=== PATIENT | female | born 1985 | race Caucasian/White ===

== ENCOUNTER 2016-06-16 07:30 | Inpatient (IN) | payer OTHER ==
[2016-06-07 08:28] VITALS: BMI 25.8
--- NOTE | 2016-06-16 07:20 | P.GSHP ---
History of Present Illness H&P Date: 06/16/16 CHIEF COMPLAINT: Recurrent diaphragmatic hiatal hernia. HISTORY OF PRESENT ILLNESS: Smiley Landrum is a 31 year-old female with a prior history of diaphragmatic hiatal hernia with Tamika fundoplasty that was done over 2+ years ago. She had severe complications that were unexpected from the procedure, which had put her into intractable nausea and vomiting, including dysphagia to solid foods. She had a repeat upper endoscopy, which now demonstrates recurrence of her hernia of between 4-[address] scan also demonstrates the same. She actually went to the emergency room over the weekend with severe chest pain, which was consistent from her symptomatic diaphragmatic hiatal hernia. She now presents for further evaluation and management. PAST MEDICAL HISTORY: Please see list. PAST SURGICAL HISTORY: Please see list. MEDICATIONS: Please see list. ALLERGIES: Please see list. SOCIAL HISTORY: No illicit drug use FAMILY HISTORY: No reports of Crohn disease or ulcerative colitis. REVIEW OF ORGAN SYSTEMS: Constitutional: Unintentional of over 100+ pounds weight loss in the last 2 years. HEENT: Wears glasses. Reports dysphagia to solid foods. GI: New onset severe chronic constipation. Gastroesophageal reflux disease. Musculoskeletal: Osteoarthritis. History of back pain. LYMPHATIC: The patient denies any lumps and bumps around the neck. ENDOCRINE: Denies any thyroid disorders. Denies any blood sugar glucose intolerance. RESPIRATORY: Denies pneumonia. Denies any troubles with breathing or dyspnea on exertion. CARDIOVASCULAR: Denies any chest pain, palpitations, or recent heart attacks. GENITOURINARY: Denies any blood in urine or increased urinary frequency. NEUROLOGIC: Denies any numbness or tingling along the distal extremities. No seizure disorders or headaches. PSYCHIATRIC: Denies any depression or suicidal ideation. HEMATOLOGIC: Denies any abnormal bleeding or bruising. BREASTS: Denies any breast lumps, pain or nipple discharge. PHYSICAL EXAM: VITAL SIGNS: Stable Abdomen: Focal epigastric discomfort without peritonitis. GENERAL: Well developed and in no acute distress. Pleasant. HEENT: No sclera icterus. Extraocular movements grossly intact. Moist buccal mucosa. Head is atraumatic, normocephalic. Hears conversational speech. No nasal drainage. NECK: Supple without lymphadenopathy. No JV distention. CHEST: Non-labored respirations and equal bilateral excursions. CARDIOVASCULAR: Regular rate and rhythm. Palpable 2+ radial pulses. MUSCULOSKELETAL: No clubbing, cyanosis or edema. NEUROLOGIC: No focal or lateralizing signs. PSYCH: Appropriate affect. Alert and oriented to person, place and time. STUDIES: CT of the abdomen/pelvis was reviewed in detail with findings demonstrating a large recurrent diaphragmatic hiatal hernia above the diaphragm. Upper endoscopy was also consistent with 6 cm diaphragmatic hiatal hernia. ASSESSMENT: 1. Recurrent diaphragmatic hiatal hernia. 2. Gastroesophageal reflux disease. 3. Dysphagia. 4. Unwanted weight loss. 5. Gastroparesis. PLAN: 1. I have recommended a manometry to exclude esophageal dysmotility as she was told she also had gastroparesis. 2. She had discontinued Reglan, which is exacerbating her symptoms. 3. She did respond to Pepcid and as a result, I have placed her on Omeprazole 40 mg daily, including Zantac for night time heartburn relief. 4. I have reviewed with her the risks for a repeat Tamika fundoplasty including injury to the stomach, esophagus and lungs. Inpatient hospitalization of overnight is anticipated. 5. DVT prophylaxis. 6. Antibiotics prophylaxis. 7. She has completed her manometry with no findings of scleroderma or achalasia. Past Medical History Past Medical History: Asthma, GERD/Reflux, Hyperlipidemia Additional Past Medical History / Comment(s): hiatal hernia, constipation/ diarrhea, History of Any Multi-Drug Resistant Organisms: None Reported Past Surgical History: Back Surgery, Cholecystectomy Additional Past Surgical History / Comment(s): tamika fundoplasty, back surgery x 2 Past Anesthesia/Blood Transfusion Reactions: No Reported Reaction Past Psychological History: Anxiety, Bipolar, Depression Smoking Status: Former smoker Past Alcohol Use History: None Reported Additional Past Alcohol Use History / Comment(s): quit smoking 2014, smoked for 2 yrs -1 PPD Past Drug Use History: Marijuana - Past Family History Mother Family Medical History: No Reported History Medications and Allergies Home Medications Medication Instructions Recorded Confirmed Type Ergocalciferol [Vitamin D2] 50,000 unit PO Q7D 04/14/16 06/07/16 History FLUoxetine HCL [PROzac] 20 mg PO HS 04/14/16 06/07/16 History QUEtiapine [SEROquel] 25 mg PO HS 04/14/16 06/07/16 History clonazePAM [KlonoPIN] 0.5 mg PO BID 04/14/16 06/07/16 History lamoTRIgine [LaMICtal] 400 mg PO HS 04/14/16 06/07/16 History Baclofen 10 mg PO TID 06/07/16 06/07/16 History Omeprazole 40 mg PO HS 06/07/16 06/07/16 History Allergies Allergy/AdvReac Type Severity Reaction Status Date / Time cephalexin [From Keflex] Allergy Rash/Hives Verified 06/07/16 08:21 Iodinated Contrast Media - Allergy Rash/Hives Verified 06/07/16 08:21 Oral and [Iodinated Contrast Media - IV Dye] ketorolac [From Toradol] Allergy Rash/Hives Verified 06/07/16 08:21
[~2016-06-16 07:30] MED LIST: ACETAMINOPHEN IV (For NPO) 1,000 MG in EMPTY BAG 1 BAG IVPB ONE; CLINDAMYCIN 900 MG in DEXTROSE 5% IN WATER 50 ML IVPB ONE; DEXAMETHASONE SOD PHOSPHATE 10 MG/ML 1 ML VIAL IV ONE; HEPARIN SODIUM,PORCINE 5,000 UNIT/ML 1 ML VIAL SQ ONE; LACTATED RINGERS 1,000 ML IV SCH; MIDAZOLAM 2 MG/2 ML VIAL IV PRN; ONDANSETRON 4 MG/2 ML VIAL IVP ONE; SCOPOLAMINE 1.5MG/72HR PATCH TRANSDERM ONE
[2016-06-16] MEDS ORDERED: LIDOCAINE 1% 20 ML VIAL (10MG/ML) FOR IV START INTRADERMA ONE (07:51)
[2016-06-16] MEDS ORDERED: MIDAZOLAM 2 MG/2 ML VIAL IV ONE (08:10)
[2016-06-16 08:18] LABS: Potassium 4.2 mmol/L (3.5-5.1)
[2016-06-16] MEDS ORDERED: LIDOCAINE 1% INJ 10MG/ML (20 ML MDV) ONE (09:16)
[2016-06-16] MEDS ORDERED: fentaNYL (PF) 50 MCG/ML 2 ML AMP ONE (09:16)
[2016-06-16] MEDS ORDERED: PROPOFOL 10 MG/ML 20 ML VIAL IV ONE (09:16)
[2016-06-16] MEDS ORDERED: SUCCINYLCHOLINE CHLORIDE 100 MG/5 ML SYR IV ONE (09:16)
[2016-06-16] MEDS ORDERED: NEOSTIGMINE 1 MG/ML 10 ML VIAL ONE (09:16)
[2016-06-16] MEDS ORDERED: MIDAZOLAM 2 MG/2 ML VIAL ONE (09:16)
[2016-06-16] MEDS ORDERED: ROCURONIUM BROMIDE 10 MG/ML 10 ML VIAL IV ONE (09:16)
[2016-06-16] MEDS ORDERED: GLYCOPYRROLATE 0.2 MG/ML 2 ML VIAL ONE (09:16)
[2016-06-16] MEDS ORDERED: ESMOLOL 100 MG/10 ML VIAL ONE (09:16)
[2016-06-16] MEDS ORDERED: HYDROmorphone (PF) 1 MG/ML ONE (09:16)
[2016-06-16] MEDS ORDERED: BUPIVACAIN-EPI 0.25%-1:200,000 30 ML VIAL SQ ONE (09:57)
[2016-06-16] MEDS ORDERED: diphenhydrAMINE 50 MG/ML 1 ML VIAL IVP PRN (13:37)
[2016-06-16] MEDS ORDERED: SIMETHICONE 40 MG/0.6 ML DROPS 2,000 MG/30 ML BOTTLE PO PRN (13:37)
[2016-06-16] MEDS ORDERED: HYOSCYAMINE ORAL DROPS 1.875 MG/15 ML BOTTLE PO PRN (13:37)
[2016-06-16] MEDS ORDERED: NALOXONE 0.4 MG/ML 1 ML VIAL IV PRN (13:37)
[2016-06-16] MEDS ORDERED: HYDROcodone/APAP 15 ML SOLUTION PO PRN (13:37)
--- NOTE | 2016-06-16 13:37 | P.PCN ---
Date of Procedure: 06/16/16 Preoperative Diagnosis: Recurrent paraesophageal hiatal hernia, gastroesophageal reflux disease, atypical chest pain, previous history of Kristopher fundoplasty Postoperative Diagnosis: Incarcerated recurrent paraesophageal midline hiatal herni, 5 cm, same Procedure(s) Performed: 1. Laparoscopic lysis of adhesions over 2-1/2 hours 2. Takedown of previous Kristopher fundoplasty. 3. Reduction of incarcerated paraesophageal midline diaphragmatic hiatal hernia 5 cm with obstruction. 4. Laparoscopic paraesophageal diaphragmatic hiatal hernia 5 cm with [place] Biopatch a 8 x 8 cm. 5. Laparoscopic Kristopher fundoplasty 6. Intraoperative esophagogastroduodenoscopy Anesthesia: GETA, local Surgeon: Andra Epstein Field Artillery Targeting Technician #1: Shanika Palafox Estimated Blood Loss (ml): 50 Pathology: other (Incarcerated paraesophageal hiatal hernia sac) Condition: stable Disposition: floor Indications for Procedure: Large incarcerated Kristopher fundoplasty in the thoracic cavity requiring moderate reduction in lysis of adhesions over 2-1/2 hours. Final defect 5 cm diaphragmatic hiatal hernia with previous mesh identified along the posterior hiatus. [place] Biopatch a placed along the anterior hiatus with overlap of the posterior hiatus. Bougie of 54-Italian past along hiatal hernia repair. EGD demonstrates intact fundoplasty without leak or defects.
[2016-06-16] MEDS ORDERED: ACETAMINOPHEN IV (For NPO) 1,000 MG in EMPTY BAG 1 BAG IVPB ONE (14:00)
[2016-06-16] MEDS: HYDROmorphone 1 MG/ML 1 ML SYRINGE IVP PRN ×4 (14:09→21:49)
--- NOTE | 2016-06-16 14:32 | XR ---
EXAMINATION TYPE: XR chest 1V portable DATE OF EXAM: 06/16/2016 2:14 PM HISTORY: Dyspnea. REFERENCE: NONE. FINDINGS: There is subcutaneous air present bilaterally and along the left side of the neck. No defin ite pneumothorax is seen. No displaced rib fracture is seen. The lungs appear clear. Pleural spaces a re clear. Heart size is upper limits of normal. The been previous left upper quadrant surgery. IMPRESSION: 1. BILATERAL AREAS OF SUBCUTANEOUS EMPHYSEMA. THE CAUSE OF THIS IS UNCERTAIN. 2. NO DEFINITE ACUTE INTRATHORACIC ABNORMALITY.
[2016-06-16] MEDS: ALBUTEROL NEBULIZED 2.5 MG/3 ML INHALATION SCH ×2 (15:23→21:38)
[2016-06-16] MEDS: 0.9% NACL WITH KCL 20 MEQ/L 1,000 ML IV SCH ×2 (15:47→22:01)
[2016-06-16] MEDS: ONDANSETRON 4 MG/2 ML VIAL IVP PRN (17:46)
[2016-06-16] MEDS: CLINDAMYCIN 900 MG in DEXTROSE 5% IN WATER 50 ML IVPB SCH ×2 (18:39)
--- NOTE | 2016-06-16 20:52 | P.PN ---
Subjective Principal diagnosis: Paraesophageal hiatal hernia The patient is postop day 0 status post takedown of incarcerated recurrent paraesophageal hiatal hernia including redo Kristopher fundoplasty. She reports shoulder pain is improved. She's tolerating ice chips. No reports of reflux disease. Objective - Vital Signs Vital signs: Vital Signs Temp 97.1 F L 06/16/16 14:58 Pulse 72 06/16/16 18:43 Resp 16 06/16/16 18:43 BP 121/73 06/16/16 18:43 Pulse Ox 95 06/16/16 18:43 Intake & Output 06/16/16 06/16/16 06/17/16 06:59 18:59 06:59 Intake Total 3956 Output Total 150 Balance 3806 Weight 77.111 kg Intake: IV 3956 Output: Urine 100 Estimated Blood Loss 50 Other: # Voids 1 - Exam GENERAL: Well developed and in no acute distress. Pleasant. HEENT: No sclera icterus. Extraocular movements grossly intact. Moist buccal mucosa. Head is atraumatic, normocephalic. Hears conversational speech. No nasal drainage. NECK: Supple without lymphadenopathy. No JV distention. CHEST: Non-labored respirations and equal bilateral excursions. CARDIOVASCULAR: Regular rate and rhythm. Palpable 2+ radial pulses. ABDOMEN: Soft, nondistended. Incision sites clean dry and intact. Mild incisional pain as expected. MUSCULOSKELETAL: No clubbing, cyanosis or edema. NEUROLOGIC: No focal or lateralizing signs. PSYCH: Appropriate affect. Alert and oriented to person, place and time. - Labs CBC & Chem 7: 06/16/16 07:53 Labs: Abnormal Lab Results - Last 24 Hours (Table) 06/16/16 Range/Units 07:53 Chloride 108 H (98-107) mmol/L Assessment and Plan (1) History of Kristopher fundoplication Status: Acute (2) Slipped Kristopher fundoplication Status: Acute (3) Paraesophageal hernia with obstruction but no gangrene Status: Acute (4) Gastroesophageal reflux Status: Chronic (5) Atypical chest pain Status: Chronic (6) Dysphagia Status: Chronic (7) Depression Status: Chronic (8) Bipolar disorder, unspecified Status: Chronic (9) Osteoarthritis Status: Chronic (10) History of repair of hiatal hernia Status: Acute Plan: 1. Clinically she is improved. 2. Recommend magnesium levels to be checked for hypo-magnesia. 3. Upper GI in the morning to evaluate for dysphagia. 4. I personally discussed her home medication list with the pharmacist. Most of her medications are crushable or capsules may be open. 5. Postop Kristopher diet to include liquid diet only for 2 weeks. 6. Incentive spirometry 10 times per hour. 7. DVT prophylaxis.
[2016-06-16] MEDS ORDERED: FLUoxetine HCL 20 MG CAP PO SCH (21:00)
[2016-06-16] MEDS ORDERED: lamoTRIgine 100 MG TAB PO SCH (21:00)
[2016-06-16] MEDS ORDERED: QUEtiapine 25 MG TAB PO SCH (21:00)
[2016-06-16] MEDS: clonazePAM 0.5 MG TAB PO SCH (21:55)
[2016-06-17] MEDS: HYDROmorphone 1 MG/ML 1 ML SYRINGE IVP PRN ×3 (01:48→11:43)
[2016-06-17] MEDS: CLINDAMYCIN 900 MG in DEXTROSE 5% IN WATER 50 ML IVPB SCH ×2 (01:54)
[2016-06-17] MEDS: 0.9% NACL WITH KCL 20 MEQ/L 1,000 ML IV SCH (04:40)
[2016-06-17 08:06] LABS: Basophils % (A) 0 %; CH 28.8; Eosinophils % (A) 0 %; HDW 2.55; HGB 12.2 gm/dL (11.4-16.0); Luc # (Auto) 0.07; Luc % (Auto) 1; Lymphocytes # (A) 0.8 k/uL (1.0-4.8); Lymphocytes % (A) 8 %; MCH 28.8 pg (25.0-35.0); MCV 87.4 fL (80.0-100.0); Mean Platelet Volume 7.1; Monocytes # (A) 0.5 k/uL (0-1.0); Monocytes % (A) 5 %; Neutrophils # (A) 8.2 k/uL (1.3-7.7); Neutrophils % (A) 86 %; RBC 4.23 m/uL (3.80-5.40); WBC 9.6 k/uL (3.8-10.6); WBC (Perox) 10.51
[2016-06-17 08:21] LABS: Anion Gap 7 mmol/L; Blood Urea Nitrogen 7 mg/dL (7-17); Calcium 8.3 mg/dL (8.4-10.2); Carbon Dioxide 23 mmol/L (22-30); Chloride 108 mmol/L (98-107); Magnesium 1.5 mg/dL (1.6-2.3); Non-African American GFR(MDRD) >60 (>60 ml/min/1.73 sqM); Phosphorous 3.3 mg/dL (2.5-4.5); Potassium 4.6 mmol/L (3.5-5.1); Sodium 138 mmol/L (137-145)
[2016-06-17] MEDS: ALBUTEROL NEBULIZED 2.5 MG/3 ML INHALATION SCH ×2 (08:58→12:04)
[2016-06-17] MEDS ORDERED: ENOXAPARIN 40 MG/0.4 ML SYRINGE SQ SCH (09:00)
[2016-06-17] MEDS ORDERED: PANTOPRAZOLE 40 MG/10 ML VIAL IV SCH (09:00)
--- NOTE | 2016-06-17 09:25 | FL ---
EXAMINATION TYPE: FL UGI DATE OF EXAM: 06/17/2016 9:17 AM COMPARISON: NONE HISTORY: Post Josep fundoplication TECHNIQUE: A single/double contrast UGI study is performed. FINDINGS: Repulping Supervisor image of the abdomen shows no gross abnormality. The distal esophagus opens to normal caliber post Josep fundoplication without significant hesitancy . No persistent stenosis is evident. Contrast within the stomach. No reflux is evident during the exam. No significant free air is present . IMPRESSION: 1. No extravasation or persistent stenosis post Josep fundoplication.
--- NOTE | 2016-06-17 09:43 | OP ---
DATE OF SERVICE: 06/16/2016 SURGEON: ROYAL LAI MD AIR FORCE SENIOR OFFICER: GHADA Giles PREOPERATIVE DIAGNOSES: 1. Previous history of Kristopher fundoplasty. 2. Dysphagia secondary to prior Kristopher fundoplasty. 3. Complications from previous hiatal hernia repair. 4. Recurrent diaphragmatic hiatal hernia. 5. Dysphagia. 6. History of depression. 7. Asthma. 8. Anxiety. 9. Bipolar disorder. 10. Depression. 11. Gastroesophageal reflux disease with esophagitis. POSTOPERATIVE DIAGNOSES: 1. Previous history of Kristopher fundoplasty. 2. Dysphagia secondary to prior Kristopher fundoplasty. 3. Complications from previous hiatal hernia repair. 4. Recurrent diaphragmatic hiatal hernia. 5. Dysphagia. 6. History of depression. 7. Asthma. 8. Anxiety. 9. Bipolar disorder. 10. Depression. 11. Gastroesophageal reflux disease with esophagitis. 12. Incarcerated recurrent diaphragmatic midline paraesophageal hiatal hernia, 5 cm. OPERATION: 1. Diagnostic laparoscopy. 2. Laparoscopic reduction of incarcerated midline periesophageal diaphragmatic hiatal hernia. 3. Extensive laparoscopic lysis of adhesions over 2-1/2 hours. 4. Laparoscopic repair of incarcerated recurrent diaphragmatic hiatal hernia 5 cm using [place] Biopatch A 8 x 8 cm. 5. Laparoscopic Kristopher fundoplasty. 6. Intraoperative esophagogastroduodenoscopy. ANESTHESIA: ESTIMATED BLOOD LOSS: 50 mL. SPECIMENS REMOVED: Hernia sac. COMPLICATIONS: None. OPERATIVE FINDINGS: 1. Recurrent midline diaphragmatic hiatal hernia was found along the anterior hiatus. 2. Her initial fundoplasty was found incarcerated along the mediastinum causing obstruction. 3. Moderate extensive lysis of adhesions and takedown of her Kristopher fundoplasty was required over 2-1/2 hours. 4. The right vagi nerve was found to be intact. 5. Intra-abdominal esophageal length obtained of 3 cm. 6. Size of her paraesophageal hiatal hernia of 5 cm. 7. Previous mesh identified along the hiatus from the 9 o'clock to the 3 o'clock position of a [place] type or nonabsorbable type. 8. 54 Sinhala bougie easily passed along the hiatal hernia repair. 9. Intraoperative esophagogastroduodenoscopy confirms no leaks or esophageal or gastric mucosal full-thickness injury. 10. No evidence of lower abdominal wall hernias. INDICATIONS: Smiley Landrum is a 31-year-old female with previous history of Kristopher fundoplasty done over 2+ years ago at an outside institution. She reports she had multiple complications from her procedure including recurrent chest pain and neck pain. Her reflux disease had progressed and she has developed also gastroparesis. She has had chronic nausea and vomiting including recurrent admissions to the ER as a result of the complications from her Kristopher fundoplasty. She has undergone diagnostic testing, including manometry which excluded scleroderma or achalasia. She had features consistent with ineffective motility from persistent reflux disease. Her upper endoscopy including CT of the abdomen and pelvis was consistent with recurrent diaphragmatic hiatal hernia with herniation of the fundoplasty into the mediastinum. Surgical intervention was carefully described including the possibility of bleeding, infection, recurrence, injury to the bilateral vagi nerves as well as need for revision of her Kristopher fundoplasty, and dysphagia. The possibility of abandoning her procedure was also reviewed with her and her mother. Benefits and risks were reviewed. Informed consent was obtained. DESCRIPTION: Patient was brought to the operating room, laid in supine position. After general induction, the abdomen had been prepped and draped in standard sterile fashion. Prior to incision, a timeout protocol was confirmed with surgical team regarding the patient's name including procedure to be performed. A Chowdhury catheter had also been placed. Along the left upper quadrant, a 10 mm 0-degree 5 mm laparoscopic trocar entry was performed and entered into abdominal cavity. No evidence of lower abdominal hernias were identified. Of the hiatus, an indentation anterior was consistent with recurrent diaphragmatic hiatal hernia. Next two 5 mm trocars were placed along the left upper abdomen. Another 5 mm trocar was placed just above the umbilicus for which the xiphoid to the umbilical length was 9.5 cm. Another 5 mm trocar was placed along the right upper quadrant for the catering administrative assistant. A medium-sized Julio liver retractor was placed just below the xiphoid as to elevate the left lobe of the liver. The liver retractor was held in place using an iron spring internship. The patient was placed in reverse Trendelenburg position. Along the hiatus especially along the gastrohepatic ligament, this portion was completely scarred from her previous surgery. Initial attention was brought from the left lateral aspect of the hernia and the phrenoesophageal ligament was carefully dissected free. Dense adhesions from her previous surgery was scarred to her fundoplasty along the liver serosa and carefully dissected free. Extensive lysis of adhesions occurred well over 2-1/2 hours as to execute with minimal bleeding or injury to the stomach, vagi nerve or liver parenchyma. A hiatal hernia sac was encountered and reduced from the mediastinum into the abdominal cavity. As such, the previous fundoplasty was reduced into the abdominal cavity and dissected free and unwoven. Surgidac sutures from her previous surgery were identified and also resected. Along the posterior hiatus a remnant of what appeared to be a [place] type mesh was identified to reinforce the posterior hiatal herniorrhaphy. Her recurrence was found anteriorly for which this portion of the hiatal hernia repair was not reinforced. With careful communication with anesthesia, the rest of the esophagus was bluntly dissected and mobilized from the distal to mid and proximal esophagus as to obtain adequate length of the esophagus. Over 3 cm of intraabdominal esophageal length was obtained. As the esophagus and fundoplasty were completely taken down after 2-1/2 plus hours, the hiatus was measured consistent with 5 cm in both the axial as well as transverse dimension. Again, the length of the esophagus was found to be at least 3 to 4 cm into the abdominal cavity as to perform an adequate redo Kristopher fundoplasty. Attention was now brought to closure of the hiatus, however, to confirm no esophageal injury or gastric injury, I then went to the head of the bed to perform intraoperative esophagogastroduodenoscopy. An adult size Olympus gastroscope was passed along the posterior oropharynx down to the distal esophagus whereby no injury had occurred along the distal esophagus. The proximal portion of the stomach was entered and also confirmed no gastrotomy. The scope was retroflexed with careful observation of the lower esophageal valve, which is consistent with a Hill grade 2 lower esophageal valve. This confirmed complete takedown of her Kristopher fundoplasty as well. The scope was held in place as to allow for the hiatus closure. I then rescrubbed whereby initial 2-Surgidac on an Endo Stitch was used to perform initial closure along the posterior hiatal herniorrhaphy. Given the size and thickness of the haital tissue, a single suture using 2-0 Ethibond with the suture passer technique was used to reapproximate the hiatus. Tension along the re-approximated hiatus was identified and secure. With coordination with the nurse chemical research technician and direct visualization, a 54 Sinhala bougie had easily passed along the esophagus beyond the repaired hiatus confirming a good approximation of the hiatal closure. Next to buttress the repair, a [place] Biopatch A 8 x 8 cm was cut in a keyhole fashion as to reinforce the anterior hiatus including circumferentially. The mesh was placed as an [place] of the posterior hiatal hernia raphe and actually placed in a reverse C position. The mesh was tacked at the 9 o'clock and 12 o'clock position without any encroachment onto the esophagus. Please note the righ vagus nerve was identified and spared from harm. As the hiatus was closed and the mesh had been placed, preparation for a Krsitopher fundoplasty was performed. The cut edge of the superior pole of the stomach was swung posteriorly. A Shoe shine technique confirmed no tension or torsion of the proposed Kristopher fundoplasty. Next, with the help of the catering administrative assistant, the esophagus was retracted into the abdominal cavity as to obtain secure fundoplication over the distal esophagus. A gastric to esophageal to gastric bite was performed from a left to right fashion. The stitch was placed using a 2-0 Surgidac and Endo Stitch. Additional 2-0 sutures were placed to create approximately 2.5 cm Kristopher fundoplasty. The fundoplasty was found to lay at the 1 o'clock position given her redo repair. Hemostasis had been checked. I then went back to the head of the bed to perform a completion endoscopic evaluation whereby the distal esophagus again was unharmed. Retroflexion of the scope into the stomach confirmed a 360 repair with a Hill grade I lower esophageal valve. Again no full thickness gastrotomy or esophageal injury was confirmed. The stomach was desufflated. This completed the endoscopic portion of the case. I then went back to the bedside of the patient whereby all instruments and pneumoperitoneum were evacuated from the abdominal cavity. Her 10 mm port site fascial defect was less than 8 mm. The incision of the 11 mm trocar was reinforced using 3-0 Vicryl for the deep dermis. For the rest of the incisions 4-0 Monocryl in an interrupted subcuticular fashion was placed. Total of 30 mL 0.25% Marcaine with epinephrine was infiltrated to all wounds for postop analgesia. The skin was cleansed and Dermabond was applied. Of the left lateral port site, this was reinforced with Optifoam. Her chowdhury catheter was discontinued. To minimize risk for thoracic subcutaneous emphysema, the patient was hyperventilated at the end of the case. The patient was transferred to the postanesthesia care unit, extubated in stable condition. Intraoperative films including findings were carefully discussed with the patient's family who were very pleased with the procedure. CATALINO
[2016-06-17 09:44] VITALS: BP 110/70; PULSE 82; RESP 19; TEMP 97.3
[2016-06-17] MEDS: MAGNESIUM SULFATE-D5W PMX 1 GM in DEXTROSE/WATER 1 100ML.BAG IVPB SCH ×4 (10:07→13:59)
[2016-06-17] MEDS: clonazePAM 0.5 MG TAB PO SCH (10:11)
[2016-06-17] MEDS ORDERED: HYDROcodone/APAP 7.5-325MG 1 EACH TAB PO PRN (12:03)
--- NOTE | 2016-06-17 12:15 | P.PN ---
Subjective Principal diagnosis: Paraesophageal hiatal hernia The patient is postop day 1 status post takedown of incarcerated recurrent paraesophageal hiatal hernia including redo Kristopher fundoplasty. Her shoulder pain is resolved. She is swallowing without any signs of dysphagia. She had also passed her swallow study. She complains of incisional pain. Objective - Vital Signs Vital signs: Vital Signs Temp 97.3 F L 06/17/16 09:43 Pulse 82 06/17/16 09:43 Resp 19 06/17/16 09:43 BP 110/70 06/17/16 09:43 Pulse Ox 94 L 06/17/16 09:43 Intake & Output 06/16/16 06/17/16 06/17/16 18:59 06:59 18:59 Intake Total 3956 Output Total 150 350 Balance 3806 -350 Weight 77.111 kg 77.111 kg Intake: IV 3956 Output: Urine 100 350 Estimated Blood Loss 50 Other: # Voids 1 - Exam GENERAL: Well developed and in no acute distress. Pleasant. HEENT: No sclera icterus. Extraocular movements grossly intact. Moist buccal mucosa. Head is atraumatic, normocephalic. Hears conversational speech. No nasal drainage. NECK: Supple without lymphadenopathy. No JV distention. CHEST: Non-labored respirations and equal bilateral excursions. CARDIOVASCULAR: Regular rate and rhythm. Palpable 2+ radial pulses. ABDOMEN: Soft nondistended. Incisions clean dry and intact with Dermabond. MUSCULOSKELETAL: No clubbing, cyanosis or edema. NEUROLOGIC: No focal or lateralizing signs. PSYCH: Appropriate affect. Alert and oriented to person, place and time. - Labs CBC & Chem 7: 06/17/16 07:10 06/17/16 07:10 Labs: Abnormal Lab Results - Last 24 Hours (Table) 06/17/16 06/17/16 Range/Units 07:10 07:10 Neutrophils # 8.2 H (1.3-7.7) k/uL Lymphocytes # 0.8 L (1.0-4.8) k/uL Chloride 108 H (98-107) mmol/L Calcium 8.3 L (8.4-10.2) mg/dL Magnesium 1.5 L (1.6-2.3) mg/dL - Imaging and Cardiology Abdominal x-ray: other (Esophagram reviewed demonstrating no evidence of obstruction or leak) Assessment and Plan (1) History of Kristopher fundoplication Status: Acute (2) Slipped Kristopher fundoplication Status: Acute (3) Paraesophageal hernia with obstruction but no gangrene Status: Acute (4) Gastroesophageal reflux Status: Chronic (5) Atypical chest pain Status: Chronic (6) Dysphagia Status: Chronic (7) Depression Status: Chronic (8) Bipolar disorder, unspecified Status: Chronic (9) Osteoarthritis Status: Chronic (10) History of repair of hiatal hernia Status: Acute Plan: 1. Her symptoms of dysphagia and reflux is resolved. 2. Pain medication options reviewed. She reports prohibitive cost of liquid Narco. We'll start oral tablets. 3. Post-Kristopher diet was reviewed. 4. Patient may be discharged in 24 hours.
[2016-06-17] MEDS ORDERED: HYDROcodone/APAP 15 ML SOLUTION PO PRN (12:30)
--- NOTE | 2016-06-17 12:35 | P.DS ---
Providers Date of admission: 06/16/16 07:42 Expected date of discharge: 06/17/16 Attending physician: Andra Epstein Primary care physician: Elaina Dolan - Discharge Diagnosis(es) (1) History of Kristopher fundoplication Current Visit: Yes Status: Acute (2) Slipped Kristopher fundoplication Current Visit: Yes Status: Acute (3) Paraesophageal hernia with obstruction but no gangrene Current Visit: Yes Status: Acute (4) Gastroesophageal reflux Current Visit: Yes Status: Chronic (5) Atypical chest pain Current Visit: Yes Status: Chronic (6) Dysphagia Current Visit: Yes Status: Chronic (7) Depression Current Visit: Yes Status: Chronic (8) Bipolar disorder, unspecified Current Visit: Yes Status: Chronic (9) Osteoarthritis Current Visit: Yes Status: Chronic (10) History of repair of hiatal hernia Current Visit: Yes Status: Acute Hospital Course: The patient has history of previous Kristohper fundoplasty done at an outside his situation now with recurrence. She had a slipped Kristopher including a diaphragmatic hiatal hernia with obstruction. She underwent takedown of her Kristopher fundoplasty including lysis of adhesions. A redo Kristopher fundoplasty with diaphragmatic hiatal hernia repair was performed. Postoperatively she was tolerating diet. Her symptoms of atypical chest pain including dysphagia and reflux had resolved. Discharge instructions including discharge diet were reviewed which she verbalized understanding. Pertinent Studies: Upper GI demonstrating no leaks or complete obstruction Procedures: 1. Laparoscopic lysis of adhesions over 2-1/2 hours 2. Takedown of previous Kristopher fundoplasty. 3. Reduction of incarcerated paraesophageal midline diaphragmatic hiatal hernia 5 cm with obstruction. 4. Laparoscopic paraesophageal diaphragmatic hiatal hernia 5 cm with [employer] Biopatch a 8 x 8 cm. 5. Laparoscopic Kristopher fundoplasty 6. Intraoperative esophagogastroduodenoscopy Patient Condition at Discharge: Stable Plan - Discharge Summary Discharge Medication List FLUoxetine HCL [PROzac] 20 mg PO HS 04/14/16 [History] QUEtiapine [SEROquel] 25 mg PO HS 04/14/16 [History] clonazePAM [KlonoPIN] 0.5 mg PO BID 04/14/16 [History] lamoTRIgine [LaMICtal] 400 mg PO HS 04/14/16 [History] Baclofen 10 mg PO TID 06/07/16 [History] HYDROcodone/APAP [[place] Elixir 7.5-325Mg/15Ml] 15 ml PO Q6H PRN #0 solution [Rx] Follow up Appointment(s)/Referral(s): Andra Epstein MD [STAFF PHYSICIAN] - 06/27/16 Patient Instructions/Handouts: Adult Laparoscopic Kristopher Fundoplication (DC), Laparoscopic Hiatal Hernia Repair (DC), Clear Liquid Diet (GEN) Activity/Diet/Wound Care/Special Instructions: All of her medications may be crushed and taken with liquids. No lifting over 4 pounds in 4 weeks. Avoid carbonated beverages. Follow Kristopher diet per [facility] Kristopher diet. May shower. Discharge Disposition: HOME SELF-CARE
[2016-06-17] MEDS: ONDANSETRON 4 MG/2 ML VIAL IVP PRN (15:03)
[2016-06-18] MEDS ORDERED: BISACODYL 5 MG TABLET.DR PO PRN (08:00)
== END 2016-06-17 15:35 | disposition home or self-care (01) | DRG 327 ==
LOC: 2ORWHC 07:42 → 6PED 13:43
PROVIDERS: ADMIT Surgery Plastic and Reconstructive Surgery; ATTEND Surgery Plastic and Reconstructive Surgery
PROC: 0BUR4JZ (ICD-10-PCS; 2016-06-16)
PROC: 0BUS4JZ (ICD-10-PCS; 2016-06-16)
PROC: 0DN54ZZ Release Esophagus, Percutaneous Endoscopic Approach (ICD-10-PCS; 2016-06-16)
PROC: 0DN64ZZ Release Stomach, Percutaneous Endoscopic Approach (ICD-10-PCS; 2016-06-16)
PROC: 0DJ08ZZ Inspection of Upper Intestinal Tract, Via Natural or Artificial Opening Endoscopic (ICD-10-PCS; 2016-06-16)
PROC: 0DV44ZZ Restriction of Esophagogastric Junction, Percutaneous Endoscopic Approach (ICD-10-PCS; principal; 2016-06-16 09:00)
DX: K91.89 Other postprocedural complications and disorders of digestive system (principal); K44.0 Diaphragmatic hernia with obstruction, without gangrene; K66.8 Other specified disorders of peritoneum; K31.84 Gastroparesis; R13.19 Other dysphagia; K21.9 Gastro-esophageal reflux disease without esophagitis; E78.5 Hyperlipidemia, unspecified; J45.909 Unspecified asthma, uncomplicated; F31.9 Bipolar disorder, unspecified; F41.9 Anxiety disorder, unspecified; M19.90 Unspecified osteoarthritis, unspecified site; Y83.8 Other surgical procedures as the cause of abnormal reaction of the patient, or of later complication, without mention of misadventure at the time of the procedure; Z87.891 Personal history of nicotine dependence; Z79.899 Other long term (current) drug therapy
CPT/HCPCS: 71010; 74240; 80051; 82310; 82565; 83735; 84100; 84520; 85025; 88302; 94760

== ENCOUNTER 2016-06-18 05:38 | Inpatient (IN) | payer OTHER ==
[2016-06-18] MEDS ORDERED: SODIUM CHLORIDE 0.9% 500 ML IV STA (06:46)
[2016-06-18] MEDS ORDERED: ONDANSETRON 4 MG/2 ML VIAL IVP STA ×2 (06:46→07:21)
[2016-06-18 06:59] LABS: Basophils # (A) 0.1 k/uL (0-0.2); Basophils % (A) 1 %; CH 29.3; CHCM 34.6; Eosinophils # (A) 0.1 k/uL (0-0.7); Eosinophils % (A) 2 %; HCT 39.7 % (34.0-46.0); HDW 2.58; HGB 13.3 gm/dL (11.4-16.0); Luc # (Auto) 0.02; Luc % (Auto) 0; Lymphocytes # (A) 0.6 k/uL (1.0-4.8); Lymphocytes % (A) 8 %; MCH 28.4 pg (25.0-35.0); MCHC 33.4 g/dL (31.0-37.0); Mean Platelet Volume 7.9; Monocytes # (A) 0.4 k/uL (0-1.0); Monocytes % (A) 6 %; Neutrophils # (A) 6.1 k/uL (1.3-7.7); Neutrophils % (A) 83 %; RBC 4.67 m/uL (3.80-5.40); RDW 12.2 % (11.5-15.5); WBC 7.3 k/uL (3.8-10.6); WBC (Perox) 7.41
[2016-06-18 07:09] LABS: ALT 260 U/L (9-52); AST 242 U/L (14-36); Alkaline Phosphatase 75 U/L (38-126); Amylase <30 U/L (30-110); Anion Gap 8 mmol/L; Blood Urea Nitrogen 5 mg/dL (7-17); Calcium 8.7 mg/dL (8.4-10.2); Carbon Dioxide 25 mmol/L (22-30); Chloride 107 mmol/L (98-107); Glucose 90 mg/dL (74-99); Non-African American GFR(MDRD) >60 (>60 ml/min/1.73 sqM); Potassium 4.1 mmol/L (3.5-5.1); Sodium 140 mmol/L (137-145); Total Bilirubin 1.1 mg/dL (0.2-1.3); Total Protein 6.2 g/dL (6.3-8.2)
[2016-06-18] MEDS: MORPHINE SULFATE 4 MG/ML SYRINGE IV STA ×2 (07:14→08:01)
[2016-06-18] MEDS ORDERED: HYDROmorphone 1 MG/ML 1 ML SYRINGE IVP STA (07:21)
[2016-06-18] MEDS ORDERED: ACETAMINOPHEN IV (For NPO) 1,000 MG in SALINE 100 100ML.BAG IVPB STA (07:22)
--- NOTE | 2016-06-18 07:25 | ED ---
General Adult HPI - General Chief complaint: Nausea/Vomiting/Diarrhea Stated complaint: Vomiting Time Seen by Provider: 06/18/16 07:00 Source: patient, family, RN notes reviewed Mode of arrival: ambulatory Limitations: no limitations - History of Present Illness Initial comments: This is a 31-year-old female who presents to the emergency department complaining of vomiting. Patient states she was just released from the hospital yesterday after having a redo of hiatal hernia surgery. Patient states she got home and became nauseous and was unable to keep down any pain meds so now her abdomen is very painful plus the vomiting is making her abdomen hurt more. Patient states she remains nauseated. Patient denies any blood in the emesis. Patient denies any diarrhea. Patient denies any fever chills. Patient denies any chest pain or difficulty breathing or shortness of breath. She does state it is a little more difficult to take a deep breath but she thinks is because of her abdominal pain. Patient denies any lightheadedness dizziness or near syncopal episode. Patient denies any redness or drainage from the incision sites. - Related Data Home Medications Medication Instructions Recorded Confirmed FLUoxetine HCL [PROzac] 20 mg PO HS 04/14/16 06/18/16 QUEtiapine [SEROquel] 25 mg PO HS 04/14/16 06/18/16 clonazePAM [KlonoPIN] 0.5 mg PO BID 04/14/16 06/18/16 lamoTRIgine [LaMICtal] 400 mg PO HS 04/14/16 06/18/16 Baclofen 10 mg PO TID 06/07/16 06/18/16 Previous Rx's Medication Instructions Recorded HYDROcodone/APAP [[place] Elixir 15 ml PO Q6H PRN #0 solution 06/17/16 7.5-325Mg/15Ml] Allergies Allergy/AdvReac Type Severity Reaction Status Date / Time cephalexin [From Keflex] Allergy Rash/Hives Verified 06/18/16 06:14 Iodinated Contrast Media - Allergy Rash/Hives Verified 06/18/16 06:14 Oral and [Iodinated Contrast Media - IV Dye] ketorolac [From Toradol] Allergy Rash/Hives Verified 06/18/16 06:14 Review of Systems ROS Statement: Those systems with pertinent positive or pertinent negative responses have been documented in the HPI. ROS Other: All systems not noted in ROS Statement are negative. Past Medical History Past Medical History: Asthma, GERD/Reflux, Hyperlipidemia Additional Past Medical History / Comment(s): hiatal hernia, constipation/ diarrhea, History of Any Multi-Drug Resistant Organisms: None Reported Past Surgical History: Back Surgery, Cholecystectomy Additional Past Surgical History / Comment(s): tamika fundoplasty, back surgery x 2 Past Anesthesia/Blood Transfusion Reactions: No Reported Reaction Past Psychological History: Anxiety, Bipolar, Depression Smoking Status: Former smoker Past Alcohol Use History: None Reported Additional Past Alcohol Use History / Comment(s): quit smoking 2014, smoked for 2 yrs -1 PPD Past Drug Use History: Marijuana - Past Family History Mother Family Medical History: No Reported History General Exam - General Exam Comments Initial Comments: GENERAL: Patient is well-developed and well-nourished. Patient is nontoxic and well- hydrated and is in mild distress. ENT: Neck is soft and supple. No significant lymphadenopathy is noted. Oropharynx is clear. Moist mucous membranes. Neck has full range of motion without eliciting any pain. EYES: The sclera were anicteric and conjunctiva were pink and moist. Extraocular movements were intact and pupils were equal round and reactive to light. Eyelids were unremarkable. PULMONARY: Unlabored respirations. Good breath sounds bilaterally. No audible rales rhonchi or wheezing was noted. CARDIOVASCULAR: There is a regular rate and rhythm without any murmurs gallops or rubs. ABDOMEN: Abdomen is diffusely tender. SKIN: Skin is clear with no lesions or rashes and otherwise unremarkable. NEUROLOGIC: Patient is alert and oriented x3. Cranial nerves II through XII are grossly intact. Motor and sensory are also intact. Normal speech, volume and content. Symmetrical smile. MUSCULOSKELETAL: Normal extremities with adequate strength and full range of motion. LYMPHATICS: No significant lymphadenopathy is noted PSYCHIATRIC: Normal psychiatric evaluation. Limitations: no limitations Course Vital Signs 06/18/16 06:10 Temperature 98.4 F Pulse Rate 91 Respiratory 20 Rate Blood Pressure 132/82 O2 Sat by Pulse 96 Oximetry Medical Decision Making - Lab Data Result diagrams: 06/18/16 06:42 06/18/16 06:42 Lab Results 06/18/16 06/18/16 06/18/16 Range/Units 06:42 06:42 07:24 WBC 7.3 (3.8-10.6) k/uL RBC 4.67 (3.80-5.40) m/uL Hgb 13.3 (11.4-16.0) gm/dL Hct 39.7 (34.0-46.0) % MCV 85.0 (80.0-100.0) fL MCH 28.4 (25.0-35.0) pg MCHC 33.4 (31.0-37.0) g/dL RDW 12.2 (11.5-15.5) % Plt Count 120 L (150-450) k/uL Neutrophils % 83 % Lymphocytes % 8 % Monocytes % 6 % Eosinophils % 2 % Basophils % 1 % Neutrophils # 6.1 (1.3-7.7) k/uL Lymphocytes # 0.6 L (1.0-4.8) k/uL Monocytes # 0.4 (0-1.0) k/uL Eosinophils # 0.1 (0-0.7) k/uL Basophils # 0.1 (0-0.2) k/uL Sodium 140 (137-145) mmol/L Potassium 4.1 (3.5-5.1) mmol/L Chloride 107 (98-107) mmol/L Carbon Dioxide 25 (22-30) mmol/L Anion Gap 8 mmol/L BUN 5 L (7-17) mg/dL Creatinine 0.71 (0.52-1.04) mg/dL Est GFR (MDRD) Af Amer >60 (>60 ml/min/1.73 sqM) Est GFR (MDRD) Non-Af >60 (>60 ml/min/1.73 sqM) Glucose 90 (74-99) mg/dL Plasma Lactic Acid Mendez (0.7-2.0) mmol/L Calcium 8.7 (8.4-10.2) mg/dL Total Bilirubin 1.1 (0.2-1.3) mg/dL AST 242 H (14-36) U/L ALT 260 H (9-52) U/L Alkaline Phosphatase 75 (38-126) U/L Total Protein 6.2 L (6.3-8.2) g/dL Albumin 3.5 (3.5-5.0) g/dL Amylase <30 L (30-110) U/L Lipase 1028 H (23-300) U/L Urine Color Light Yellow Urine Appearance Clear (Clear) Urine pH 8.0 (5.0-8.0) Ur Specific [place] 1.004 (1.001-1.035) Urine Protein Negative (Negative) Urine Glucose (UA) Negative (Negative) Urine Ketones 1+ H (Negative) Urine Blood Negative (Negative) Urine Nitrate Negative (Negative) Urine Bilirubin Negative (Negative) Urine Urobilinogen <2.0 (<2.0) mg/dL Ur Leukocyte Esterase Negative (Negative) Urine HCG, Qual (Not Detectd) 06/18/16 06/18/16 Range/Units 07:24 07:59 WBC (3.8-10.6) k/uL RBC (3.80-5.40) m/uL Hgb (11.4-16.0) gm/dL Hct (34.0-46.0) % MCV (80.0-100.0) fL MCH (25.0-35.0) pg MCHC (31.0-37.0) g/dL RDW (11.5-15.5) % Plt Count (150-450) k/uL Neutrophils % % Lymphocytes % % Monocytes % % Eosinophils % % Basophils % % Neutrophils # (1.3-7.7) k/uL Lymphocytes # (1.0-4.8) k/uL Monocytes # (0-1.0) k/uL Eosinophils # (0-0.7) k/uL Basophils # (0-0.2) k/uL Sodium (137-145) mmol/L Potassium (3.5-5.1) mmol/L Chloride (98-107) mmol/L Carbon Dioxide (22-30) mmol/L Anion Gap mmol/L BUN (7-17) mg/dL Creatinine (0.52-1.04) mg/dL Est GFR (MDRD) Af Amer (>60 ml/min/1.73 sqM) Est GFR (MDRD) Non-Af (>60 ml/min/1.73 sqM) Glucose (74-99) mg/dL Plasma Lactic Acid Mendez 0.6 L (0.7-2.0) mmol/L Calcium (8.4-10.2) mg/dL Total Bilirubin (0.2-1.3) mg/dL AST (14-36) U/L ALT (9-52) U/L Alkaline Phosphatase (38-126) U/L Total Protein (6.3-8.2) g/dL Albumin (3.5-5.0) g/dL Amylase (30-110) U/L Lipase (23-300) U/L Urine Color Urine Appearance (Clear) Urine pH (5.0-8.0) Ur Specific [place] (1.001-1.035) Urine Protein (Negative) Urine Glucose (UA) (Negative) Urine Ketones (Negative) Urine Blood (Negative) Urine Nitrate (Negative) Urine Bilirubin (Negative) Urine Urobilinogen (<2.0) mg/dL Ur Leukocyte Esterase (Negative) Urine HCG, Qual Not Detected (Not Detectd) Disposition Clinical Impression: Pancreatitis Disposition: ADMITTED IP TO THIS [facility] Time of Disposition: 09:45
[2016-06-18 07:38] LABS: Appearance,Urine Clear (Clear); Bilirubin,Urine Negative (Negative); Glucose,Urine (UA) Negative (Negative); Ketones,Urine 1+ (Negative); Leukocyte Esterase,Urine Negative (Negative); Nitrite,Urine Negative (Negative); Protein,Urine Negative (Negative); Specific Gravity,Urine 1.004 (1.001-1.035); UA Billing (MACRO vs. MICRO) CHEM; Urobilinogen,Urine <2.0 mg/dL (<2.0)
[2016-06-18] MEDS: SODIUM CHLORIDE 0.9% 1,000 ML IV ONE ×2 (08:00→15:48)
--- NOTE | 2016-06-18 09:16 | XR ---
EXAMINATION TYPE: XR chest 2V DATE OF EXAM: 06/18/2016 8:18 AM COMPARISON: 06/16/2016 INDICATION: Difficulty breathing TECHNIQUE: Frontal and lateral views of the chest are obtained. FINDINGS: The heart size is normal. The pulmonary vasculature is normal. The lungs are clear. Previous subcutaneous emphysema has largely resolved with minimal residual rafael ining. No pneumothorax is evident IMPRESSION: 1. No acute pulmonary process.
[2016-06-18] MEDS ORDERED: SODIUM CHLORIDE 0.9% 1,000 ML IV ONE (09:46)
[2016-06-18] MEDS ORDERED: HYDROmorphone 1 MG/ML 1 ML SYRINGE IVP PRN ×2 (09:48→09:49)
[2016-06-18] MEDS: SODIUM CHLORIDE 0.9% 1,000 ML IV SCH ×3 (11:41→23:22)
[2016-06-18] MEDS ORDERED: SODIUM CHLORIDE 0.9% 2,000 ML IV ONE (12:50)
[2016-06-18] MEDS ORDERED: SCOPOLAMINE 1.5MG/72HR PATCH TRANSDERM STA (13:01)
--- NOTE | 2016-06-18 13:01 | P.GSHP ---
History of Present Illness H&P Date: 06/18/16 Chief Complaint: Intractable nausea and vomiting The patient is a 31-year-old female who is now postop day #2 status post repair of an incarcerated recurrent diaphragmatic hiatal hernia. Actually she had just gone home yesterday and reports that upon arrival at home she started developing nausea. She took an old prescription of Zofran for symptoms. She had taken her pain medication and was able to fall asleep. After waking up early this morning, she had nausea and started retching. Given concerns from her recent surgery, she came right back to the hospital. Her blood work demonstrated elevated lipase level of 1000. She denies any alcohol use. She has a previous cholecystectomy. Since being admitted to the hospital and receiving hydration, her nausea has improved. She is eager to return home. - Review of Systems Comment: CONSTITUTIONAL: Denies any fever or chills. Denies recent weight gain. HEENT: Denies any trouble with vision, hearing or nosebleeds. No difficulty swallowing. LYMPHATIC: The patient denies any lumps and bumps around the neck. ENDOCRINE: Denies any thyroid disorders. Denies any blood sugar glucose intolerance. RESPIRATORY: Denies pneumonia. Denies any troubles with breathing or dyspnea on exertion. CARDIOVASCULAR: Denies any palpitations, or recent heart attacks. GASTROINTESTINAL: Her heartburn is resolved since surgery. She had nausea at this morning which is now improved. GENITOURINARY: Denies any blood in urine or increased urinary frequency. MUSCULOSKELETAL: Has occasional back pain, stiffness or joint arthritis. NEUROLOGIC: Denies any numbness or tingling along the distal extremities. She has history of seizure disorder. PSYCHIATRIC: Has depression. No suidical ideation. Denies any alcohol use. HEMATOLOGIC: Denies any abnormal bleeding or bruising. B Past Medical History Past Medical History: Asthma, GERD/Reflux, Hyperlipidemia Additional Past Medical History / Comment(s): hiatal hernia, constipation/ diarrhea, History of Any Multi-Drug Resistant Organisms: None Reported Past Surgical History: Back Surgery, Cholecystectomy Additional Past Surgical History / Comment(s): Kristopher fundoplasty, back surgery x 2, Repair of recurrent paraesophageal hiatal hernia repair 06/16/2016 Past Anesthesia/Blood Transfusion Reactions: No Reported Reaction Past Psychological History: Anxiety, Bipolar, Depression Smoking Status: Former smoker Past Alcohol Use History: None Reported Additional Past Alcohol Use History / Comment(s): quit smoking 2014, smoked for 2 yrs -1 PPD Past Drug Use History: Marijuana - Past Family History Mother Family Medical History: No Reported History Medications and Allergies Home Medications Medication Instructions Recorded Confirmed Type FLUoxetine HCL [PROzac] 20 mg PO HS 04/14/16 06/18/16 History QUEtiapine [SEROquel] 25 mg PO HS 04/14/16 06/18/16 History clonazePAM [KlonoPIN] 0.5 mg PO BID 04/14/16 06/18/16 History lamoTRIgine [LaMICtal] 400 mg PO HS 04/14/16 06/18/16 History Baclofen 10 mg PO TID 06/07/16 06/18/16 History Allergies Allergy/AdvReac Type Severity Reaction Status Date / Time cephalexin [From Keflex] Allergy Rash/Hives Verified 06/18/16 10:26 Iodinated Contrast Media - Allergy Rash/Hives Verified 06/18/16 10:26 Oral and [Iodinated Contrast Media - IV Dye] ketorolac [From Toradol] Allergy Rash/Hives Verified 06/18/16 10:26 Surgical - Exam Vital Signs Temp Pulse Resp BP Pulse Ox 98.4 F 91 20 132/82 96 06/18/16 06:10 06/18/16 06:10 06/18/16 06:10 06/18/16 06:10 06/18/16 06:10 GENERAL: Well developed and in no acute distress. Pleasant. HEENT: No sclera icterus. Extraocular movements grossly intact. Moist buccal mucosa. Head is atraumatic, normocephalic. Hears conversational speech. No nasal drainage. NECK: Supple without lymphadenopathy. No JV distention. CHEST: Non-labored respirations and equal bilateral excursions. CARDIOVASCULAR: Regular rate and rhythm. Palpable 2+ radial pulses. ABDOMEN: Soft, nondistended. Dermabond along incisions clean dry and intact. No peritonitis. Minimal nettie-incisional tenderness along the left upper quadrant. MUSCULOSKELETAL: No clubbing, cyanosis or edema. NEUROLOGIC: No focal or lateralizing signs. Cranial nerves II through XII grossly intact. PSYCH: Appropriate affect. Alert and oriented to person, place and time. Results - Labs 06/18/16 06:42 06/18/16 06:42 - Imaging Chest x-ray: report reviewed (No recurrent diaphragmatic hiatal hernia identified.), image reviewed Assessment and Plan (1) Elevated lipase Status: Acute (2) Intractable nausea and vomiting Status: Acute (3) Dehydration Status: Acute Plan: 1. She reports that her nausea and vomiting is resolved after IV fluid hydration. 2. She has elevated lipase for unknown reason. Will repeat. 3. Also will recheck her magnesium level. Low magnesium may exacerbate nausea. 4. Continue with IV fluid boluses. 5. Will also add scopolamine patch to address nausea. 6. Potential discharge pending complete resolution of nausea including improvement of her lipase and magnesium levels.
[2016-06-18 13:44] LABS: Magnesium 1.6 mg/dL (1.6-2.3)
[2016-06-18] MEDS ORDERED: HYDROcodone/APAP 15 ML SOLUTION PO PRN (13:51)
[2016-06-18] MEDS ORDERED: MAGNESIUM SULFATE-D5W PMX 1 GM in DEXTROSE/WATER 1 100ML.BAG IVPB STA (14:21)
[2016-06-18] MEDS: ONDANSETRON 4 MG/2 ML VIAL IVP PRN (14:32)
[2016-06-18] MEDS ORDERED: MAGNESIUM SULFATE-D5W PMX 1 GM in DEXTROSE/WATER 1 100ML.BAG IVPB SCH (15:15)
--- NOTE | 2016-06-18 15:29 | P.PN ---
Progress Note - Text Patient complains of epigastric abdominal pain. Lipase is coming down. Will obtain a CT of the abdomen and pelvis.
[2016-06-18 16:04] VITALS: BMI 25.8
[2016-06-18] MEDS: MAGNESIUM SULFATE-D5W PMX 1 GM in DEXTROSE/WATER 1 100ML.BAG IVPB SCH ×3 (16:16→18:48)
[2016-06-19] MEDS: ONDANSETRON 4 MG/2 ML VIAL IVP PRN ×3 (02:43→16:19)
[2016-06-19] MEDS: SODIUM CHLORIDE 0.9% 1,000 ML IV SCH ×2 (05:35→16:27)
[2016-06-19] MEDS: HYDROmorphone 1 MG/ML 1 ML SYRINGE IVP PRN ×3 (07:31→18:33)
[2016-06-19 08:08] LABS: ALT 210 U/L (9-52); AST 119 U/L (14-36); Alkaline Phosphatase 89 U/L (38-126); Anion Gap 9 mmol/L; Blood Urea Nitrogen 3 mg/dL (7-17); Calcium 8.4 mg/dL (8.4-10.2); Carbon Dioxide 19 mmol/L (22-30); Chloride 111 mmol/L (98-107); Glucose 74 mg/dL (74-99); Magnesium 1.9 mg/dL (1.6-2.3); Non-African American GFR(MDRD) >60 (>60 ml/min/1.73 sqM); Potassium 4.1 mmol/L (3.5-5.1); Sodium 139 mmol/L (137-145); Total Bilirubin 1.1 mg/dL (0.2-1.3); Total Protein 6.1 g/dL (6.3-8.2); Triglycerides 112 mg/dL (<150)
[2016-06-19] MEDS: MAGNESIUM SULFATE-D5W PMX 1 GM in DEXTROSE/WATER 1 100ML.BAG IVPB SCH ×2 (09:20→10:35)
[2016-06-19] MEDS ORDERED: PANTOPRAZOLE 40 MG/10 ML VIAL IVP SCH (12:00)
--- NOTE | 2016-06-19 12:00 | P.PN ---
Subjective A 31-year-old female being seen on rounds this morning. Patient states less nausea this morning after changing the pain medication. Patient states that she was given [place] last evening felt nauseated has been retching and since the pain medicine has been switched to IV dilaudid has been effective for pain control with no nausea sensation patient states she continues to feel a bloating sensation to the abdominal wall less surgical discomfort. Patient is postop repair of an incarcerated recurrent diaphragmatic hiatus hernia done on June 16 patient was discharged on the and reported experiencing at home nausea sensation. She did try using Zofran that she had at home and it did not take away the nausea. Patient stated she also was having abdominal discomfort. Patient return to the emergency room to be evaluated for the above-mentioned symptoms. The lipase was elevated 1999. Patient denied any alcohol use. Patient has a history of a prior cholecystectomy. Patient was placed on bowel rest with IV hydration the lipase this morning is down to 286. Additionally the amylase is down to 119 on admission 242 ALT this morning 210. On admission was 260. On admission the magnesium level was 1.1 replacement has been given its now up to 1.9 total bilirubin 1.6 on admission this morning is 1.9 Objective - Vital Signs Vital signs: Vital Signs Temp 97.8 F 06/19/16 07:00 Pulse 90 06/19/16 07:25 Resp 18 06/19/16 07:00 BP 120/80 06/19/16 09:28 Pulse Ox 96 06/19/16 07:00 Intake & Output 06/18/16 06/19/16 06/19/16 18:59 06:59 18:59 Intake Total 120 230 Balance 120 230 Weight 77.111 kg Intake: Oral 120 230 Other: # Voids 1 1 - Exam GENERAL APPEARANCE: 31-year-old female patient is alert, oriented, 3 reports a bloating sensation to the abdominal wall less sensation of nausea no active emesis no stool passing gas in no acute distress. VITAL SIGNS: Reviewed HEENT: Head is normocephalic and atraumatic. Pupils are equal and reactive. The nares are patent. Oropharynx is clear without lesions. NECK: Supple without lymphadenopathy. Traches midline. HEART: S1, S2. Regular rate and rhythm. No murmur noted denying chest pain LUNGS: No crackles or wheezes are heard. Sats on room air 96% bilateral adequate air movement ABDOMEN: Soft, nontender, nondistended with good bowel sounds. Dermabond on incisions clean and dry. Abdomen slightly bloated states passing gas no stool states urinating no difficulty No peritoneal signs. No palpable organomegaly or masses. EXTREMITIES: Normal skin color and turgor. No cyanosis, rash, ulceration, clubbing or edema. Radial pedal pulses are 2/4 bilaterally. NEUROLOGICAL: No focal deficits. Strength and sensation are grossly intact. - Labs CBC & Chem 7: 06/18/16 06:42 06/19/16 06:34 Labs: Abnormal Lab Results - Last 24 Hours (Table) 06/18/16 06/19/16 Range/Units 13:21 06:34 Chloride 111 H (98-107) mmol/L Carbon Dioxide 19 L (22-30) mmol/L BUN 3 L (7-17) mg/dL AST 119 H (14-36) U/L ALT 210 H (9-52) U/L Total Protein 6.1 L (6.3-8.2) g/dL Albumin 3.3 L (3.5-5.0) g/dL Lipase 534 H (23-300) U/L Assessment and Plan Plan: Impression Present on admission nausea vomiting with elevated lipase unclear etiology Present on admission intractable nausea vomiting acute Present on admission acute clinical dehydration suspect due to poor oral intake Present on admission hypo-magnesium Status post repair of an incarcerated recurrent diaphragmatic hiatus hernia done on June 16 Plan Continue IV hydration as ordered CAT scan without contrast abdomen pelvis follow up on results Repeat the labs in the morning Pain control Continue the tamika clear liquid diet DVT and GI prophylaxis Further recommendations pending The above dictated assessment and findings were discussed with dr Lucian Garrett and the plan of care have been dictated as directed. Molly Moyer nurse practitioner acting as a scribe for Lucian
--- NOTE | 2016-06-19 12:47 | CT ---
EXAMINATION TYPE: CT abdomen pelvis wo con DATE OF EXAM: 06/19/2016 12:32 PM COMPARISON: NONE HISTORY: Patient complains of new onset severe abdominal pain post josep REfundoplication. CT DLP: 1097 mGycm FINDINGS: LUNG BASES: Interval development of basilar atelectasis and small pleural effusions. LIVER/GB: The gallbladder is unremarkable. No space-occupying hepatic lesion. PANCREAS: No pancreatic mass identified. No inflammatory process seen. SPLEEN: No evidence for splenomegaly. No intrasplenic lesions seen. ADRENALS: No adrenal nodules identified. No evidence for thickening. KIDNEYS: No evidence for renal mass. No nephrolithiasis. No hydronephrosis. BOWEL: Status post changes of Josep fundoplication. There is elongated density adjacent to the esoph candice at the level of the GE junction which measures 2.0 x 3.7 cm and demonstrates Hounsfield unit ran ging from approximately 13-30. This may reflect a small hematoma or an area of atelectasis. There is extensive wall thickening noted to involve the gastric fundus which may be related to postoperative c hange however edema from other etiologies not excluded. Correlate clinically. Colonic wall thickening may be related to poor distention. Lymph nodes: No evidence for adenopathy greater than 1 cm. Abdominal aorta: Atheromatous changes seen. No evidence for aneurysm. Genital organs: IUD is noted to be in place. Other: There is a small amount of pneumoperitoneum. Small amount of air is identified within the part ially imaged mediastinum. There is also evidence of chest wall air and air extending into the right s ubcutaneous flank region. Mild left-sided chest wall air is also noted. Free fluid is seen within the pelvis. IMPRESSION: 1. SMALL AMOUNT OF THE POSTOPERATIVE PNEUMOPERITONEUM AND PNEUMOMEDIASTINUM. CHEST WALL AIR IS NOTED. 2. WALL THICKENING INVOLVING THE GASTRIC FUNDIC SELLA MAY BE POSTOPERATIVE IN NATURE HOWEVER EDEMA FR OM OTHER ETIOLOGIES IS NOT EXCLUDED. 3. There is elongated density adjacent to the esophagus at the level of the GE junction which measure s 2.0 x 3.7 cm and demonstrates Hounsfield unit ranging from approximately 13-30. This may reflect a small hematoma or an area of atelectasis. 4. Basilar atelectasis and small pleural effusions. There is also evidence of fluid within the pelvis .
[2016-06-19] MEDS ORDERED: traMADol 50 MG TAB PO STA (14:10)
--- NOTE | 2016-06-19 14:47 | P.DS ---
Providers Date of admission: 06/18/16 09:37 Expected date of discharge: 06/19/16 Attending physician: Andra Epstein Primary care physician: Elaina Dolan - Discharge Diagnosis(es) (1) Elevated lipase Current Visit: Yes Status: Acute (2) Intractable nausea and vomiting Current Visit: Yes Status: Acute (3) Dehydration Current Visit: Yes Status: Acute (4) Pancreatitis, acute Current Visit: Yes Status: Acute Hospital Course: The patient is a 31-year-old female who is status post laparoscopic repair of recurrent diaphragmatic hiatal paraesophageal hernia on 06/16/2016. She had done well postoperatively however upon being at home she reported having intractable nausea and vomiting. She then presented back to the emergency room whereby her enzyme levels were consistent with elevated lipase and pancreatitis. Upon close observation, she demonstrated intolerance to Excello elixir although she was able to tolerate this medication on previous surgeries. Upon adjusting her pain medication including starting tramadol, she was able to tolerate her pain meds. Her nausea and vomiting had resolved. Her hypo- magnesia was corrected. She was well hydrated. She was tolerating full Kristopher liquid diet. Discharge instructions were reviewed and she demonstrated understanding. Repeat chemistries demonstrated resolution of pancreatic lipase enzymes. Abdominal pain also improved. CT of the abdomen and pelvis did not demonstrate any fulminating pancreatitis. Patient was stable for discharge. Pertinent Studies: CT of the abdomen and pelvis reviewed demonstrating appropriate postoperative changes along the fundus of the stomach without recurrence of paraesophageal hiatal hernia. No evidence of fulminating pancreatitis. Procedures: None. Patient Condition at Discharge: Good Plan - Discharge Summary New Discharge Prescriptions: Magnesium Oxide [Magox 400] 400 mg PO DAILY #60 tablet Scopolamine 1.5MG/72Hr Patch [TransDerm Scop] 1 patch TRANSDERM Q72H #2 patch traMADol HCL [Ultram] 100 mg PO Q6HR PRN #30 tab PRN Reason: Pain Discharge Medication List FLUoxetine HCL [PROzac] 20 mg PO HS 04/14/16 [History] QUEtiapine [SEROquel] 25 mg PO HS 04/14/16 [History] clonazePAM [KlonoPIN] 0.5 mg PO BID 04/14/16 [History] lamoTRIgine [LaMICtal] 400 mg PO HS 04/14/16 [History] Baclofen 10 mg PO TID 06/07/16 [History] HYDROcodone/APAP [Excello Elixir 7.5-325Mg/15Ml] 15 ml PO Q6H PRN #0 solution [Rx] Magnesium Oxide [Magox 400] 400 mg PO DAILY #60 tablet 06/18/16 [Rx] Scopolamine 1.5MG/72Hr Patch [TransDerm Scop] 1 patch TRANSDERM Q72H #2 patch [Rx] traMADol HCL [Ultram] 100 mg PO Q6HR PRN #30 tab 06/19/16 [Rx] Follow up Appointment(s)/Referral(s): Elaina Dolan MD [Primary Care Provider] - 1-2 days Patient Instructions/Handouts: *Surgery [facility] - Scopalamine Patch Instructions, Pancreatitis (DC), Hypomagnesemia (GEN) Activity/Diet/Wound Care/Special Instructions: Please continue with liquid diet. Stay well-hydrated with fluids over 64 ounces daily. No lifting over 4 pounds in 4 weeks. Discharge Disposition: HOME SELF-CARE
[2016-06-19] MEDS: BACLOFEN 10 MG TAB PO SCH ×3 (18:16→21:45)
[2016-06-19] MEDS ORDERED: DEXAMETHASONE SOD PHOSPHATE 10 MG/ML 1 ML VIAL IV STA (18:32)
--- NOTE | 2016-06-19 18:34 | P.PN ---
Progress Note - Text I was notified by the patient's nurse that she started to retch with nausea and vomiting after tramadol. Overall patient has intolerance to narcotics including oral [place] and oral tramadol. She actually does well with IV Dilaudid. Her home medications have been restarted. I was at bedside evaluating her swallow including tolerance of her home pain meds. We will discontinue all narcotics with exception of IV Dilaudid and start acetaminophen as well as Decadron for nausea. We'll reassess for discharge later today or tomorrow.
[2016-06-19] MEDS ORDERED: ACETAMINOPHEN TAB 325 MG TAB PO PRN (18:43)
[2016-06-19] MEDS: clonazePAM 0.5 MG TAB PO SCH ×3 (19:46→21:47)
[2016-06-19] MEDS ORDERED: FLUoxetine HCL 20 MG CAP PO SCH (21:00)
[2016-06-19] MEDS ORDERED: lamoTRIgine 100 MG TAB PO SCH (21:00)
[2016-06-19] MEDS ORDERED: QUEtiapine 25 MG TAB PO SCH (21:00)
[2016-06-20 07:25] LABS: Basophils % (A) 0 %; CH 28.9; CHCM 33.6; Eosinophils % (A) 0 %; HDW 2.62; HGB 13.3 gm/dL (11.4-16.0); Luc # (Auto) 0.02; Luc % (Auto) 0; Lymphocytes # (A) 0.6 k/uL (1.0-4.8); Lymphocytes % (A) 8 %; MCH 28.6 pg (25.0-35.0); MCHC 33.1 g/dL (31.0-37.0); MCV 86.4 fL (80.0-100.0); Mean Platelet Volume 7.6; Monocytes # (A) 0.1 k/uL (0-1.0); Monocytes % (A) 2 %; Neutrophils # (A) 5.8 k/uL (1.3-7.7); Neutrophils % (A) 89 %; RBC 4.63 m/uL (3.80-5.40); RDW 12.4 % (11.5-15.5); WBC 6.5 k/uL (3.8-10.6); WBC (Perox) 6.59
[2016-06-20 07:36] LABS: ALT 152 U/L (9-52); AST 63 U/L (14-36); Alkaline Phosphatase 99 U/L (38-126); Amylase <30 U/L (30-110); Anion Gap 12 mmol/L; Blood Urea Nitrogen 5 mg/dL (7-17); Calcium 8.8 mg/dL (8.4-10.2); Carbon Dioxide 17 mmol/L (22-30); Chloride 111 mmol/L (98-107); Glucose 111 mg/dL (74-99); Non-African American GFR(MDRD) >60 (>60 ml/min/1.73 sqM); Potassium 4.6 mmol/L (3.5-5.1); Sodium 140 mmol/L (137-145); Total Protein 6.1 g/dL (6.3-8.2)
[2016-06-20] MEDS: SODIUM CHLORIDE 0.9% 1,000 ML IV SCH ×3 (08:02→09:23)
[2016-06-20] MEDS: BACLOFEN 10 MG TAB PO SCH (08:09)
--- NOTE | 2016-06-20 08:52 | P.PN ---
<Molly Moyer Daxa - Last Filed: 06/20/16 08:48> Subjective Patient is being seen on rounds this morning is sitting up in bed states feels "much better did not take anything for pain last night slept through the night. Patient reports being hungry there is no nausea vomiting. Patient did have an episode yesterday of retching with a nausea sensation after taking Ultram. And Mccloud Patient cannot tolerate narcotics including oral Mccloud or oral Ultram. Patient did receive IV Dilaudid. Which was effective for pain control. Patient does states she's anxious to be discharged this morning states she's been up ambulating in the palafox feeling much better off of the narcotics Addition the patient reports abdominal pain significantly improved Objective - Vital Signs Vital signs: Vital Signs Temp 97.1 F L 06/20/16 00:00 Pulse 50 L 06/20/16 00:00 Resp 14 06/20/16 00:00 BP 115/56 06/20/16 00:00 Pulse Ox 98 06/20/16 00:00 Intake & Output 06/19/16 06/20/16 06/20/16 18:59 06:59 18:59 Intake Total 470 250 Balance 470 250 Intake: Oral 470 250 Other: # Voids 2 1 - Exam Physical exam Pleasant cooperative 31-year-old female sitting up in bed denying abdominal pain this been no further nausea vomiting Lungs essentially clear on room air sats 95% Heart S1-S2 audible and regular Abdomen soft surgical sites no redness no drainage active bowel tones nontender not distended urinating no difficulty Extremities no edema - Labs CBC & Chem 7: 06/20/16 06:54 06/20/16 06:54 Labs: Abnormal Lab Results - Last 24 Hours (Table) 06/20/16 06/20/16 Range/Units 06:54 06:54 Lymphocytes # 0.6 L (1.0-4.8) k/uL Chloride 111 H (98-107) mmol/L Carbon Dioxide 17 L (22-30) mmol/L BUN 5 L (7-17) mg/dL Glucose 111 H (74-99) mg/dL AST 63 H (14-36) U/L ALT 152 H (9-52) U/L Total Protein 6.1 L (6.3-8.2) g/dL Albumin 3.2 L (3.5-5.0) g/dL Amylase <30 L (30-110) U/L Assessment and Plan Plan: Impression Present on admission nausea vomiting with elevated lipase unclear etiology Present on admission intractable nausea vomiting acute Present on admission acute clinical dehydration suspect due to poor oral intake Present on admission hypo-magnesium Status post repair of an incarcerated recurrent diaphragmatic hiatus hernia done on June 16 Intolerance to narcotics including oral nor called and Ultram causes nausea with retching and vomiting Plan Prepped for discharge this morning follow-up with Dr. Epstein the office Plain Tylenol for pain control Patient aware the plan of care verbalizes an understanding The above dictated assessment and findings were discussed with dr Epstein Impression and the plan of care have been dictated as directed. Molly Moyer nurse practitioner acting as a scribe for Lucian <Andra Epstein - Last Filed: 06/20/16 12:52> Objective - Vital Signs Vital signs: Vital Signs Temp 97.3 F L 06/20/16 08:15 Pulse 75 06/20/16 08:15 Resp 20 06/20/16 08:15 BP 126/79 06/20/16 08:15 Pulse Ox 96 06/20/16 08:15 Intake & Output 06/19/16 06/20/16 06/20/16 18:59 06:59 18:59 Intake Total 470 250 Balance 470 250 Intake: Oral 470 250 Other: # Voids 2 1 - Labs CBC & Chem 7: 06/20/16 06:54 06/20/16 06:54 Labs: Abnormal Lab Results - Last 24 Hours (Table) 06/20/16 06/20/16 Range/Units 06:54 06:54 Lymphocytes # 0.6 L (1.0-4.8) k/uL Chloride 111 H (98-107) mmol/L Carbon Dioxide 17 L (22-30) mmol/L BUN 5 L (7-17) mg/dL Glucose 111 H (74-99) mg/dL AST 63 H (14-36) U/L ALT 152 H (9-52) U/L Total Protein 6.1 L (6.3-8.2) g/dL Albumin 3.2 L (3.5-5.0) g/dL Amylase <30 L (30-110) U/L Assessment and Plan (1) Elevated lipase Status: Acute (2) Intractable nausea and vomiting Status: Acute (3) Dehydration Status: Acute (4) Pancreatitis, acute Status: Acute (5) Hypomagnesemia Status: Acute (6) Intolerance of drug Status: Acute Plan: Patient doing much better with complete avoidance of narcotics. Tramadol and Mccloud added to list for N/V under allergy list.
[2016-06-20 09:26] VITALS: BP 126/79; PULSE 75; RESP 20; TEMP 97.3
== END 2016-06-20 09:05 | disposition home or self-care (01) | DRG 391 ==
LOC: EC 05:38 → 6PED 09:37
PROVIDERS: ADMIT Surgery Plastic and Reconstructive Surgery; ATTEND Surgery Plastic and Reconstructive Surgery
DX: R11.2 Nausea with vomiting, unspecified (principal); K85.90 Acute pancreatitis without necrosis or infection, unspecified; E83.42 Hypomagnesemia; E86.0 Dehydration; T39.1X5A Adverse effect of 4-Aminophenol derivatives, initial encounter; J45.909 Unspecified asthma, uncomplicated; K21.9 Gastro-esophageal reflux disease without esophagitis; E78.5 Hyperlipidemia, unspecified; K44.9 Diaphragmatic hernia without obstruction or gangrene; Z90.49 Acquired absence of other specified parts of digestive tract; F32.9 Major depressive disorder, single episode, unspecified; F41.9 Anxiety disorder, unspecified; Z79.899 Other long term (current) drug therapy; Z87.891 Personal history of nicotine dependence; Y92.009 Unspecified place in unspecified non-institutional (private) residence as the place of occurrence of the external cause
CPT/HCPCS: 36415; 71020; 74176; 80053; 81003; 81025; 82150; 83605; 83690; 83735; 84425; 84478; 85025; 96361; 96374; 96375; 99285

== ENCOUNTER 2017-01-03 07:35 | Day surgery (SDC) | payer OTHER ==
[2017-01-02 08:50] VITALS: BMI 25.8
[~2017-01-03 07:35] MED LIST changes: -ACETAMINOPHEN IV (For NPO) 1,000 MG in EMPTY BAG 1 BAG IVPB ONE; -CLINDAMYCIN 900 MG in DEXTROSE 5% IN WATER 50 ML IVPB ONE; -DEXAMETHASONE SOD PHOSPHATE 10 MG/ML 1 ML VIAL IV ONE; -HEPARIN SODIUM,PORCINE 5,000 UNIT/ML 1 ML VIAL SQ ONE; -MIDAZOLAM 2 MG/2 ML VIAL IV PRN; -ONDANSETRON 4 MG/2 ML VIAL IVP ONE; -SCOPOLAMINE 1.5MG/72HR PATCH TRANSDERM ONE
[2017-01-03 08:00] VITALS: RESP 16; TEMP 97.8
[2017-01-03] MEDS: LIDOCAINE 1% 20 ML VIAL (10MG/ML) FOR IV START INTRADERMA PRN ×2 (08:00→10:31)
--- NOTE | 2017-01-03 08:03 | P.GSHP ---
History of Present Illness H&P Date: 01/03/17 CHIEF COMPLAINT: GERD HISTORY OF PRESENT ILLNESS: The patient is a 31-year-old female who presents reports gastroesophageal reflux disease. Upper endoscopy was offered for further evaluation and management. PAST MEDICAL HISTORY: Please see list. PAST SURGICAL HISTORY: Please see list. MEDICATIONS: Please see list. ALLERGIES: Please see list. SOCIAL HISTORY: No illicit drug use FAMILY HISTORY: No reports of Crohn disease or ulcerative colitis. REVIEW OF ORGAN SYSTEMS: CONSTITUTIONAL: No reports of fevers or chills. GI: Denies any blood in stools or constipation. PHYSICAL EXAM: VITAL SIGNS: Stable GENERAL: Well-developed and pleasant in no acute distress. HEENT: No scleral icterus. Extraocular movements grossly intact. Moist buccal mucosa. NECK: Supple without lymphadenopathy. CHEST: Unlabored respirations. Equal bilateral excursions. CARDIOVASCULAR: Regular rate and rhythm. Distal 2+ pulses. ABDOMEN: Soft, nondistended. MUSCULOSKELETAL: No clubbing, cyanosis, or edema. ASSESSMENT: 1. Gastroesophageal reflux disease PLAN: 1. Recommend proceeding with an upper endoscopy Past Medical History Past Medical History: Asthma, GERD/Reflux, Hyperlipidemia Additional Past Medical History / Comment(s): constipation/diarrhea, History of Any Multi-Drug Resistant Organisms: None Reported Past Surgical History: Back Surgery, Cholecystectomy Additional Past Surgical History / Comment(s): Kristopher fundoplasty, back surgery x 2, Repair of recurrent paraesophageal hiatal hernia repair 06/16/2016, IUD INSERTION Past Anesthesia/Blood Transfusion Reactions: No Reported Reaction Smoking Status: Former smoker - Past Family History Mother Family Medical History: No Reported History Medications and Allergies Home Medications Medication Instructions Recorded Confirmed Type FLUoxetine HCL [PROzac] 20 mg PO HS 04/14/16 01/02/17 History clonazePAM [KlonoPIN] 0.5 mg PO HS 04/14/16 01/02/17 History Baclofen 10 mg PO BID 06/07/16 01/02/17 History Aclidinium Moffat [Tudorza 1 puff PO BID 01/02/17 01/02/17 History Pressair] Albuterol Inhaler [Ventolin Hfa 1 - 2 puff INHALATION BID 01/02/17 01/02/17 History Inhaler] Beclomethasone Dip 80 Mcg/Puff 2 puff INHALATION BID 01/02/17 01/02/17 History [Qvar] QUEtiapine [SEROquel] 100 mg PO HS 01/02/17 01/02/17 History Salmeterol Xinafoate [Serevent 50 mcg IH DAILY 01/02/17 01/02/17 History Diskus] Allergies Allergy/AdvReac Type Severity Reaction Status Date / Time cephalexin [From Keflex] Allergy Rash/Hives Verified 01/03/17 07:53 Iodinated Contrast- Oral and Allergy Rash/Hives Verified 01/03/17 07:53 IV Dye [Iodinated Contrast Media - IV Dye] ketorolac [From Toradol] Allergy Rash/Hives Verified 01/03/17 07:53 tramadol [From Ultram] AdvReac Intermediate Abdominal Verified 01/03/17 07:53 Pain acetaminophen [From [place]] AdvReac Nausea & Verified 01/03/17 07:53 Vomiting hydrocodone [From [place]] AdvReac Nausea & Verified 01/03/17 07:53 Vomiting Surgical - Exam Vital Signs Temp Pulse Resp BP Pulse Ox 97.8 F 76 16 103/69 96 01/03/17 07:58 01/03/17 07:58 01/03/17 07:58 01/03/17 07:58 01/03/17 07:58
[2017-01-03] MEDS ORDERED: GLYCOPYRROLATE 0.2 MG/ML 2 ML VIAL ONE (08:04)
[2017-01-03] MEDS ORDERED: LIDOCAINE 1% INJ 10MG/ML (20 ML MDV) ONE (08:04)
[2017-01-03] MEDS ORDERED: PROPOFOL 10 MG/ML 20 ML VIAL IV ONE (08:04)
--- NOTE | 2017-01-03 08:17 | P.PCN ---
Date of Procedure: 01/03/17 Preoperative Diagnosis: Postoperative Diagnosis: Procedure(s) Performed: Implants: Indications for Procedure: Operative Findings: Description of Procedure: PREOPERATIVE DIAGNOSIS: Gastroesophageal reflux disease. History of Kristopher fundoplasty revision. Intractable nausea. Epigastric pain. POSTOPERATIVE DIAGNOSIS: Gastroesophageal reflux disease. History of Kristopher fundoplasty revision. Intractable nausea. Epigastric pain. OPERATION: Esophagogastroduodenoscopy with biopsies along antrum. SURGEON: Andra Epstein MD ANESTHESIA: MAC. INDICATIONS: The patient is a 31-year-old female who presents with a history of reflux disease. Benefits and risks of the procedure were described. Informed consent was obtained. DESCRIPTION: The patient was brought into the endoscopy suite and laid in the left lateral decubitus position. An Olympus gastroscope was passed along the posterior oropharynx down to the distal esophagus where the squamocolumnar junction was encountered at 39 cm from the incisors. The stomach was entered and no bile reflux was found. Additional findings are listed below. Biopsies with cold forceps were obtained of the antrum. The first through third portion of the duodenum was examined and unremarkable. Retroflexion of the scope confirmed Hill grade 1 lower esophageal valve with an intact Kristopher fundoplasty without recurrence of her hiatal hernia. The squamocolumnar junction demostrated chronic LA grade A erosive esophagitis. The stomach was desufflated. The patient tolerated the procedure well. FINDINGS: Squamocolumnar junction 39 cm from the incisors. Diaphragmatic hiatus at 39 cm. No recurrent diaphragmatic hiatal hernia. Hill grade 1 lower esophageal valve. LA grade A erosive esophagitis. No active duodenitis. Gastritis, superficial. RECOMMENDATIONS: Further recommendations pending results of pathology report. Upper endoscopy as needed. Plan - Discharge Summary New Discharge Prescriptions: No Action clonazePAM [KlonoPIN] 0.5 mg PO HS FLUoxetine HCL [PROzac] 20 mg PO HS Baclofen 10 mg PO BID Albuterol Inhaler [Ventolin Hfa Inhaler] 1 - 2 puff INHALATION BID Aclidinium Gray [Tudorza Pressair] 1 puff PO BID QUEtiapine [SEROquel] 100 mg PO HS Salmeterol Xinafoate [Serevent Diskus] 50 mcg IH DAILY Beclomethasone Dip 80 Mcg/Puff [Qvar] 2 puff INHALATION BID Discharge Medication List FLUoxetine HCL [PROzac] 20 mg PO HS 11/18/16 [History] clonazePAM [KlonoPIN] 0.5 mg PO HS 04/14/16 [History] Baclofen 10 mg PO BID 06/07/16 [History] Aclidinium Gray [Tudorza Pressair] 1 puff PO BID 01/02/17 [History] Albuterol Inhaler [Ventolin Hfa Inhaler] 1 - 2 puff INHALATION BID 01/02/17 [ History] Beclomethasone Dip 80 Mcg/Puff [Qvar] 2 puff INHALATION BID 01/02/17 [History] QUEtiapine [SEROquel] 100 mg PO HS 01/02/17 [History] Salmeterol Xinafoate [Serevent Diskus] 50 mcg IH DAILY 01/02/17 [History]
[2017-01-03 08:58] LABS: Anion Gap 6 mmol/L; Blood Urea Nitrogen 11 mg/dL (7-17); Calcium 8.9 mg/dL (8.4-10.2); Carbon Dioxide 23 mmol/L (22-30); Chloride 110 mmol/L (98-107); Glucose 85 mg/dL (74-99); Magnesium 1.6 mg/dL (1.6-2.3); Non-African American GFR(MDRD) >60 (>60 ml/min/1.73 sqM); Potassium 3.9 mmol/L (3.5-5.1); Sodium 139 mmol/L (137-145)
[2017-01-03] MEDS ORDERED: NALOXONE 0.4 MG/ML 1 ML VIAL IV PRN (09:55)
[2017-01-03] MEDS ORDERED: LORazepam 2 MG/ML SYRINGE IV PRN (09:55)
[2017-01-03] MEDS ORDERED: ONDANSETRON 4 MG/2 ML VIAL IVP PRN (09:55)
--- NOTE | 2017-01-03 09:55 | P.PN ---
Progress Note - Text Patient returned to the PACU after being discharged. She reports acute abdominal cramps. Recommend observation with repeat evaluation after IV fluid boluses.
[2017-01-03] MEDS ORDERED: SODIUM CHLORIDE 0.9% 1,000 ML IV SCH ×2 (10:00→10:01)
[2017-01-03] MEDS ORDERED: TRIMETHOBENZAMIDE 100 MG/ML 2 ML VIAL IM PRN (10:00)
--- NOTE | 2017-01-03 10:51 | XR ---
EXAMINATION TYPE: XR abdomen 2V DATE OF EXAM: 01/03/2017 CLINICAL DATA: 31-year-old female with abdominal pain after EGD. Two prior hiatal hernia surgeries, [facility] COMPARISON: 06/17/2016 FINDINGS: Lung bases are clear. No evidence for free intraperitoneal air. Prominent air-filled bowel loops project below the right hemidiaphragm. Prominent air-filled central and peripheral bowel loops are noted but without differential air-fluid levels. Surgical clips relating to cholecystectomy and within the left upper quadrant. IUD is present. IMPRESSION: 1. Air-filled central and peripheral small bowel loops could relate to recent procedure or generalize d ileus. 2.No evidence of bowel obstruction or free intraperitoneal air.
[2017-01-03 14:20] VITALS: BP 104/64; PULSE 74
--- NOTE | 2017-01-03 18:21 | P.PN ---
Progress Note - Text I was notified by the patient's nurse that her abdominal pain had completely resolved especially after having IV fluid boluses. She was able to pass flatus. She had a bowel movement. Patient was discharged.
[2017-01-03] MEDS ORDERED: TIOTROPIUM 18 MCG/PUFF INHALER INHALATION SCH (20:00)
[2017-01-03] MEDS ORDERED: BECLOMETHASONE DIP 80 MCG/PUFF INHALER INHALATION SCH (20:00)
[2017-01-03] MEDS ORDERED: clonazePAM 0.5 MG TAB PO SCH (21:00)
[2017-01-03] MEDS ORDERED: FLUoxetine HCL 20 MG CAP PO SCH (21:00)
[2017-01-03] MEDS ORDERED: BACLOFEN 10 MG TAB PO SCH (21:00)
[2017-01-04] MEDS ORDERED: PANTOPRAZOLE 40 MG/10 ML VIAL IV SCH (09:00)
== END 2017-01-03 17:22 | disposition home health service (06) ==
LOC: ORWHC2ENDO 07:35 → 6PED 09:00 → ORWHC2ENDO 09:08
PROVIDERS: ATTEND Surgery Plastic and Reconstructive Surgery
DX: K22.10 Ulcer of esophagus without bleeding (principal); K29.50 Unspecified chronic gastritis without bleeding; K56.2 Volvulus; J45.909 Unspecified asthma, uncomplicated; Z87.891 Personal history of nicotine dependence; Z79.899 Other long term (current) drug therapy
CPT/HCPCS: 81025; 88305; 80048; 83735; 88342; 74020; 43239; J2060; J2405; J2001; J2704

== ENCOUNTER 2017-10-05 17:29 | Emergency (ER) | payer OTHER ==
[2017-10-05 17:45] VITALS: RESP 18
[2017-10-05] MEDS ORDERED: SODIUM CHLORIDE 0.9% 1,000 ML IV ONE (18:13)
[2017-10-05 18:29] LABS: Basophils % (A) 0 %; Eosinophils # (A) 0.1 k/uL (0-0.7); Eosinophils % (A) 2 %; HCT 38.4 % (34.0-46.0); HGB 12.8 gm/dL (11.4-16.0); Lymphocytes # (A) 1.6 k/uL (1.0-4.8); Lymphocytes % (A) 21 %; MCH 28.8 pg (25.0-35.0); MCHC 33.3 g/dL (31.0-37.0); MCV 86.6 fL (80.0-100.0); Mean Platelet Volume 7.7; Monocytes # (A) 0.3 k/uL (0-1.0); Monocytes % (A) 4 %; Neutrophils # (A) 5.4 k/uL (1.3-7.7); Neutrophils % (A) 72 %; Platelet Count 210 k/uL (150-450); RBC 4.43 m/uL (3.80-5.40); RDW 13.3 % (11.5-15.5); WBC 7.5 k/uL (3.8-10.6)
[2017-10-05 18:37] LABS: ALT 67 U/L (9-52); AST 64 U/L (14-36); Albumin 4.5 g/dL (3.5-5.0); Alkaline Phosphatase 86 U/L (38-126); Amylase <30 U/L (30-110); Anion Gap 13 mmol/L; Blood Urea Nitrogen 11 mg/dL (7-17); Carbon Dioxide 25 mmol/L (22-30); Chloride 103 mmol/L (98-107); Glucose 83 mg/dL (74-99); Lipase 62 U/L (23-300); Potassium 4.2 mmol/L (3.5-5.1); Sodium 141 mmol/L (137-145); Total Bilirubin 0.9 mg/dL (0.2-1.3); Total Protein 7.3 g/dL (6.3-8.2)
[2017-10-05 18:40] LABS: Amorphous Sediment,Urine Occasional /hpf; Appearance,Urine Cloudy (Clear); Bacteria,Urine Rare /hpf; Bilirubin,Urine 1+ (Negative); Blood,Urine Negative (Negative); Color,Urine Yellow; Glucose,Urine (UA) Negative (Negative); Hyaline Casts,Urine 3 /lpf (0-2); Ketones,Urine 3+ (Negative); Leukocyte Esterase,Urine Negative (Negative); Mucus,Urine Many /hpf; Nitrite,Urine Negative (Negative); Protein,Urine 1+ (Negative); RBC,Urine 2 /hpf (0-5); Specific Gravity,Urine 1.026 (1.001-1.035); Squamous Epithelial Cell,Urine 6 /hpf (0-4); WBC,Urine 2 /hpf (0-5)
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
[2017-10-05 19:22] LABS: Amphetamine Screen,Urine Not Detected (NotDetected); Barbiturate Screen,Urine Not Detected (NotDetected); Benzodiazepines Screen,Urine Not Detected (NotDetected); Cocaine Screen,Urine Not Detected (NotDetected); Methadone Screen, Urine Not Detected (NotDetected); Opiate Screen,Urine Not Detected (NotDetected); Oxycodone Screen, Urine Not Detected (NotDetected); Phencyclidine Screen,Urine Not Detected (NotDetected); Tricyclic Antidepressant,Urine Not Detected (NotDetected); Urn Cannabinoid Scrn Detected (NotDetected)
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
[2017-10-05 21:13] VITALS: BP 113/79; PULSE 77; TEMP 97
== END 2017-10-05 21:13 | disposition home or self-care (01) ==
LOC: EC 17:29
DX: R41.3 Other amnesia (principal); T50.905A Adverse effect of unspecified drugs, medicaments and biological substances, initial encounter; J45.909 Unspecified asthma, uncomplicated; F31.9 Bipolar disorder, unspecified; Z87.891 Personal history of nicotine dependence; Z79.51 Long term (current) use of inhaled steroids; Z79.82 Long term (current) use of aspirin; Z79.899 Other long term (current) drug therapy; Z88.1 Allergy status to other antibiotic agents; Z91.041 Radiographic dye allergy status; Z88.6 Allergy status to analgesic agent; Z88.5 Allergy status to narcotic agent
CPT/HCPCS: 36415; 70450; 80053; 80306; 81001; 81025; 82150; 83690; 85025; 96360; 99285

== ENCOUNTER 2019-01-01 09:39 | Day surgery (SDC) | payer OTHER ==
[2018-12-30 09:43] VITALS: BMI 21.6
[~2019-01-01 09:39] MED LIST changes: +LIDOCAINE 1% 20 ML VIAL (10MG/ML) FOR IV START INTRADERMA PRN
[2019-01-01 10:10] VITALS: RESP 16; TEMP 98
[2019-01-01] MEDS ORDERED: DEXAMETHASONE SOD PHOSPHATE 10 MG/ML 1 ML VIAL IV ONE (10:16)
[2019-01-01] MEDS ORDERED: SCOPOLAMINE 1.5MG/72HR PATCH TRANSDERM ONE (10:16)
[2019-01-01] MEDS ORDERED: ONDANSETRON 4 MG/2 ML VIAL IVP ONE (10:16)
[2019-01-01] MEDS ORDERED: LIDOCAINE 1% INJ 10MG/ML (20 ML MDV) ONE (10:50)
[2019-01-01] MEDS ORDERED: PROPOFOL 10 MG/ML 20 ML VIAL IV ONE (10:50)
--- NOTE | 2019-01-01 10:59 | P.GSHP ---
History of Present Illness H&P Date: 01/01/19 Chief Complaint: Change in bowel habits 33-year-old female here for colonoscopy. She has not had one previously. Complaints of bloating and constipation. No rectal bleeding. Family history of colon cancer in her grandfather. Past Medical History Past Medical History: Asthma, COPD, GERD/Reflux, Hyperlipidemia Additional Past Medical History / Comment(s): HX OF GERD WITH HIATAL HERNIA REPAIR X2., BACK PAIN., STATES IUD-NO MENSTRUAL PERIODS FOR 9 YEARS. History of Any Multi-Drug Resistant Organisms: None Reported Past Surgical History: Back Surgery, Cholecystectomy Additional Past Surgical History / Comment(s): Kristopher fundoplasty, back surgery x 2, Repair of recurrent paraesophageal hiatal hernia repair 06/16/2016 Past Anesthesia/Blood Transfusion Reactions: Motion Sickness, Postoperative Nausea & Vomiting (PONV) Past Psychological History: Anxiety, Bipolar, Depression Smoking Status: Former smoker Past Alcohol Use History: None Reported Additional Past Alcohol Use History / Comment(s): quit smoking 2014, smoked for 2 yrs -1 PPD Past Drug Use History: Marijuana Additional Drug Use History / Comment(s): OCCASIONAL MARIJUANA USE - Past Family History Mother Family Medical History: No Reported History Medications and Allergies Home Medications Medication Instructions Recorded Confirmed Type clonazePAM [KlonoPIN] 0.25 mg PO DAILY 04/14/16 01/01/19 History Beclomethasone Dip 80 Mcg/Puff 2 puff INHALATION RT-BID 01/02/17 01/01/19 Hi story [Qvar] Salmeterol Xinafoate [Serevent 1 puff INHALATION RT-DAILY 01/02/17 01/01/19 History Diskus] Umeclidinium [place] [Incruse 1 puff INHALATION RT-DAILY 10/05/17 01/01/19 History Ellipta] Baclofen [Lioresal] 20 mg PO DAILY 12/30/18 01/01/19 History Cholecalciferol (Vitamin D3) 2,000 unit PO DAILY 12/30/18 01/01/19 History [Vitamin D3] FLUoxetine HCL [PROzac] 30 mg PO HS 12/30/18 01/01/19 History QUEtiapine FUMARATE [SEROquel] 300 mg PO HS 12/30/18 01/01/19 History Repatha Injection (Unk Dose) 1 dose IM DIRECTED 12/30/18 01/01/19 History lamoTRIgine [LaMICtal Xr] 300 mg PO DAILY 12/30/18 01/01/19 History Allergies Allergy/AdvReac Type Severity Reaction Status Date / Time cephalexin [From Keflex] Allergy Rash/Hives Verified 01/01/19 09:58 Iodinated Contrast- Oral and Allergy Rash/Hives Verified 01/01/19 09:58 IV Dye [Iodinated Contrast Media - IV Dye] ketorolac [From Toradol] Allergy Rash/Hives Verified 01/01/19 09:58 tramadol [From Ultram] AdvReac Intermediate Abdominal Verified 01/01/19 09:58 Pain hydrocodone [From [place]] AdvReac Nausea & Verified 01/01/19 09:58 Vomiting Surgical - Exam Vital Signs Temp Pulse Resp BP Pulse Ox 98.0 F 64 16 108/69 98 01/01/19 10:09 01/01/19 10:09 01/01/19 10:09 01/01/19 10:09 01/01/19 10:09 Physical exam: General: Well-developed, well-nourished HEENT: Normocephalic, sclerae nonicteric Abdomen: Nontender, nondistended Extremities: No edema Neuro: Alert and oriented Assessment and Plan (1) Change in bowel habits Narrative/Plan: Will proceed with colonoscopy at this time Current Visit: Yes Status: Acute Code(s): R19.4 - CHANGE IN BOWEL HABIT SNOMED Code(s): 544826410
--- NOTE | 2019-01-01 11:20 | P.PCN ---
Date of Procedure: 01/01/19 Procedure(s) Performed: PREOPERATIVE DIAGNOSIS: Change in bowel habits POSTOPERATIVE DIAGNOSIS: Normal exam PROCEDURE: Colonoscopy ANESTHESIA: MAC SURGEON: Lance Sharp M.D. SPECIMENS: None ENDOSCOPIC PROCEDURE: The patient was placed on the endoscopy table in the left decubitus position. The Olympus colonoscope was inserted into the anus and passed under direct visualization to the base of the cecum. The appendiceal orifice was visualized. From that point the scope was slowly withdrawn inspecti ng all surfaces carefully. There were no neoplastic inflammatory or polypoid lesions throughout the cecum, ascending, transverse, descending, sigmoid and rectum. There was no visible diverticulosis noted. Digital rectal examination was normal. The patient was taken to the recovery room in stable condition per anesthesia guidelines. RECOMMENDATIONS: Increase fiber. Follow colonoscopy age 50.
[2019-01-01 11:37] VITALS: BP 106/71; PULSE 61
== END 2019-01-01 11:57 | disposition home or self-care (01) ==
LOC: ORWHC2ENDO 09:39
PROVIDERS: ATTEND Surgery
DX: R19.4 Change in bowel habit (principal); Z80.0 Family history of malignant neoplasm of digestive organs; E78.5 Hyperlipidemia, unspecified; F32.9 Major depressive disorder, single episode, unspecified; J44.9 Chronic obstructive pulmonary disease, unspecified; K21.9 Gastro-esophageal reflux disease without esophagitis; Z87.891 Personal history of nicotine dependence; Z88.1 Allergy status to other antibiotic agents; Z88.5 Allergy status to narcotic agent; Z88.8 Allergy status to other drugs, medicaments and biological substances; Z79.899 Other long term (current) drug therapy
CPT/HCPCS: 81025; 45378; J1100; J2405; J2001; J2704

== ENCOUNTER → 2019-05-07 | Outpatient (CLI) | payer OTHER ==
[2019-05-13 09:59] LABS: AST 30 U/L (14-36)
[2019-05-13 10:01] LABS: Cholesterol 192 mg/dL (<200); HDL Cholesterol 77 mg/dL (40-60); LDL Cholesterol,Calculated 88 mg/dL (0-99); Triglycerides 133 mg/dL (<150)
[2019-05-13 10:03] LABS: ALT 35 U/L (9-52)
== END | disposition home or self-care (01) ==
LOC: LABWHC1 13:08
PROVIDERS: ATTEND Internal Medicine Interventional Cardiology
DX: E78.2 Mixed hyperlipidemia (principal)
CPT/HCPCS: 36415; 80061; 84450; 84460

== ENCOUNTER 2020-01-15 15:22 | Emergency (ER) | payer OTHER ==
[2020-01-15 15:30] VITALS: RESP 18
[2020-01-15] MEDS ORDERED: HYDROmorphone 1 MG/ML 1 ML SYRINGE IM STA (15:45)
[2020-01-15] MEDS ORDERED: methylPREDNISolone SOD SUCCI 125 MG/2 ML VIAL IM ONE (15:45)
--- NOTE | 2020-01-15 16:11 | ED ---
Back Pain HPI - General Chief Complaint: Back Pain/Injury Stated Complaint: back pain Time Seen by Provider: 01/15/20 15:37 Source: patient, RN notes reviewed Mode of arrival: ambulatory Limitations: no limitations - History of Present Illness Initial Comments: This is a 34-year-old female presents emergency Department chief complaint of severe low back pain. Patient states that she was stepping over a baby gate today and felt a pop. She has some radicular symptoms on her right leg. She has any bowel, bladder incontinence or retention. Denies any saddle anesthesia or lower external paresthesia. She's had 2 prior surgeries which included a laminectomy L3 and L4. Patient states that she's been having increasing pain for a while and which she saw her PCP x-ray showed possible pressure deformity. Patient has been referred to Dr. Hannon pending appointment. Patient has no complaints of abdominal pain denies any chance states that there is no chance . Patient denies any flank pain, dysuria, hematuria. - Related Data Home Medications Medication Instructions Recorded Confirmed Beclomethasone Dip 80 Mcg/Puff 1 puff INHALATION RT-BID 01/02/17 01/15/20 [Qvar] Salmeterol Xinafoate [Serevent 1 puff INHALATION RT-BID 01/02/17 01/15/20 Diskus] Umeclidinium [place] [Incruse 1 puff INHALATION RT-DAILY 10/05/17 01/15/20 Ellipta] Cholecalciferol (Vitamin D3) 2,000 unit PO DAILY 12/30/18 01/15/20 [Vitamin D3] Baclofen [Lioresal] 10 mg PO BID 01/15/20 01/15/20 Cetirizine HCl [Zyrtec] 10 mg PO HS 01/15/20 01/15/20 Evolocumab [Repatha Syringe] 140 mg SQ Q14D 01/15/20 01/15/20 FLUoxetine HCL [PROzac] 20 mg PO DAILY 01/15/20 01/15/20 Levalbuterol Tartrate 2 puff INHALATION RT-QID PRN 01/15/20 01/15/20 [Levalbuterol Tartrate 45 MCG Hfa] Naproxen 500 mg PO BID 01/15/20 01/15/20 Prazosin HCl 2 mg PO HS 01/15/20 01/15/20 QUEtiapine FUMARATE [SEROquel] 200 mg PO HS 01/15/20 01/15/20 clonazePAM [Klonopin ODT [place]] 0.25 mg PO BID PRN 01/15/20 01/15/20 lamoTRIgine [LaMICtal] 300 mg PO DAILY 01/15/20 01/15/20 Previous Rx's Medication Instructions Recorded Hydrocodone/Acetaminophen [[place] 1 tab PO Q6HR PRN #12 tab 01/15/20 5-325] Ondansetron Odt [Zofran Odt] 4 mg PO Q8HR PRN #10 tab 01/15/20 predniSONE 50 mg PO DAILY #5 tab 01/15/20 Allergies Allergy/AdvReac Type Severity Reaction Status Date / Time cephalexin [From Keflex] Allergy Rash/Hives Verified 01/15/20 16:58 Iodinated Contrast Media Allergy Rash/Hives Verified 01/15/20 16:58 [Iodinated Contrast Media - IV Dye] ketorolac [From Toradol] Allergy Rash/Hives Verified 01/15/20 16:58 tramadol [From Ultram] AdvReac Intermediate Abdominal Verified 01/15/20 16:58 Pain hydrocodone [From [place]] AdvReac Nausea & Verified 01/15/20 16:58 Vomiting Review of Systems ROS Statement: Those systems with pertinent positive or pertinent negative responses have been documented in the HPI. ROS Other: All systems not noted in ROS Statement are negative. Past Medical History Past Medical History: Asthma, COPD, GERD/Reflux, Hyperlipidemia Additional Past Medical History / Comment(s): HX OF GERD WITH HIATAL HERNIA REPAIR X2., BACK PAIN., STATES IUD-NO MENSTRUAL PERIODS FOR 9 YEARS. History of Any Multi-Drug Resistant Organisms: None Reported Past Surgical History: Back Surgery, Cholecystectomy Additional Past Surgical History / Comment(s): Kristopher fundoplasty, back surgery x 2, Repair of recurrent paraesophageal hiatal hernia repair 06/16/2016 Past Anesthesia/Blood Transfusion Reactions: Motion Sickness, Postoperative Nausea & Vomiting (PONV) Past Psychological History: Anxiety, Bipolar, Depression Past Alcohol Use History: None Reported Past Drug Use History: Marijuana - Past Family History Mother Family Medical History: No Reported History General Exam Limitations: no limitations General appearance: alert, in no apparent distress Head exam: Present: atraumatic, normocephalic, normal inspection Neck exam: Present: normal inspection, full ROM. Absent: tenderness, meningismus, lymphadenopathy Respiratory exam: Present: normal lung sounds bilaterally. Absent: respiratory distress, wheezes, rales, rhonchi, stridor Cardiovascular Exam: Present: regular rate, normal rhythm, normal heart sounds. Absent: systolic murmur, diastolic murmur, rubs, gallop, clicks GI/Abdominal exam: Present: soft, normal bowel sounds. Absent: distended, tenderness, guarding, rebound, rigid Extremities exam: Present: other (Lower extremity strength equal bilaterally neurovascular intact equal color equal warmth) Back exam: Present: full ROM, tenderness (Mild right), CVA tenderness (R), CVA tenderness (L), paraspinal tenderness. Absent: vertebral tenderness Neurological exam: Present: alert, oriented X3 Skin exam: Present: warm, dry, intact, normal color. Absent: rash Course Vital Signs 01/15/20 01/15/20 15:28 17:29 Temperature 98.2 F 97.5 F L Pulse Rate 101 H 83 Respiratory 18 18 Rate Blood Pressure 138/83 118/67 O2 Sat by Pulse 97 96 Oximetry Medical Decision Making - Medical Decision Making CT does not reveal any major changes from prior CT. Patient does have disc herniations. Patient will be discharged in stable condition she has no red flag symptoms. Return parameters were discussed. She has an appointment pending with orthopedic spine. Disposition Clinical Impression: Lumbar back pain Disposition: HOME SELF-CARE Condition: Stable Instructions (If sedation given, give patient instructions): Acute Low Back Pain (ED) Additional Instructions: Please return to the Emergency Department if symptoms worsen or any other concerns. Prescriptions: Hydrocodone/Acetaminophen [[place] 5-325] 1 tab PO Q6HR PRN #12 tab PRN Reason: Pain predniSONE 50 mg PO DAILY #5 tab Ondansetron Odt [Zofran Odt] 4 mg PO Q8HR PRN #10 tab PRN Reason: Nausea Is patient prescribed a controlled substance at d/c from ED?: Yes When asked, does pt state using other controlled substances?: No If prescribed controlled substance>3 days was MAPS reviewed?: Prescribed <3 Days If opioid is for acute pain is fill amount 7 days or less?: Yes If Rx opioid, was Start Talking consent form obtained?: Yes Referrals: Elaina Dolan MD [Primary Care Provider] - 1-2 days Time of Disposition: 18:04
[2020-01-15] MEDS ORDERED: ONDANSETRON 4 MG TAB PO STA (17:21)
[2020-01-15 17:30] VITALS: BP 118/67; PULSE 83; TEMP 97.5
--- NOTE | 2020-01-15 17:53 | CT ---
EXAMINATION TYPE: CT lumbar spine wo con DATE OF EXAM: 01/15/2020 COMPARISON: CT abdomen 06/19/2016 HISTORY: Low back pain after fall today. CT DLP: 1111.6 mGycm Automated exposure control for dose reduction was used. Multiple axial sections were obtained from T12 to S2 vertebra with no contrast. Lumbar vertebra have normal alignment. There is some narrowing and vacuum disc at L4-5 and L5-S1. The posterior elements are intact. There is no compression fracture. I see no focal bone destruction. Th ere is no lumbar paraspinal mass. There is posterior concentric mild disc herniation at L4-5 and L5-S 1. There is developmentally adequate spinal canal and no significant spinal stenosis. There is possib le laminectomy defect of L4 on the left side. Sacroiliac joints appear intact. IMPRESSION: Spondylosis at L4-5 and L5-S1 with mild posterior disc herniations probably unchanged compared to old CT scan. No compression fracture. No acute bony abnormality.
== END 2020-01-15 18:12 | disposition home or self-care (01) ==
LOC: EC 15:22
DX: M54.5 Low back pain (principal); J44.9 Chronic obstructive pulmonary disease, unspecified; F41.9 Anxiety disorder, unspecified; F31.9 Bipolar disorder, unspecified; Z79.51 Long term (current) use of inhaled steroids; Z79.899 Other long term (current) drug therapy; Z88.1 Allergy status to other antibiotic agents; Z91.041 Radiographic dye allergy status; Z88.5 Allergy status to narcotic agent; Z88.6 Allergy status to analgesic agent
CPT/HCPCS: 72131; 99283; 96372 ×2; J2930; J1170

== ENCOUNTER → 2020-02-20 | Outpatient (CLI) | payer OTHER ==
--- NOTE | 2020-02-20 19:22 | MR ---
EXAMINATION TYPE: MR lumbar spine wo con DATE OF EXAM: 02/20/2020 COMPARISON: HISTORY: Low back pain CONTRAST: 0 mL intravenous . TECHNIQUE: Multiplanar, multisequence images of the lumbar spine were acquired. FINDINGS: Cord terminates at the T12 level. Disc desiccation is present L3-4 L4-5 L5-S1. L5-S1: No significant disc bulge or disc herniation. No spinal canal stenosis. No foraminal stenosi s. Endplate changes are present.. L4-L5: Mild disc bulge is present with anterior thecal sac flattening. No AP spinal canal stenosis is present. Neural foramen are patent. There is some mild right facet hypertrophy and ligamentum flavum laxity with posterior lateral thecal sac compression. Endplate changes are present. L3-L4: Mild disc bulge is present with anterior thecal sac compression. There is increased signal wit hin the posterior disc space at L3-4 compatible with an annular tear. No AP spinal canal stenosis is present. Neural foramen are patent L2-L3: No significant disc bulge or disc herniation. No spinal canal stenosis. No foraminal stenosi s. Neural foramen are patent.. L1-L2: No significant disc bulge or disc herniation. No spinal canal stenosis. No foraminal stenosi s. Neural foramen are patent.. T12-L1: No significant disc bulge or disc herniation. No spinal canal stenosis. No foraminal stenos is. Neural foramen are patent.. IMPRESSION: 1. Annular tear L3-4 with mild anterior thecal sac flattening. 2. Degenerative disc changes with narrowing of the disc height and mild thecal sac flattening L4-5.
== END | disposition home or self-care (01) ==
LOC: RADMRIMAIN 11:16
PROVIDERS: ATTEND Orthopaedic Surgery
DX: M99.73 Connective tissue and disc stenosis of intervertebral foramina of lumbar region (principal); M51.36 Other intervertebral disc degeneration, lumbar region
CPT/HCPCS: 72148

== ENCOUNTER → 2020-03-30 | Day surgery (SDC) | payer OTHER ==
[2020-03-29 11:25] VITALS: BMI 28.8
[~2020-03-30] MED LIST changes: +IOPAMIDOL M200 10 ML VIAL ONE; +IV FLUID CONTINUATION 1,000 ML IV ONE; +LIDOCAINE 1% (10MG/ML) FOR IV START INTRADERMA ONE; -LIDOCAINE 1% 20 ML VIAL (10MG/ML) FOR IV START INTRADERMA PRN; +MIDAZOLAM 2 MG/2 ML VIAL ONE; +ROPIVACAINE 5MG/ML 20ML VIAL ONE; +TRIAMCINOLONE ACETONIDE 40 MG/ML 1 ML VIAL ONE; +diphenhydrAMINE 50 MG/ML 1 ML VIAL ONE; +fentaNYL (PF) 50 MCG/ML 2 ML AMP ONE
[2020-03-30 08:44] VITALS: TEMP 97.7
--- NOTE | 2020-03-30 09:09 | P.CONS ---
History of Present Illness - Reason for Consult Consult date: 03/30/20 - Chief Complaint Lower back and hips pain - History of Present Illness This is a 35-year-old lady with history of 2 back surgeries and chronic lower back pain with radiation to the hips bilaterally. She occasionally feels pain radiating down to both feet however she denies any paresthesia in the lower extremities. She denies any bowel or bladder dysfunction or any weight loss recently. The pain gets worse by increasing level of activities. It improves by resting. The patient takes Trinity for her pain and occasionally uses marijuana. The patient had multiple injections on her back previously at a different clinic clinic. We do not have these records. Past Medical History Past Medical History: Asthma, GERD/Reflux, Hyperlipidemia Additional Past Medical History / Comment(s): BACK PAIN. History of Any Multi-Drug Resistant Organisms: None Reported Past Surgical History: Back Surgery, Cholecystectomy, Hernia Repair Additional Past Surgical History / Comment(s): Kristopher fundoplasty, back surgery X2, repair of recurrent paraesophageal hiatal hernia X2. Past Anesthesia/Blood Transfusion Reactions: Motion Sickness, Postoperative Nausea & Vomiting (PONV) Additional Past Anesthesia/Blood Transfusion Reaction / Comm: Emotional coming out of anesthesia. Past Psychological History: Anxiety, Bipolar, Depression Smoking Status: Former smoker Past Alcohol Use History: None Reported Additional Past Alcohol Use History / Comment(s): Quit smoking in 2014, smoked for 2 yrs, 1 PPD. Past Drug Use History: Marijuana Additional Drug Use History / Comment(s): NIGHTLY MARIJUANA USE. Aware no use 24 hrs prior to procedure. - Past Family History Mother Family Medical History: No Reported History Medications and Allergies Home Medications Medication Instructions Recorded Confirmed Type Beclomethasone Dip 80 Mcg/Puff 1 puff INHALATION RT-BID 01/02/17 03/29/20 History [Qvar] Salmeterol Xinafoate [Serevent 1 puff INHALATION RT-BID 01/02/17 03/29/20 History Diskus] Umeclidinium [place] [Incruse 1 puff INHALATION RT-DAILY 10/05/17 03/29/20 History Ellipta] Baclofen [Lioresal] 10 mg PO BID 01/15/20 03/29/20 History Cetirizine HCl [Zyrtec] 10 mg PO HS 01/15/20 03/29/20 History Evolocumab [Repatha Syringe] 140 mg SQ Q14D 01/15/20 03/29/20 History FLUoxetine HCL [PROzac] 20 mg PO DAILY 01/15/20 03/29/20 History Hydrocodone/Acetaminophen [Trinity 1 tab PO Q6HR PRN #12 tab 01/15/20 03/29/20 Rx 5-325] Levalbuterol Tartrate 2 puff INHALATION RT-QID PRN 01/15/20 03/29/20 History [Levalbuterol Tartrate 45 MCG Hfa] Naproxen 500 mg PO BID PRN 01/15/20 03/29/20 History Ondansetron Odt [Zofran Odt] 4 mg PO Q8HR PRN #10 tab 01/15/20 03/29/20 Rx Prazosin HCl 2 mg PO HS 01/15/20 03/29/20 History QUEtiapine FUMARATE [SEROquel] 200 mg PO HS 01/15/20 03/29/20 History clonazePAM [Klonopin ODT Wafer] 0.25 mg PO BID PRN 01/15/20 03/29/20 History lamoTRIgine [LaMICtal] 300 mg PO DAILY 01/15/20 03/29/20 History Allergies Allergy/AdvReac Type Severity Reaction Status Date / Time cephalexin [From Keflex] Allergy Rash/Hives Verified 03/30/20 08:40 Iodinated Contrast Media Allergy Rash/Hives Verified 03/30/20 08:40 [Iodinated Contrast Media - IV Dye] ketorolac [From Toradol] Allergy Rash/Hives Verified 03/30/20 08:40 tramadol [From Ultram] AdvReac Intermediate Abdominal Verified 03/30/20 08:40 Pain Physical Exam Vitals: Vital Signs Temp Pulse Resp BP Pulse Ox 03/30/20 08:42 97.7 F 71 18 144/85 97 Intake and Output 03/29/20 03/30/20 03/30/20 22:59 06:59 14:59 Other: Weight 88.2 kg - Constitutional General appearance: obese - EENT Eyes: PERRLA - Integumentary Integumentary: no calor, no cellulitis, no cyanotic, no decreased turgor, no flushed, no jaundiced, no normal, no normal turgor, no pale, no rash, no ulcer - Neurologic Muscle strength in the lower extremities showed normal muscle strength bilaterally and symmetrically. Straight leg raising test negative bilaterally Reinaldo's test mildly positive on the right side Internal and external rotation of the hip joints did elicit pain on both sides Positive tenderness in the lumbar paravertebral musculature bilaterally Small well-healed scar from her previous lumbar surgery Neurologic: CNII-XII intact - Psychiatric Psychiatric: A&O x's 3, appropriate affect, intact judgment & insight Results Results: The lumbar spine MRI without contrast was done on 02/20/2020 and showed annular tear at L3 4 level and degenerative changes with disc height loss at L4 5 level and facet hypertrophy at L4 5. Assessment and Plan Plan: This is a 35-year-old lady with history of mostly axial lower back pain with radiation only to the hips with occasional radiation down to the toes however she denies any paresthesia in the lower extremities. Differential diagnoses includes: Lumbar post laminectomy pain syndrome Lumbar facet arthropathy Lumbar DDD Lumbar radiculopathy Possible right sacroiliitis Possible osteoarthritis in hips bilaterally The patient does not show any radicular distribution of her pain today I will paresthesia in the lower extremities. I think she will benefit from getting an interlaminar epidural steroid injection at the L3 4 level today. If she develops radicular symptoms in the future especially if it is associated with paresthesia in the lower extremities we might need to do transforaminal epidural steroid injection. The patient is ALLERGIC to contrast dye with hives , we will give her 50 mg of IV Benadryl before the procedure. I asked the patient to give us a copy of her previous pain procedure record. I thank you for the referral
--- NOTE | 2020-03-30 09:24 | P.PCN ---
Date of Procedure: 03/30/20 Surgeon: Tina Kinney Pathology: none sent Condition: stable Disposition: PACU Description of Procedure: PREOPERATIVE DIAGNOSIS: 1 postlaminectomy pain syndrome 2- Lumber Degenerative Disc Diseases. POSTOPERATIVE DIAGNOSIS: 1-postlaminectomy pain syndrome 2-Lumbar Degenerative Disc Diseases PROCEDURE 1. Lumbar epidural steroid injection under fluoroscopic guidance at the L3-4 level. 2. Lumbar epidurogram. ANESTHESIA: Local with 1% lidocaine; and IV moderate conscious sedation with Versed and fentanyl EBL: Minimal PROCEDURE INDICATION: The patient with low back pain and radiculitis symptoms unresponsive to conservative treatment. Fluoroscopy was used to optimize visualization of the needle placement and to maximize safety. The patient has an ALLERGY to contrast dye. We gave her 50 mg of IV Benadryl preoperatively. Her reaction to contrast dye is skin hives only. PROCEDURE DESCRIPTION / TECHNIQUE: The patient was seen and identified in the preoperative area. Risks, benefits, complications including but not limited to infections ,bleeding ,allergic reaction to the medications ,nerve damage and not complete pain relief , and alt ernatives were discussed with the patient. The patient agreed to proceed with the procedure and signed the consent. IV was started, and vital signs were stable. Patient was taken to the OR and time out was completed. The patient was placed in the prone position on procedure table and a pillow was placed under the abdomen to reduce lumbar lordosis. The lumbosacral area was prepped and draped in the usual sterile fashion with ChloraPrep.Patient was closely monitored during the procedure. Conscious sedation was used during the procedure to decrease patients anxiety. Vital signs were monitered during the entire procedure. Using anterior-posterior fluoroscopy, the L3-4 interlaminar space was identified and the skin over this site was marked and then infiltrated with 1% lidocaine subcutaneously. Subsequently, a 20-gauge Tuohy epidural needle was inserted and advanced toward the epidural space using the Loss of resistance to air technique and guided by AP and lateral fluoroscopy. The correct needle position in the epidural space was verified with the injection of 1 mL of the water soluble contrast dye Omnipaque 180 contrast and observing an excellent epidurogram with the epidural spread of the dye, after negative aspiration for blood and CSF and in the absence of paresthesias. Again after negative aspiration, a 8 ml mixture containing 80 mg of Kenalog and 5 ml of preservative free Normal Saline, and 2 ml of preservative free ropivacaine 0.5% solution was injected and a washout of epidurogram was seen. Needle was withdrawn intact, skin was cleansed, and bandages were applied. patient tolerated procedure well and was transferred to PACU in stable condition.A copy of the needle placement picture was saved to the fluoroscopy machine. COMPLICATIONS: None DISPOSITION / PLANS: The patient was placed in a supine position and transferred to the recovery area in a stable condition for observation. There was no evidence of lower extremity motor or sensory deficit after the procedure. Patient was discharged from the recovery room after meeting discharge criteria. Home discharge instructions were given to the patient by the staff. The patient was reexamined prior to discharge. The patient will schedule a follow up in the clinic in 2-4 weeks.
[2020-03-30 09:28] VITALS: RESP 16
--- NOTE | 2020-03-30 09:34 | FL ---
EXAMINATION TYPE: FL guided pain mgmt statistic DATE OF EXAM: 03/30/2020 CLINICAL HISTORY: Low back pain. TECHNIQUE: Fluoroscopy. COMPARISON: None. FINDINGS: Fluoroscopic guidance was provided during pain relief procedure performed by Dr. Kinney. A total of 4 seconds of fluoroscopic time was utilized during the procedure and 2 spot images are ac quired. Images acquired shows needle localization from posterior approach suspected near thoracolumb ar junction. IMPRESSION: As Above.
[2020-03-30 09:44] VITALS: BP 121/75; PULSE 63
== END ==
LOC: ORPAIN 08:18
PROVIDERS: ATTEND Anesthesiology
DX: G89.29 Other chronic pain (principal); M96.1 Postlaminectomy syndrome, not elsewhere classified; M51.16 Intervertebral disc disorders with radiculopathy, lumbar region; M47.26 Other spondylosis with radiculopathy, lumbar region; J45.909 Unspecified asthma, uncomplicated; K21.9 Gastro-esophageal reflux disease without esophagitis; E78.5 Hyperlipidemia, unspecified; Z90.49 Acquired absence of other specified parts of digestive tract; Z98.890 Other specified postprocedural states; F41.9 Anxiety disorder, unspecified; F31.9 Bipolar disorder, unspecified; Z87.891 Personal history of nicotine dependence; Z79.51 Long term (current) use of inhaled steroids; Z79.899 Other long term (current) drug therapy; Z88.5 Allergy status to narcotic agent; Z88.6 Allergy status to analgesic agent; Z88.1 Allergy status to other antibiotic agents; Z91.041 Radiographic dye allergy status
CPT/HCPCS: 81025; 62323; J2250; J1200; J3301; J3010; Q9966; J2795; 64484; 99152

== ENCOUNTER → 2020-05-05 | Outpatient (CLI) | payer OTHER ==
[2020-05-05 14:14] VITALS: BP 125/86; PULSE 88; RESP 20; TEMP 98
--- NOTE | 2020-05-05 15:11 | P.PN ---
Subjective Progress Note Date: 05/05/20 This is a follow-up visit for this 35 years old female with a chronic history of severe low back pain, recently we have done lumbar epidural steroid injection at L3 4 levels, patient had minimal benefit after the epidural steroid injection, and she reported that she had multiple epidural injection in the past with only minimal benefit from it, she continued to have severe low back pain and its axial nature with some radiation to the buttock area, she denies any motor or sensory deficit, she denies any fever or night sweats, the pain is constant interfere with activity of daily livings, patient had 2 back surgery previously Objective - Vital Signs Vital signs: Vital Signs Temp 98 F 05/05/20 14:08 Pulse 88 05/05/20 14:08 Resp 20 05/05/20 14:08 BP 125/86 05/05/20 14:08 Pulse Ox Intake & Output 05/04/20 05/05/20 05/05/20 18:59 06:59 18:59 Weight 86.183 kg - Exam Physical Examinations : -Constitutiona : Cooperative , not in acute distress . -HEENT : nech : supple , no Lymphadenopathy , normal thyroid size . : eyes : no ptosis , no icterus, no photophobia . - neurologic : Cranial nerve II to XII intact , no focal neurological deffecit . -psychatric : alert , oriented X 3 , appropriate affect , intact judgment and insight . -Lymphatic : no Lymphadenopathy . - musculoskeltal : Lumber spine moter stegnth lower extremities ,thigh and legs 5/5 Right side , 5/5 Left side deep tendon reflexes : normal Knee Jerk , normal ankle Jerk lumber facet Loading Test =positive Right , positive Left Range of motion of the lumbar spine Flexion 30 degrees, extension 10 degrees strait leg raising test = positive at 30 degree Fabere test= positive Right , and positive LT . tenderness over the Sacroiliac joint on the Right , and Left sides Results: The lumbar spine MRI without contrast was done on 02/20/2020 and showed annular tear at L3 4 level and degenerative changes with disc height loss at L4 5 level and facet hypertrophy at L4 5. Assessment and Plan Plan: Assessment and plan This is a 35-year-old lady with history of mostly axial lower back pain Lumbar post laminectomy pain syndrome Lumbar facet arthropathy Lumbar DDD Possible sacroiliitis Possible osteoarthritis in hips bilaterally Patient had lumbar epidural steroid injection at L3 4 levels and she had minimal benefit from it, and she reported that previously she had multiple epidural steroid injections done in the past with only minimal benefit, patient could benefit from diagnostic medial branch block on possible RFA, patient will be scheduled to have bilateral medial branch block lumbar area at L3, L4, L5 and if positive we will proceed RFA. Patient given prescription refill for [place] 5/325 every 12 hours dispense 30 with one refill, she signed the narcotic agreement patient will not get any opioid from her primary care while she is under treatment in our pain clinic - PQRS measures = - Patient's medications are documented in the chart. -Tobacco use is negative and counseling.Given. -Patient's has not received pneumococcal vaccine. -Advanced care planning discussed, patient not eligible. -Opiate contract signed.today -Pain positive and follow-up visit/procedure is scheduled. -Patient's blood pressure measured [ 125/86 ] , and documented in the record ,and patient will follow up with the primary care. -Patient's weight was measured and body mass index ,above the normal limits and counseling was done. and patient instructed to follow-up with the primary care physician. -Patient was not identified as an unhealthy alcohol user Time with Patient: Less than 30
== END | disposition home or self-care (01) ==
LOC: PNWHC3 13:44
PROVIDERS: ATTEND Specialist
DX: M96.1 Postlaminectomy syndrome, not elsewhere classified (principal); M51.36 Other intervertebral disc degeneration, lumbar region; M47.816 Spondylosis without myelopathy or radiculopathy, lumbar region; Z79.891 Long term (current) use of opiate analgesic
CPT/HCPCS: 99211

== ENCOUNTER 2020-06-01 07:29 | Day surgery (SDC) | payer OTHER ==
[2020-05-26 10:09] VITALS: BMI 28.8
[2020-06-01 08:24] VITALS: RESP 16; TEMP 96.8
[2020-06-01] MEDS ORDERED: ROPIVACAINE 5MG/ML 20ML VIAL ONE (09:16)
[2020-06-01] MEDS ORDERED: TRIAMCINOLONE ACETONIDE 40 MG/ML 1 ML VIAL ONE (09:16)
[2020-06-01] MEDS ORDERED: MIDAZOLAM 2 MG/2 ML VIAL ONE (09:16)
[2020-06-01] MEDS ORDERED: fentaNYL (PF) 50 MCG/ML 2 ML AMP ONE (09:16)
[2020-06-01] MEDS ORDERED: LACTATED RINGERS 1,000 ML IV ONE (09:17)
--- NOTE | 2020-06-01 09:36 | P.OP ---
Date of Procedure: 06/01/20 Preoperative Diagnosis: Lumbar spondylosis without myelopathy Postoperative Diagnosis: Lumbar spondylosis without myelopathy lumbar spondylosis without myelopathy Procedure(s) Performed: Bilateral lumbar L4-L5, and L5-S1 medial branch block under fluoroscopic Anesthesia: JONATAN Surgeon: Inna Gonzáles Estimated Blood Loss (ml): 0 IV fluids (ml): 100 Urine output (ml): 0 Pathology: none sent Condition: stable Disposition: PACU Description of Procedure: The patient was seen and examined. The written informed consent was obtained after explaining the risks, benefits and alternatives of the procedure to the patient. The patient was brought to the procedure room and was placed in the prone position on the operating table table. A pillow was placed under the abdomen to reduce lumbar lordosis. Standard anesthesia monitoring was done through out the procedure. The skin preparation was done with ChloraPrep, and draping was done in usual sterile fashion. Sterile technique was observed throughout the procedure. Under fluoroscopic guidance, left the Lumbar 4, 5 and Sacral ala levels were identified in the AP view. For right-sided lumbar L4, and L5 levels the targeting area of superior articular process, and close to the most medial and superior aspect of transverse process identified, marked. 1ml of 1% Lidocaine was used with a 25 gauge needle to achieve adequate local anesthesia of the skin and subcutaneous tissue at each level. A 25 gauge 3.5 inch spinal needle was placed and advanced targeting area which was close to the most medial and superior aspect of the transverse process. For Lumbar 5/ sacral ala level, fluoroscope was used in the anteroposterior view, and the needle tip was placed at the superior and most medial part of sacral ala close to the superior articular process. A bony contact was obtained and needle tip position was confirmed at anteroposterior view. No paresthesia was noted. A negative aspiration was confirmed. 1 ml solution per level was injected, the block solution containing 6 ml of 0.5% ropivacaine preservative-free solution mixed with 40 MG of Kenalog. The needles were removed intact. Entire procedure repeated on the left side.. Lumbar area was cleaned and bandages were applied. Disposition : The patient tolerated the procedure very well. The patient was transferred to the recovery room and remained stable until discharged home. The patient was given detailed discharge instructions for infection, bleeding, and increased pain at the injection site, and was advised to seek immediate medical attention should significant side effects develop. The patient will be scheduled with Pain Clinic within 2-4 weeks for lumbar MBB repeat procedure if it's helpful. Plan - Discharge Summary Discharge Rx Participant: No New Discharge Prescriptions: No Action Salmeterol Xinafoate [Serevent Diskus] 1 puff INHALATION RT-BID Beclomethasone Dip 80 Mcg/Puff [Qvar] 1 puff INHALATION RT-BID Umeclidinium [place] [Incruse Ellipta] 1 puff INHALATION RT-DAILY QUEtiapine FUMARATE [SEROquel] 300 mg PO HS Prazosin HCl 2 mg PO HS lamoTRIgine [LaMICtal] 300 mg PO DAILY Naproxen 500 mg PO BID PRN PRN Reason: Pain Levalbuterol Tartrate [Levalbuterol Tartrate 45 MCG Hfa] 2 puff INHALATION RT-QID PRN PRN Reason: Shortness Of Breath clonazePAM [Klonopin ODT Wafer] 0.25 mg PO BID PRN PRN Reason: Anxiety FLUoxetine HCL [PROzac] 20 mg PO DAILY Cetirizine HCl [Zyrtec] 10 mg PO HS Baclofen [Lioresal] 10 mg PO BID Evolocumab [Repatha Syringe] 140 mg SQ Q14D Hydrocodone/Acetaminophen [[place]tis 5-325] 1 tab PO Q6HR PRN #12 tab PRN Reason: Pain Ondansetron Odt [Zofran Odt] 4 mg PO Q8HR PRN #10 tab PRN Reason: Nausea Discharge Medication List Beclomethasone Dip 80 Mcg/Puff [Qvar] 1 puff INHALATION RT-BID 01/02/17 [History] Salmeterol Xinafoate [Serevent Diskus] 1 puff INHALATION RT-BID 01/02/17 [H istory] Umeclidinium [place] [Incruse Ellipta] 1 puff INHALATION RT-DAILY 10/05/17 [History] Baclofen [Lioresal] 10 mg PO BID 01/15/20 [History] Cetirizine HCl [Zyrtec] 10 mg PO HS 01/15/20 [History] Evolocumab [Repatha Syringe] 140 mg SQ Q14D 01/15/20 [History] FLUoxetine HCL [PROzac] 20 mg PO DAILY 01/15/20 [History] Hydrocodone/Acetaminophen [[place]tis 5-325] 1 tab PO Q6HR PRN #12 tab 01/15/20 [Rx] Levalbuterol Tartrate [Levalbuterol Tartrate 45 MCG Hfa] 2 puff INHALATION RT- QID PRN 01/15/20 [History] Naproxen 500 mg PO BID PRN 01/15/20 [History] Ondansetron Odt [Zofran Odt] 4 mg PO Q8HR PRN #10 tab 01/15/20 [Rx] Prazosin HCl 2 mg PO HS 01/15/20 [History] QUEtiapine FUMARATE [SEROquel] 300 mg PO HS 01/15/20 [History] clonazePAM [Klonopin ODT Wafer] 0.25 mg PO BID PRN 01/15/20 [History] lamoTRIgine [LaMICtal] 300 mg PO DAILY 01/15/20 [History] Discharge/Stand Alone Forms: [facility] Diary, [facility] Instructions Discharge Disposition: HOME SELF-CARE
[2020-06-01] MEDS ORDERED: IV FLUID CONTINUATION 900 ML IV ONE (09:37)
--- NOTE | 2020-06-01 09:46 | FL ---
EXAMINATION TYPE: FL guided pain mgmt statistic DATE OF EXAM: 06/01/2020 FLUOROSCOPY Fluoroscopy time of 3 seconds was used during bilateral lumbar facet blocks. 2 image/s document/s th e procedure.
[2020-06-01 10:03] VITALS: BP 113/67; PULSE 69
== END 2020-06-01 10:05 | disposition home or self-care (01) ==
LOC: ORPAIN 07:29
DX: M47.816 Spondylosis without myelopathy or radiculopathy, lumbar region (principal); Z79.51 Long term (current) use of inhaled steroids; Z79.899 Other long term (current) drug therapy; Z88.1 Allergy status to other antibiotic agents; Z88.6 Allergy status to analgesic agent; Z91.041 Radiographic dye allergy status; Z98.890 Other specified postprocedural states
CPT/HCPCS: 81025; 64493; 64494; J2250; J3301; J3010; J2795

== ENCOUNTER 2020-07-09 10:00 | Day surgery (SDC) | payer OTHER ==
[2020-07-08 09:45] VITALS: BMI 31.0
[~2020-07-09 10:00] MED LIST changes: -IOPAMIDOL M200 10 ML VIAL ONE; -IV FLUID CONTINUATION 1,000 ML IV ONE; -LIDOCAINE 1% (10MG/ML) FOR IV START INTRADERMA ONE; -MIDAZOLAM 2 MG/2 ML VIAL ONE; -ROPIVACAINE 5MG/ML 20ML VIAL ONE; -TRIAMCINOLONE ACETONIDE 40 MG/ML 1 ML VIAL ONE; -diphenhydrAMINE 50 MG/ML 1 ML VIAL ONE; -fentaNYL (PF) 50 MCG/ML 2 ML AMP ONE
[2020-07-09 10:22] VITALS: RESP 16; TEMP 97.7
[2020-07-09] MEDS ORDERED: LIDOCAINE 1% (10MG/ML) FOR IV START INTRADERMA ONE (10:38)
[2020-07-09] MEDS ORDERED: ROPIVACAINE 5MG/ML 20ML VIAL ONE (11:01)
[2020-07-09] MEDS ORDERED: MIDAZOLAM 2 MG/2 ML VIAL ONE (11:01)
[2020-07-09] MEDS ORDERED: TRIAMCINOLONE ACETONIDE 40 MG/ML 1 ML VIAL ONE (11:01)
--- NOTE | 2020-07-09 11:16 | P.PCN ---
Date of Procedure: 07/09/20 Surgeon: Tina Kinney Pathology: none sent Condition: stable Disposition: PACU Description of Procedure: PREOPERATIVE DIAGNOSIS : 1- Lumbar spondylosis with Facet Arthropathy without myelopathy . 2- Lumber degenerative disc disease POSTOPERATIVE DIAGNOSIS: 1- Lumbar spondylosis with Facet Arthropathy without myelopathy . 2- Lumber degenerative disc disease PROCEDURE: Diagnostic bilateral L4 -5 , and L5-S1 medial branch block under fluoroscopy Physician: Tina Kinney MD ANESTHESIA: Local with 1% lidocaine; IV moderate conscious sedation by the anesthesia department. EBL: Negligible COMPLICATION: None. PROCEDURE INDICATION: Chronic low back pain secondary to Facet arthropathy unresponsive to conservative treatment. The patient had 70% of pain relief immediately after the first medial branch block which was done a few weeks ago. PROCEDURE DESCRIPTION: the patient was seen and identified in the preop holding area , risks and benefits and possible complications of the procedure and alternatives were discussed with the patient, and the patient agreed to proceed with the procedure and signed the consent. IV was started and vital signs monitored during the procedure and fluoroscopy was used to maximize the benefit and accuracy of the needle placement, sedation was given to decrease patient anxiety, patient was taken to the procedure room and placed in prone position vital signs monitored. The patient was brought into the procedure room and placed in prone position. Skin was prepped with Chloraprep and draped in a sterile manner. Lidocaine 1% was used to numb the skin up at the target points that were chosen as follows: at the L5-S1 level which corresponds to the dorsal ramus of L5 the target points were at the superior medial aspect of the sacral ala on each side of the spine on the AP view of fluoroscopy, and for the L3 and L4 medial branches the target points were the connection between the transverse process and the superior to go process of L4 and L5 respectively on the oblique views of fluoroscopy. I used 22-gauge 3-1/2 inch Quincke spinal needles for this procedure and after contacting bone at the target points mentioned above I injected 1 mL of a mixture of Kenalog 40 mg +5 MLS of Ropivacaine 0.5% PF . Patient tolerated procedure well. At the end of the procedure the needles removed and a bandage applied after the skin was cleaned the cleaning solution. patient was then taken to the recovery room in stable condition and monitored in the recovery room for 20-30 minutes and discharged home in stable condition after discharge criteria met . A copy of the needle placement picture was saved to the C-arm machine.
[2020-07-09] MEDS ORDERED: IV FLUID CONTINUATION 1,000 ML IV ONE (11:20)
--- NOTE | 2020-07-09 11:31 | FL ---
Fluoroscopy INDICATION: Pain FINDINGS: Fluoroscopy time: 7 seconds. Images obtained: 4. IMPRESSIONS: 1. Documentation of fluoroscopy.
[2020-07-09 11:32] VITALS: BP 123/76; PULSE 70
== END 2020-07-09 11:48 ==
LOC: ORPAIN 10:00
PROVIDERS: ATTEND Anesthesiology
DX: G89.29 Other chronic pain (principal); M47.816 Spondylosis without myelopathy or radiculopathy, lumbar region; M51.36 Other intervertebral disc degeneration, lumbar region; F32.9 Major depressive disorder, single episode, unspecified; J45.909 Unspecified asthma, uncomplicated; F41.9 Anxiety disorder, unspecified; K21.9 Gastro-esophageal reflux disease without esophagitis; Z98.890 Other specified postprocedural states; Z91.041 Radiographic dye allergy status; Z88.1 Allergy status to other antibiotic agents; Z88.6 Allergy status to analgesic agent; Z88.5 Allergy status to narcotic agent; Z79.899 Other long term (current) drug therapy; Z79.1 Long term (current) use of non-steroidal anti-inflammatories (NSAID); Z79.891 Long term (current) use of opiate analgesic
CPT/HCPCS: 81025; 64493; 64494; J2250; J3301; J2795

== ENCOUNTER → 2020-08-02 | Outpatient (CLI) | payer OTHER ==
--- NOTE | 2020-08-02 14:44 | P.PN ---
Subjective Progress Note Date: 08/02/20 This is a follow-up visit for this 35 years old female with a chronic history of severe low back pain, recently we have done diagnostic medial branch block lumbar area at L3, L4, L5 x2 , patient reported that her VAS before the first block was 6/10 dropped to 0-1/10 after the block and the pain relief was for short-term only, and she gets similar result after the second diagnostic medial branch block, patient denies any motor or sensory deficit she denies any fever or night sweats and there is no change in the bowel movement or urination Objective - Vital Signs Vital signs: Vital Signs Temp 98.1 F 08/02/20 14:14 Pulse 100 08/02/20 14:14 Resp 18 08/02/20 14:14 BP 124/86 08/02/20 14:14 Pulse Ox 97 08/02/20 14:14 Intake & Output 08/01/20 08/02/20 08/02/20 18:59 06:59 18:59 Weight 92.986 kg - Exam -Constitutiona : Cooperative , not in acute distress . -HEENT : nech : supple , no Lymphadenopathy , normal thyroid size . : eyes : no ptosis , no icterus, no photophobia . - neurologic : Cranial nerve II to XII intact , no focal neurological deffecit . -psychatric : alert , oriented X 3 , appropriate affect , intact judgment and insight . -Lymphatic : no Lymphadenopathy . - musculoskeltal : Lumber spine moter stegnth lower extremities ,thigh and legs 5/5 Right side , 5/5 Left side deep tendon reflexes : normal Knee Jerk , normal ankle Jerk lumber facet Loading Test =positive Right , positive Left Range of motion of the lumbar spine Flexion 30 degrees, extension 10 degrees strait leg raising test = positive at 30 degree Fabere test= positive Right , and positive LT . tenderness over the Sacroiliac joint on the Right , and Left sides Assessment and Plan Plan: The lumbar spine MRI without contrast was done on 02/20/2020 and showed annular tear at L3 4 level and degenerative changes with disc height loss at L4 5 level and facet hypertrophy at L4 5. Assessment and plan This is a 35-year-old lady with history of mostly axial lower back pain Lumbar post laminectomy pain syndrome Lumbar facet arthropathy Lumbar DDD Possible sacroiliitis Possible osteoarthritis in hips bilaterally Patient had more than 80% improvement in her low back pain after diagnostic medial branch blocks lumbar area x2 She could benefit from RFA of the medial branch lumbar area at L3, L4, L5, bilaterally Patient given prescription refill for [place] 5/325 every 12 hours dispense 30 with one refill, she signed the narcotic agreement patient will not get any opioid from her primary care while she is under treatment in our pain clinic - PQRS measures = - Patient's medications are documented in the chart. -Tobacco use is negative and counseling.Given. -Patient's has not received pneumococcal vaccine. -Advanced care planning discussed, patient not eligible. -Opiate contract signed.today -Pain positive and follow-up visit/procedure is scheduled. -Patient's blood pressure measured [ 124/86 ] , and documented in the record ,and patient will follow up with the primary care. -Patient's weight was measured and body mass index 32.2,above the normal limits and counseling was done. and patient instructed to follow-up with the primary care physician. -Patient was not identified as an unhealthy alcohol user Time with Patient: Less than 30
== END | disposition home or self-care (01) ==
CPT/HCPCS: 99211

== ENCOUNTER → 2020-08-06 | Outpatient (CLI) | payer OTHER ==
[2020-08-07 01:47] LABS: Chol/HDL Ratio 3.44
== END | disposition home or self-care (01) ==
LOC: LABWHC1 12:30
PROVIDERS: ATTEND Internal Medicine Interventional Cardiology
DX: E78.2 Mixed hyperlipidemia (principal)
CPT/HCPCS: 36415; 80061

== ENCOUNTER 2020-08-23 08:32 | Emergency (ER) | payer OTHER ==
[2020-08-23 08:51] VITALS: RESP 18
[2020-08-23] MEDS ORDERED: guaiFENesin-DM 600/30MG 1 EACH TAB.ER.12H PO STA (09:06)
--- NOTE | 2020-08-23 09:08 | ED ---
URI HPI - General Chief Complaint: Upper Respiratory Infection Stated Complaint: Cough Time Seen by Provider: 08/23/20 08:57 Source: patient Mode of arrival: ambulatory Limitations: no limitations - History of Present Illness Initial Comments: 35-year-old female patient presents to the emergency department today for evaluation of cough and shortness of breath the last couple of days. Patient states she's has a lot of nasal congestion is having bilateral ear pain. Reports nausea no vomiting. Denies any diarrhea. Denies any rash. States she's lost smell but can still taste. No known exposures to COVID-19. Does have a history of asthma and COPD. Did use her inhalers. States she's been taking [id number] cold relief medications without relief. Patient denies any recent rash, chest pain, abdominal pain, constipation, back pain, numbness, tingling, dizziness, weakness, hematuria, dysuria, urinary urgency, urinary frequency, headache, visual changes, or any other complaints. - Related Data Home Medications Medication Instructions Recorded Confirmed Baclofen [Lioresal] 10 mg PO BID 01/15/20 08/23/20 Cetirizine HCl [Zyrtec] 10 mg PO HS 01/15/20 08/23/20 FLUoxetine HCL [PROzac] 20 mg PO HS 01/15/20 08/23/20 Levalbuterol Tartrate 1 puff INHALATION RT-QID PRN 01/15/20 08/23/20 [Levalbuterol Tartrate 45 MCG Hfa] Naproxen 500 mg PO Q12H 01/15/20 08/23/20 Prazosin HCl 2 mg PO HS 01/15/20 08/23/20 QUEtiapine FUMARATE [SEROquel] 200 mg PO HS 01/15/20 08/23/20 clonazePAM [Klonopin ODT Wafer] 0.25 mg PO BID PRN 01/15/20 08/23/20 Denta 5000 Plus 1.1% Dental Cream 1 applic PO BID 08/23/20 08/23/20 Evolocumab [Repatha Sureclick] 140 mg SQ Q14D 08/23/20 08/23/20 Hydrocodone/Acetaminophen [[place] 1 tab PO Q12H PRN 08/23/20 08/23/20 5-325] QUEtiapine [SEROquel] 100 mg PO HS 08/23/20 08/23/20 Salmeterol Xinafoate [Serevent 1 puff INHALATION RT-BID 08/23/20 08/23/20 Diskus] Tiotropium [place] [Spiriva] 1 cap INHALATION RT-DAILY 08/23/20 08/23/20 lamoTRIgine [LaMICtal] 300 mg PO DAILY 08/23/20 08/23/20 Previous Rx's Medication Instructions Recorded guaiFENesin-DM 600/30MG [Mucinex 2 each PO Q12HR PRN #20 tab.er.12h 08/23/20 Dm] predniSONE 50 mg PO DAILY #5 tablet 08/23/20 Allergies Allergy/AdvReac Type Severity Reaction Status Date / Time cephalexin [From Keflex] Allergy Rash/Hives Verified 08/23/20 09:57 Iodinated Contrast Media Allergy Rash/Hives Verified 08/23/20 09:57 [Iodinated Contrast Media - IV Dye] ketorolac [From Toradol] Allergy Rash/Hives Verified 08/23/20 09:57 tramadol [From Ultram] AdvReac Intermediate Abdominal Verified 08/23/20 09:57 Pain Review of Systems ROS Statement: Those systems with pertinent positive or pertinent negative responses have been documented in the HPI. ROS Other: All systems not noted in ROS Statement are negative. Past Medical History Past Medical History: Asthma, GERD/Reflux, Hyperlipidemia Additional Past Medical History / Comment(s): BACK PAIN. History of Any Multi-Drug Resistant Organisms: None Reported Past Surgical History: Back Surgery, Cholecystectomy, Hernia Repair Additional Past Surgical History / Comment(s): Kristopher fundoplasty, back surgery X2, repair of recurrent paraesophageal hiatal hernia X2. Past Anesthesia/Blood Transfusion Reactions: Motion Sickness, Postoperative Nausea & Vomiting (PONV) Additional Past Anesthesia/Blood Transfusion Reaction / Comment(s): Emotional coming out of anesthesia. Past Psychological History: Anxiety, Bipolar, Depression Smoking Status: Former smoker Past Alcohol Use History: None Reported Past Drug Use History: Marijuana - Past Family History Mother Family Medical History: No Reported History General Exam Limitations: no limitations General appearance: alert, in no apparent distress, other (This is a well- developed, well-nourished adult female patient in no acute distress. Vital signs upon presentation are temperature 98.0F, pulse 73, respirations 18, blood pressure 159/92, pulse ox 98% on room air.) Eye exam: Present: normal appearance, PERRL, EOMI. Absent: scleral icterus, conjunctival injection, periorbital swelling ENT exam: Present: normal exam, normal oropharynx, mucous membranes moist, TM's normal bilaterally Respiratory exam: Present: wheezes (coarse wheezing noted in the posterior lung field). Absent: respiratory distress, rales, rhonchi, stridor Cardiovascular Exam: Present: regular rate, normal rhythm, normal heart sounds. Absent: systolic murmur, diastolic murmur, rubs, gallop, clicks GI/Abdominal exam: Present: soft, normal bowel sounds. Absent: distended, tenderness, guarding, rebound, rigid Neurological exam: Present: alert, oriented X3, CN II-XII intact Psychiatric exam: Present: normal affect, normal mood Skin exam: Present: warm, dry, intact, normal color. Absent: rash Course Vital Signs 08/23/20 08:49 Temperature 98.0 F Pulse Rate 73 Respiratory 18 Rate Blood Pressure 159/92 O2 Sat by Pulse 98 Oximetry Medical Decision Making - Medical Decision Making 35-year-old female patient presents to the emergency department today for evaluation of cough and shortness of breath. Physical examination does reveal posterior wheezing. Oxygen saturation vital signs are normal. Chest x-ray is negative. She did test negative for COVID-19. I did discuss findings and results with her. She does have a history of asthma we will start her on steroids, she does have Pro Air at home. She is instructed to follow-up the primary care physician for recheck in 1-2 days. Return parameters were discussed in detail. He verbalizes understanding and agrees with this plan. Attending is Dr. Davis. - Lab Data Lab Results 08/23/20 Range/Units 09:24 Coronavirus (PCR) Not Detected (Not Detectd) - Radiology Data Radiology results: report reviewed, image reviewed 1 view xray of the chest is obtained, report was reviewed in its entirety, impression by Dr. Ray shows no acute process. Disposition Clinical Impression: Acute bronchitis Disposition: HOME SELF-CARE Condition: Good Instructions (If sedation given, give patient instructions): Upper Respiratory Infection (ED), Acute Bronchitis (ED) Additional Instructions: Take medications as directed. Complete steroids in full. Follow-up through primary care physician for recheck in 1-2 days. Return to the emergency department for any new, worsening, or concerning symptoms. Prescriptions: guaiFENesin-DM 600/30MG [Mucinex Dm] 2 each PO Q12HR PRN #20 tab.er.12h PRN Reason: Cough predniSONE 50 mg PO DAILY #5 tablet Is patient prescribed a controlled substance at d/c from ED?: No Referrals: Elaina Dolan MD [Primary Care Provider] - 1-2 days Time of Disposition: 10:35
--- NOTE | 2020-08-23 09:36 | XR ---
EXAMINATION TYPE: XR chest 1V DATE OF EXAM: 08/23/2020 COMPARISON: 06/18/2016 HISTORY: Cough TECHNIQUE: Single frontal view of the chest is obtained. FINDINGS: There is no focal air space opacity, pleural effusion, or pneumothorax seen. The cardiac silhouette size is within normal limits. The osseous structures are intact. IMPRESSION: 1. No acute process.
[2020-08-23] MEDS ORDERED: predniSONE 50 MG TAB PO STA (10:34)
[2020-08-23 10:54] VITALS: BP 130/88; PULSE 85; TEMP 98.1
== END 2020-08-23 10:54 | disposition home or self-care (01) ==
LOC: EC 08:32
DX: J20.9 Acute bronchitis, unspecified (principal); J44.0 Chronic obstructive pulmonary disease with (acute) lower respiratory infection; F41.9 Anxiety disorder, unspecified; K21.9 Gastro-esophageal reflux disease without esophagitis; Z79.1 Long term (current) use of non-steroidal anti-inflammatories (NSAID); Z79.52 Long term (current) use of systemic steroids; Z87.891 Personal history of nicotine dependence; Z79.899 Other long term (current) drug therapy; F12.90 Cannabis use, unspecified, uncomplicated
CPT/HCPCS: 87635; 71045; 99285; J7512

== ENCOUNTER 2020-09-03 08:48 | Day surgery (SDC) | payer OTHER ==
[2020-09-02 08:23] VITALS: BMI 32.6
[2020-09-03 09:18] VITALS: TEMP 98.4
[2020-09-03] MEDS ORDERED: ONDANSETRON 4 MG/2 ML VIAL ONE (09:58)
[2020-09-03] MEDS ORDERED: fentaNYL (PF) 50 MCG/ML 2 ML AMP ONE (09:58)
[2020-09-03] MEDS ORDERED: MIDAZOLAM 2 MG/2 ML VIAL ONE (09:58)
[2020-09-03] MEDS ORDERED: ROPIVACAINE 5MG/ML 20ML VIAL ONE (10:00)
--- NOTE | 2020-09-03 10:41 | P.PCN ---
Date of Procedure: 09/03/20 Procedure(s) Performed: PREOPERATIVE DIAGNOSIS: 1-Lumbar Spondylosis with Facet Arthropathy without myelopathy. 2- Lumber degenerative disc disease. POSTOPERATIVE DIAGNOSIS: 1- Lumbar Spondylosis with Facet Arthropathy without myelopathy. 2- Lumber degenerative disc disease. PROCEDURES : Bilateral Radiofrequency thermocoagulation, L3 , L4 , and L5 medial branch, with fluoroscopic guidance (fluoroscopy images available in the radiology department) ( to denervate the facet joint at L4-5 ,and L5-S1 levels ). ANESTHESIA: monitered anesthesia care as per anesthesia department. EBL: Minimal PROCEDURE INDICATION: The patient with low back pain secondary to lumbar facet arthropathy who had more than 50% relief of her pain with previous diagnostic lumbar medial branch block with bupivacaine. PROCEDURE DESCRIPTION / TECHNIQUE: The patient was seen and identified in the preoperative area. Risks, benefits, complications, including but not limited to risk of infection ,bleeding , allergic reactions to the medications and no complete pain releife , and alternatives were discussed with the patient, the patient agreed to proceed with the procedure and signed the consent. IV was started. Vital signs remained stable throughout the procedure. Patient was taken to the OR and time out was completed. The patient was placed in the prone position on the procedure table. The lumber area was prepped and draped in the usual sterile fashion. . Vital signs were closely monitored during the procedure .IV sedation was used during the procedure to decrease patients anxiety. Using AP and then oblique fluoroscopy, the ``eye of the Shay dog corresponding to the connection between the superior and transverse articular processes of right L3, L4, and L5 were identified, marked, and localized with 1% lidocaine. Subsequently, a 18 -kj ( VENUM ) radiofrequency cannula with a 10-mm active tip was advanced guided by fluoroscopy to each of the``eyes of the Shay dog at right L3, L4, and L5. Each site then underwent sensory testing at 50 Hz and 0 to 1 volt and motor testing at 2.5 Hz and 0 to 3 volt with local stimulation, but no radicular symptoms down the legs. Thereafter each sites underwent radiofrequency thermocoagulation at 80 degrees celsius for 90 seconds after injecting 0.5 ml of PF Ropivacaine 1ml, then after the thermocoagulation done , 1 ml of the block solution containing 3 ml of Ropivacaine 0.5% was injected at the right L3 , L4 , and L5 , levels after negative aspiration of CSF and blood and with no paresthesias. Cannulas were retracted while injecting lidocaine 1% until the needle is out. The same procedure was repeated at the level of Left L3, L4, and L5 levels. At the end of the procedure, the skin was cleansed and bandages were applied. COMPLICATIONS: No acute complications. DISPOSITION / PLANS: The patient was placed in a supine position and transferred to the recovery area in a stable condition for observation and was discharged from the recovery room after meeting discharge criteria. Home discharge instructions given to the patient by the staff. The patient was reexamined prior to discharge. The patient will schedule a follow up in the clinic in 2-4 weeks. note= I did not use any steroid for the procedure, because she COVID vaccine recently.
[2020-09-03] MEDS ORDERED: IV FLUID CONTINUATION 1,000 ML IV ONE (10:43)
[2020-09-03 10:47] VITALS: RESP 16
--- NOTE | 2020-09-03 10:49 | FL ---
Fluoroscopy INDICATION: Pain FINDINGS: Fluoroscopy time: 31 seconds. Images obtained: 6. IMPRESSIONS: 1. Documentation of fluoroscopy.
[2020-09-03 11:01] VITALS: BP 135/87; PULSE 64
== END 2020-09-03 11:20 | disposition home or self-care (01) ==
LOC: ORPAIN 08:48
PROVIDERS: ATTEND Specialist
DX: M47.816 Spondylosis without myelopathy or radiculopathy, lumbar region (principal); M51.36 Other intervertebral disc degeneration, lumbar region; E78.5 Hyperlipidemia, unspecified; J45.909 Unspecified asthma, uncomplicated; K21.9 Gastro-esophageal reflux disease without esophagitis; Z98.890 Other specified postprocedural states; Z88.1 Allergy status to other antibiotic agents; Z88.6 Allergy status to analgesic agent; Z88.5 Allergy status to narcotic agent; Z91.041 Radiographic dye allergy status; Z87.891 Personal history of nicotine dependence; Z79.899 Other long term (current) drug therapy; Z79.891 Long term (current) use of opiate analgesic; Z91.89 Other specified personal risk factors, not elsewhere classified; Z87.898 Personal history of other specified conditions
CPT/HCPCS: 81025; 64635; 64636; J2250; J2405; J3010; J2795

== ENCOUNTER → 2020-09-20 | Outpatient (CLI) | payer OTHER ==
[2020-09-20 11:13] VITALS: BP 131/82; PULSE 97; RESP 18; TEMP 97.5
--- NOTE | 2020-09-20 11:18 | P.PN ---
Subjective Progress Note Date: 09/20/20 Smiley is a 35-year-old female who presents today for follow-up secondary to her chronic low back pain. She has a history of low back surgery. We received performed a radiofrequency ablation of the lumbar spine. She reports greater than 50% relief of the low back and lower extremity pain. She reports that the pains in the upper parts of the legs over the buttocks have improved after the radiofrequency ablation. She still has some difficulty standing holding heavy objects. 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 She is still able to walk and participate in her daily activities. She uses pain medication as needed. She expressed some concerns about using pain medications chronically. She expressed that she certainly understands this tolerates the medication really does not want to increase her pain medications. I've explained to the medication dosage will never be enough, especially area on gauge. Using medications regularly will almost certainly related to tolerance to the pain medication. I recommended that she skipped doses and skip days and only use it as needed. She should trial acetaminophen and NSAIDs as tolerated. Also spend that she has a hernia over the right abdomen and maybe one a left which she may have to have surgery to correct Review of Systems: Denies any New chest pain, short of breath, Nausea/vomitting, abdominal pain, bowel or bladder incontinence, or any overt new neurologic symptoms in his upper or lower extremities. Objective - Vital Signs Vital signs: Vital Signs Temp 97.5 F L 09/20/20 11:12 Pulse 97 09/20/20 11:12 Resp 18 09/20/20 11:12 BP 131/82 09/20/20 11:12 Pulse Ox 99 09/20/20 11:12 - Exam General: Awake and alert oriented 3 no distress Respiratory exam: No audible wheezing no accessory muscle usage Cervical spine: Normal alignment, normal range of motion Lumbar spine: Obese midline, loss of lordosis. Surgical scar well-healed. Lower extremity strength normal Sacroiliac joints: Nontender to palpation, THAO is negative, [place] negative Neuro exam: Normal sensation in bilateral upper extremities, deep tendon reflexes are 2+ bilateral upper extremities. Normal sensation in bilateral lower extremities. Deep tendon reflexes are 2+ in lower extremities Psych exam: Cooperative, appropriate mood Assessment and Plan Assessment: #1 lumbar spondylosis without myelopathy #2 obesity #3. Opioid Dependence Plan: At this point we'll continue with the current medications. I discussed with the patient these medications will not improve her overall function likely just helped temporarily. I explained that increasing the dose or the frequency will not improve her pain and only lead to further tolerance. She understands that and verbally acknowledge that. She is happy with the current medications. We will schedule the procedures as needed moving forward. She may be having hernia surgery and if the doctor prescribes any postoperative pain medications would be okay to take them as needed as prescribed by the surgeon. She should not use both medications as this may increase her risk for respiratory depression and . Urine drug screen will be taken on today's visit. I have spent 23 minutes on patient care today. The time was used to review the medical records including relevant urine studies and Prescription history (MAPs), review of the available imaging, evaluation and examination of the patient, coordination of care with the medical staff and if applicable referring physicians, as well as creation of the medical record. Maps were checked and appropriate, opioid start talking form is on file and updated, urine drug screens of been appropriate and have been reviewed.
== END ==
LOC: PNWHC3 10:51
PROVIDERS: ATTEND Hospitalist
DX: M47.816 Spondylosis without myelopathy or radiculopathy, lumbar region (principal); F11.20 Opioid dependence, uncomplicated; E66.9 Obesity, unspecified; Z68.32 Body mass index [BMI] 32.0-32.9, adult; Z87.891 Personal history of nicotine dependence
CPT/HCPCS: 80307; G0482; G0463; 99212

== ENCOUNTER → 2020-10-15 | Outpatient (CLI) | payer OTHER ==
--- NOTE | 2020-10-16 10:20 | CT ---
EXAMINATION TYPE: CT abdomen pelvis w con DATE OF EXAM: 10/15/2020 HISTORY: epigastric pain, hx of hernia CT DLP: 1384.8mGycm Automated Exposure Control for Dose Reduction was Utilized. CONTRAST: CT scan of the abdomen and pelvis is performed without oral but with IV Contrast, patient injected wi th 100 mL of Isovue 300. COMPARISON: CT abdomen and pelvis June 19, 2016 FINDINGS: LUNG BASES: No significant abnormality is appreciated. LIVER/GB: Cholecystectomy clips are redemonstrated. PANCREAS: No significant abnormality is seen. SPLEEN: Small inferior central splenule redemonstrated. ADRENALS: No significant abnormality is seen. KIDNEYS: Symmetric cortical measuring uptake and excretion without hydronephrosis seen bilaterally. BOWEL: Small bowel feces sign distal ileum. No suspicious small or large bowel dilatation. Findings c onsistent with delayed passage of ingested material to colonic level. Evidence of recent fundoplicati on surgery at gastroesophageal junction redemonstrated. No recurrent hiatal hernia. UTERUS/ADNEXA: Anteverted uterus. Central metallic IUD. Ovaries within normal limits in size. Scatter ed left-sided pelvic phleboliths. LYMPH NODES: No greater than 1cm abdominal or pelvic lymph nodes are appreciated. OSSEOUS STRUCTURES: Moderate disc space narrowing and vacuum disc phenomenon L4-L5 and L5-S1 levels. OTHER: No significant additional abnormality is seen. IMPRESSION: No significant new or acute finding is identified.
== END | disposition home or self-care (01) ==
LOC: RADCTMAIN 18:06
PROVIDERS: ATTEND Family Medicine
DX: R10.13 Epigastric pain (principal)
CPT/HCPCS: 74177; Q9967

== ENCOUNTER 2020-12-15 08:04 | Day surgery (SDC) | payer OTHER ==
[2020-12-14 08:16] VITALS: BMI 33.6
[~2020-12-15 08:04] MED LIST changes: +LIDOCAINE 1% (10MG/ML) FOR IV START INTRADERMA PRN
--- NOTE | 2020-12-15 08:46 | P.GSHP ---
History of Present Illness H&P Date: 12/15/20 CHIEF COMPLAINT: GERD and colon screen HISTORY OF PRESENT ILLNESS: The patient is a 35-year-old female who presents with gastroesophageal reflux disease and change in bowel habits. Upper and lower endoscopy were offered for further evaluation and management. PAST MEDICAL HISTORY: Please see list. PAST SURGICAL HISTORY: Please see list. MEDICATIONS: Please see list. ALLERGIES: Please see list. SOCIAL HISTORY: No illicit drug use FAMILY HISTORY: No reports of Crohn disease or ulcerative colitis. REVIEW OF ORGAN SYSTEMS: CONSTITUTIONAL: No reports of fevers or chills. GI: Denies any blood in stools or constipation. PHYSICAL EXAM: VITAL SIGNS: Stable GENERAL: Well-developed pleasant in no acute distress. HEENT: No scleral icterus. Extraocular movements grossly intact. Moist buccal mucosa. NECK: Supple without lymphadenopathy. CHEST: Unlabored respirations. Equal bilateral excursions. CARDIOVASCULAR: Regular rate and rhythm. Distal 2+ pulses. ABDOMEN: Soft, nondistended. MUSCULOSKELETAL: No clubbing, cyanosis, or edema. ASSESSMENT: 1. Gastroesophageal reflux disease 2. Change in bowel habits. PLAN: 1. Recommend proceeding with an upper and lower endoscopy Past Medical History Past Medical History: Asthma, GERD/Reflux, Hyperlipidemia Additional Past Medical History / Comment(s): BACK PAIN. History of Any Multi-Drug Resistant Organisms: None Reported Past Surgical History: Back Surgery, Cholecystectomy, Hernia Repair Additional Past Surgical History / Comment(s): Kristopher fundoplasty, back surgery X2, repair of recurrent paraesophageal hiatal hernia X2. Past Anesthesia/Blood Transfusion Reactions: Motion Sickness, Postoperative Nausea & Vomiting (PONV) Additional Past Anesthesia/Blood Transfusion Reaction / Comment(s): Emotional coming out of anesthesia. Smoking Status: Former smoker - Past Family History Mother Family Medical History: No Reported History Medications and Allergies Home Medications Medication Instructions Recorded Confirmed Type Baclofen [Lioresal] 10 mg PO BID 01/15/20 12/14/20 History Cetirizine HCl [Zyrtec] 10 mg PO HS 01/15/20 12/14/20 History FLUoxetine HCL [PROzac] 20 mg PO HS 01/15/20 12/14/20 History Levalbuterol Tartrate 1 puff INHALATION RT-QID PRN 01/15/20 12/14/20 History [Levalbuterol Tartrate 45 MCG Hfa] Naproxen 500 mg PO Q12H PRN 01/15/20 12/14/20 History Prazosin HCl 2 mg PO HS 01/15/20 12/14/20 History QUEtiapine FUMARATE [SEROquel] 200 mg PO HS 01/15/20 12/14/20 History clonazePAM [Klonopin ODT Wafer] 0.25 mg PO BID PRN 01/15/20 12/14/20 History Denta 5000 Plus 1.1% Dental Cream 1 applic PO BID 08/23/20 12/14/20 History Evolocumab [Repatha Sureclick] 140 mg SQ Q14D 08/23/20 12/14/20 History Hydrocodone/Acetaminophen [[place] 1 tab PO Q12H PRN 08/23/20 12/14/20 History 5-325] QUEtiapine [SEROquel] 100 mg PO HS 08/23/20 12/14/20 History Salmeterol Xinafoate [Serevent 1 puff INHALATION RT-BID 08/23/20 12/14/20 History Diskus] Tiotropium [place] [Spiriva] 1 cap INHALATION RT-DAILY 08/23/20 12/14/20 History lamoTRIgine [LaMICtal] 300 mg PO QAM 08/23/20 12/14/20 History Allergies Allergy/AdvReac Type Severity Reaction Status Date / Time cephalexin [From Keflex] Allergy Rash/Hives Verified 12/14/20 08:10 Iodinated Contrast Media Allergy Rash/Hives Verified 12/14/20 08:10 [Iodinated Contrast Media - IV Dye] ketorolac [From Toradol] Allergy Rash/Hives Verified 12/14/20 08:10 tramadol [From Ultram] AdvReac Intermediate Abdominal Verified 12/14/20 08:10 Pain, nausea/wretching
[2020-12-15 08:55] VITALS: RESP 16; TEMP 97.5
[2020-12-15] MEDS ORDERED: PROPOFOL 10 MG/ML 20 ML VIAL IV ONE (09:42)
[2020-12-15] MEDS ORDERED: LIDOCAINE 1% INJ 10MG/ML (20 ML MDV) ONE (09:42)
--- NOTE | 2020-12-15 09:56 | P.PCN ---
Date of Procedure: 12/15/20 Description of Procedure: PREOPERATIVE DIAGNOSIS: Gastroesophageal reflux disease. History of fundoplasty POSTOPERATIVE DIAGNOSIS: Gastroesophageal reflux disease. History of fundoplasty Gastritis OPERATION: Esophagogastroduodenoscopy with biopsies along antrum. SURGEON: Andra Epstein MD ANESTHESIA: MAC. INDICATIONS: The patient is a 35-year-old female who presents with a history of reflux disease. Benefits and risks of the procedure were described. Informed consent was obtained. DESCRIPTION: The patient was brought into the endoscopy suite and laid in the left lateral decubitus position. An Olympus gastroscope was passed along the posterior oropharynx down to the distal esophagus where the squamocolumnar junction was encountered at 32 cm from the incisors. The stomach was entered and no bile reflux was found. Additional findings are listed below. Biopsies with cold forceps were obtained of the antrum. The first through third portion of the duodenum was examined and unremarkable. Retroflexion of the scope confirmed Hill grade 1 lower esophageal valve. The squamocolumnar junction demonstrated LA grade A erosive esophagitis. The stomach was desufflated. The patient tolerated the procedure well. FINDINGS: Squamocolumnar junction 32 cm from the incisors. Diaphragmatic hiatus at 33 cm. Hiatal hernia, 1 cm Hill grade 1 lower esophageal valve. LA grade A erosive esophagitis. No active duodenitis. Chronic gastritis Fundoplasty intact. RECOMMENDATIONS: Upper endoscopy as needed.
--- NOTE | 2020-12-15 10:12 | P.PCN ---
Date of Procedure: 12/15/20 Description of Procedure: PREOPERATIVE DIAGNOSIS: Abnormal stool function Change in bowel habits POSTOPERATIVE DIAGNOSIS: Microscopic colitis Scattered diverticulosis OPERATION: Colonoscopy to the cecum, ileocecal valve and appendiceal orifice. Colonoscopy with random cold forceps biopsies for microscopic colitis SURGEON: Andra Epstein MD. ANESTHESIA: MAC. INDICATIONS: The patient is a 35-year-old female who presents with altered stools including change in bowel habits. Benefits and risks were described and informed consent was obtained. DESCRIPTION OF PROCEDURE: The patient had undergone Suprep. The patient had been brought into the operating room and laid in the left lateral decubitus position. After adequate intravenous sedation, the rectum was examined with 2% lidocaine jelly. No external hemorrhoids were encountered. The rectal tone was within normal limits. No lesions were palpated in the rectal vault. An Olympus colonoscope was advanced until the cecum, ileocecal valve and appendiceal orifice were clearly viewed. The prep was excellent. Scattered diverticulosis was encountered. No colonic polyps were found. Cold forceps biopsies randomly were obtained for microscopic colitis. Retroflexion of the scope demonstrated grade 1 internal hemorrhoids without active bleeding or inflammation. The colon was desufflated. The patient had tolerated the procedure well. Withdrawal time was over 6 minutes. FINDINGS: Aronchick preparation quality scale 1 (1-5) Internal hemorrhoids, grade 1 No external prolapsed hemorrhoids. No arteriovenous malformations. No adenomatous polyps. Scattered diverticulosis Cold forceps biopsies obtained for microscopic colitis RECOMMENDATIONS: Lower endoscopy as needed Plan - Discharge Summary Discharge Rx Participant: No New Discharge Prescriptions: Continue QUEtiapine FUMARATE [SEROquel] 200 mg PO HS Prazosin HCl 2 mg PO HS Naproxen 500 mg PO Q12H PRN PRN Reason: Pain Levalbuterol Tartrate [Levalbuterol Tartrate 45 MCG Hfa] 1 puff INHALATION RT-QID PRN PRN Reason: Shortness Of Breath clonazePAM [Klonopin ODT Wafer] 0.25 mg PO BID PRN PRN Reason: Anxiety FLUoxetine HCL [PROzac] 20 mg PO HS Cetirizine HCl [Zyrtec] 10 mg PO HS Baclofen [Lioresal] 10 mg PO BID Tiotropium [place] [Spiriva] 1 cap INHALATION RT-DAILY lamoTRIgine [LaMICtal] 300 mg PO QAM QUEtiapine [SEROquel] 100 mg PO HS Denta 5000 Plus 1.1% Dental Cream 1 applic PO BID Evolocumab [Repatha Sureclick] 140 mg SQ Q14D Hydrocodone/Acetaminophen [[place] 5-325] 1 tab PO Q12H PRN PRN Reason: Pain Salmeterol Xinafoate [Serevent Diskus] 1 puff INHALATION RT-BID Discharge Medication List Baclofen [Lioresal] 10 mg PO BID 01/15/20 [History] Cetirizine HCl [Zyrtec] 10 mg PO HS 01/15/20 [History] FLUoxetine HCL [PROzac] 20 mg PO HS 01/15/20 [History] Levalbuterol Tartrate [Levalbuterol Tartrate 45 MCG Hfa] 1 puff INHALATION RT- QID PRN 01/15/20 [History] Naproxen 500 mg PO Q12H PRN 01/15/20 [History] Prazosin HCl 2 mg PO HS 01/15/20 [History] QUEtiapine FUMARATE [SEROquel] 200 mg PO HS 01/15/20 [History] clonazePAM [Klonopin ODT Wafer] 0.25 mg PO BID PRN 01/15/20 [History] Denta 5000 Plus 1.1% Dental Cream 1 applic PO BID 08/23/20 [History] Evolocumab [Repatha Sureclick] 140 mg SQ Q14D 08/23/20 [History] Hydrocodone/Acetaminophen [[place] 5-325] 1 tab PO Q12H PRN 08/23/20 [History] QUEtiapine [SEROquel] 100 mg PO HS 08/23/20 [History] Salmeterol Xinafoate [Serevent Diskus] 1 puff INHALATION RT-BID 08/23/20 [History] Tiotropium [place] [Spiriva] 1 cap INHALATION RT-DAILY 08/23/20 [History] lamoTRIgine [LaMICtal] 300 mg PO QAM 08/23/20 [History] Follow up Appointment(s)/Referral(s): Andra Epstein MD [STAFF PHYSICIAN] - 12/21/20 Patient Instructions/Handouts: Gastritis (DC), *Surgery [facility] - (Anesthesia) Endoscopy Discharge Instructions, Colonoscopy (DC) Discharge Disposition: HOME SELF-CARE
[2020-12-15 10:31] VITALS: BP 129/85; PULSE 67
== END 2020-12-15 10:57 | disposition home or self-care (01) ==
LOC: ORWHC2ENDO 08:04
PROVIDERS: ATTEND Surgery Plastic and Reconstructive Surgery
DX: K29.50 Unspecified chronic gastritis without bleeding (principal); Z98.890 Other specified postprocedural states; K22.10 Ulcer of esophagus without bleeding; K44.9 Diaphragmatic hernia without obstruction or gangrene; K63.5 Polyp of colon; K57.30 Diverticulosis of large intestine without perforation or abscess without bleeding; K64.0 First degree hemorrhoids; J45.909 Unspecified asthma, uncomplicated; K21.9 Gastro-esophageal reflux disease without esophagitis; E78.5 Hyperlipidemia, unspecified; Z90.49 Acquired absence of other specified parts of digestive tract; Z87.891 Personal history of nicotine dependence; Z79.899 Other long term (current) drug therapy; Z88.5 Allergy status to narcotic agent; Z88.1 Allergy status to other antibiotic agents; Z91.041 Radiographic dye allergy status; Z79.51 Long term (current) use of inhaled steroids
CPT/HCPCS: 81025; 88305; 45380; 43239; J2001; J2704

== ENCOUNTER → 2020-12-20 | Outpatient (CLI) | payer OTHER ==
[2020-12-20 08:26] VITALS: BP 119/86; PULSE 83; RESP 16; TEMP 97.6
--- NOTE | 2020-12-20 08:44 | P.PN ---
Subjective Progress Note Date: 12/20/20 This is a 45-year-old morbidly obese lady with history of lower back pain s tatus post 2 back surgeries. The patient received lumbar medial branch RFA recently which gave her good pain relief. She also changed her job which also decreased her activities and improved her pain. She uses clonazepam as needed for anxiety and she also uses marijuana from time to time. She also tries to avoid but she does use Linton 5 mg once a day for her pain. Patient denies new-onset weakness, bowel/bladder incontinence, or any other signs or symptoms of cauda equina syndrome. There are no signs of acute intoxication, and no indications of medication diversion or overuse. In addition to above, 13-point review of systems is also negative for chest pain, shortness of breath, changes in vision, changes in hearing, new onset weakness, abdominal pain, diarrhea, extreme fatigue, malaise, fever, skin changes, homicidal or suicidal ideation, or bowel or bladder incontinence. Vital Signs: Reviewed in EMR Gen: AAOx3, NAD HEENT: PERRLA,hearing grossly normal Pulm: resp unlabored Neck: supple, trachea midline Neuro exam of the lower extremities: Normal muscle strength Straight leg raising test: Negative bilaterally Reinaldo's test: Range of motion of the lumbar spine: Facet loading test: Positive on the lumbar area Tenderness in the paravertebral musculature: Positive on the lumbar paravertebral musculature bilaterally Neuro: CN II-XII grossly intact, Imaging: Reviewed in EMR/chart Assessment: Lumbar postlaminectomy pain syndrome Lumbar spondylosis without adenopathy Morbid obesity Occasional marijuana and benzodiazepines use Plan: 1. Explanation: Opioid and psychological risk scores were reviewed. Diagnoses, prognoses, and multiple treatment options including but not limited to physical therapy, interventional therapies, adjuvant medical therapies, narcotic medication therapies, and surgery were discussed with the patient and all questions were answered to the patient's satisfaction. 2. Opioid agreement: Signed with the patient and the patient is warned not to use opioids while driving or before driving and not to combine opioids with benzodiazepines or alcohol. 3. Counseling: The patient was counseled extensively on SMOKING CESSATION, BODY MASS INDEX, EXERCISE. Specifically, the patient was instructed regarding the importance of smoking cessation, obesity, and exercise in the context of both chronic pain and overall health. 4. Procedures: The patient may benefit from a repeat lumbar medial branch RFA in the future however her pain is under control at this point and she'll give us a call when her pain started to get worse then we can schedule her for the above- mentioned procedure. 5. Consultations: None 6. Investigations: None 7. Medications: We'll stop prescribing Linton for her. The patient understands this decision completely. 8. Disposition: Return to clinic as needed 9. Maps were reviewed and were appropriate. Objective - Vital Signs Vital signs: Vital Signs Temp 97.6 F 12/20/20 08:23 Pulse 83 12/20/20 08:23 Resp 16 12/20/20 08:23 BP 119/86 12/20/20 08:23 Pulse Ox 100 12/20/20 08:23
== END ==
LOC: PNWHC3 08:04
PROVIDERS: ATTEND Anesthesiology
DX: M96.1 Postlaminectomy syndrome, not elsewhere classified (principal); M47.816 Spondylosis without myelopathy or radiculopathy, lumbar region; E66.01 Morbid (severe) obesity due to excess calories; F12.90 Cannabis use, unspecified, uncomplicated; F13.90 Sedative, hypnotic, or anxiolytic use, unspecified, uncomplicated; Z68.32 Body mass index [BMI] 32.0-32.9, adult; Z88.1 Allergy status to other antibiotic agents; Z91.041 Radiographic dye allergy status; Z88.5 Allergy status to narcotic agent; Z88.6 Allergy status to analgesic agent
CPT/HCPCS: 99211

== ENCOUNTER → 2021-03-14 | Outpatient (CLI) | payer OTHER ==
[2021-03-14 12:59] VITALS: BP 125/84; PULSE 69; RESP 18; TEMP 98.2
--- NOTE | 2021-03-14 13:16 | P.PN ---
Subjective Progress Note Date: 03/14/21 This is a follow-up visit for this 36 years old female with a chronic history of severe low back pain patient diagnosed with lumbar spondylosis with lumbar facet arthropathy, and lumbar degenerative disc disease, more than 6 months ago we have done RFA of the medial branch lumbar area, at L4 5 and L5-S1 patient reported that she get good pain relief after an RFA and she reported that her activity of daily livings improved significantly, over the last few weeks she started complaining of severe low back pain with radiation to the right buttock and radiation to the lower extremity bilaterally she denies any motor or sensory deficit, she tried physical therapy in the past without any significant impro vement she tried chiropractors without any significant improvement, and she continued to do home exercise Objective - Vital Signs Vital signs: Vital Signs Temp 98.2 F 03/14/21 12:44 Pulse 69 03/14/21 12:44 Resp 18 03/14/21 12:44 BP 125/84 03/14/21 12:44 Pulse Ox Intake & Output 03/13/21 03/14/21 03/14/21 18:59 06:59 18:59 Weight 95.254 kg - Exam Physical Examinations : -Constitutiona : Cooperative , not in acute distress . -HEENT : nech : supple , no Lymphadenopathy , normal thyroid size . : eyes : no ptosis , no icterus, no photophobia . - neurologic : Cranial nerve II to XII intact , no focal neurological deffecit . -psychatric : alert , oriented X 3 , appropriate affect , intact judgment and insight . -Lymphatic : no Lymphadenopathy . - musculoskeltal : Lumber spine moter stegnth lower extremities ,thigh and legs 5/5 Right side , 5/5 Left side deep tendon reflexes : normal Knee Jerk , normal ankle Jerk lumber facet Loading Test =positive Right , positive Left Range of motion of the lumbar spine Flexion 30 degrees, extension 10 degrees strait leg raising test = negative bilaterally Fabere test= negative bilaterally. Sever tenderness over the Sacroiliac joint on the Right Gaenslen test= positive right . Seated flexion test= positive right . Distraction test= positive right side Sacroiliac compression test= positive Right Assessment and Plan Plan: Assessment and plan=1-Lumbar spondylosis with lumbar facet arthropathy without myelopathy. 2-lumbar degenerative disc disease. 3- Right sacroiliitis. Patient had good pain relief after the radiofrequency ablation of the medial branch which was done more than 6 months ago patient could benefit from repeat RFA medial branch lumbar area at L4 5 and L5-S1, as patient continued to have pain after the RFA then would consider doing a right-sided sacroiliac joint steroid injections. - PQRS measures = - Patient's medications are documented in the chart. -Tobacco use is negative and counseling.Given. -Patient's has not received pneumococcal vaccine. -Advanced care planning discussed, patient not eligible. -Opiate contract not signed. -Pain positive and follow-up visit/procedure is scheduled. -Patient's blood pressure measured [ 125/84 ] , and documented in the record ,and patient will follow up with the primary care. -Patient's weight was measured and body mass index [ ] above the normal limits and counseling was done. and patient instructed to follow-up with the primary care physician. -Patient was not identified as an unhealthy alcohol user Time with Patient: Less than 30
== END ==
LOC: PNWHC3 12:06
PROVIDERS: ATTEND Specialist
DX: M47.816 Spondylosis without myelopathy or radiculopathy, lumbar region (principal); M51.36 Other intervertebral disc degeneration, lumbar region; M46.1 Sacroiliitis, not elsewhere classified; Z87.891 Personal history of nicotine dependence; Z88.1 Allergy status to other antibiotic agents; Z88.5 Allergy status to narcotic agent; Z91.041 Radiographic dye allergy status
CPT/HCPCS: 99211

== ENCOUNTER → 2021-04-18 | Outpatient (CLI) | payer OTHER ==
[2021-04-18 08:55] VITALS: BP 113/77; PULSE 90; RESP 18
--- NOTE | 2021-04-18 08:59 | P.PN ---
Subjective Progress Note Date: 04/18/21 Smiley is a 36-year-old female presented to clinic today for follow-up appointment. She has a history of lumbar spondylosis and facet arthropathy without myelopathy, failed laminectomy syndrome, lumbar disc degeneration disease. September 13 she had a bilateral lumbar radiofrequency ablation at L4 5 and L5-S1. She reported after the procedure that she had greater than 80% relief for over 4 months of her back pain. However at this time she feels that her back pain is beginning to return. She describes it as a achy sensation that radiates into her groin on both sides right side is worse than left. She describes it as a constant, throbbing sensation. Pain is made worse with certain positions and excessive sitting. Pain is made better with interventions, heat, medications, and stretching. She currently takes naproxen and aspirin. 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 She denies any bowel or bladder dysfunction, saddle anesthesia, or any other red flag symptoms. She denies any adverse effects from her medication. Objective - Exam Physical Examinations : -Constitutiona : Cooperative , not in acute distress . -HEENT : nech : supple , no Lymphadenopathy , normal thyroid size . : eyes : no ptosis , no icterus, no photophobia . - neurologic : Cranial nerve II to XII intact , no focal neurological deffecit . -psychatric : alert , oriented X 3 , appropriate affect , intact judgment and insight . -Lymphatic : no Lymphadenopathy . - musculoskeltal : . Lumber spine moter stegnth lower extremities ,thigh and legs 5/5 Right side , 5/5 Left side deep tendon reflexes : normal Knee Jerk , normal ankle Jerk lumber facet Loading Test =positive Right , positive Left Range of motion of the lumbar spine Flexion 30 degrees, extension 10 degrees strait leg raising test = positive at 30 degree Fabere test= positive Right , and positive LT . Sever tenderness over the Sacroiliac joint on the Right , and Left sides Gaenslen test= positive right ,and positive left . Seated flexion test= positive right ,and positive Left . 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 Blackmon was available by phone for consultation during his visit. I have spent 24 minutes on patient care today. The time was used to review the medical records including relevant urine studies and Prescription history (MAPs), review of the available imaging, evaluation and examination of the patient, coordination of care with the medical staff and if applicable referring physicians, as well as creation of the medical record. - PQRS measures = - Patient's medications are documented in the chart. -Tobacco use is negative -Patient's has not received pneumococcal vaccine. -Advanced care planning discussed, patient not eligible. -Opiate contract not signed. -Pain positive and follow-up visit/procedure is scheduled. -Patient's blood pressure measured 113/77 , and documented in the record ,and patient will follow up with the primary care. -Patient was not identified as an unhealthy alcohol user Time with Patient: Less than 30
== END ==
LOC: PNWHC3 08:17
PROVIDERS: ATTEND Student in an Organized Health Care Education/Training Program
DX: M47.816 Spondylosis without myelopathy or radiculopathy, lumbar region (principal); M96.1 Postlaminectomy syndrome, not elsewhere classified; M53.3 Sacrococcygeal disorders, not elsewhere classified; Z88.1 Allergy status to other antibiotic agents; Z91.041 Radiographic dye allergy status; Z88.6 Allergy status to analgesic agent; Z87.891 Personal history of nicotine dependence
CPT/HCPCS: 99211

== ENCOUNTER 2021-12-08 06:40 | Emergency (ER) | payer OTHER ==
[2021-12-08 06:47] VITALS: TEMP 97.6
--- NOTE | 2021-12-08 06:54 | ED ---
Lower Extremity Injury HPI - General Chief Complaint: Extremity Injury, Lower Stated Complaint: fall, left ankle injury Time Seen by Provider: 12/08/21 06:43 Source: patient, RN notes reviewed Mode of arrival: ambulatory Limitations: no limitations - History of Present Illness Initial Comments: This is a 36-year-old female presents emergency Department chief complaint of left ankle injury. She states this happened 8 days ago, states that her ankle rolled outward. Patient states that she has pain that is on the lateral portion of her left ankle denies any paresthesias. She states she is able to ambulate, still remains to be sore. Denies any paresthesias no prior surgeries no other traumas noted - Related Data Home Medications Medication Instructions Recorded Confirmed Baclofen [Lioresal] 10 mg PO DAILY 01/15/20 06/15/21 Cetirizine HCl [Zyrtec] 10 mg PO HS 01/15/20 06/15/21 FLUoxetine HCL [PROzac] 20 mg PO HS 01/15/20 06/15/21 Levalbuterol Tartrate 1 puff INHALATION RT-QID PRN 01/15/20 06/15/21 [Levalbuterol Tartrate 45 MCG Hfa] Naproxen 500 mg PO Q12H PRN 01/15/20 06/15/21 Prazosin HCl 2 mg PO HS 01/15/20 06/15/21 QUEtiapine FUMARATE [SEROquel] 200 mg PO HS 01/15/20 06/15/21 clonazePAM [Klonopin ODT Wafer] 0.25 mg PO BID PRN 01/15/20 06/15/21 Evolocumab [Repatha Sureclick] 140 mg SQ Q14D 08/23/20 06/15/21 QUEtiapine [SEROquel] 100 mg PO HS 08/23/20 06/15/21 Salmeterol Xinafoate [Serevent 1 puff INHALATION RT-BID 08/23/20 06/15/21 Diskus] OXcarbazepine [Trileptal] 300 mg PO BID 06/02/21 06/15/21 Ergocalciferol [Vitamin D2 (1250 50,000 unit PO WEEKLY 06/15/21 06/15/21 Mcg = 24469 Iu)] Allergies Allergy/AdvReac Type Severity Reaction Status Date / Time cephalexin [From Keflex] Allergy Rash/Hives Verified 12/08/21 06:47 Iodinated Contrast Media Allergy Rash/Hives Verified 12/08/21 06:47 [Iodinated Contrast Media - IV Dye] ketorolac [From Toradol] Allergy Rash/Hives Verified 12/08/21 06:47 tramadol [From Ultram] AdvReac Intermediate Abdominal Verified 12/08/21 06:47 Pain, nausea/wretching Review of Systems ROS Statement: Those systems with pertinent positive or pertinent negative responses have been documented in the HPI. ROS Other: All systems not noted in ROS Statement are negative. Past Medical History Past Medical History: Asthma, GERD/Reflux, Hyperlipidemia Additional Past Medical History / Comment(s): BACK PAIN. History of Any Multi-Drug Resistant Organisms: None Reported Past Surgical History: Back Surgery, Cholecystectomy, Hernia Repair Additional Past Surgical History / Comment(s): Kristopher fundoplasty, back surgery X2, repair of recurrent paraesophageal hiatal hernia X2. Past Anesthesia/Blood Transfusion Reactions: Motion Sickness, Postoperative Nausea & Vomiting (PONV) Additional Past Anesthesia/Blood Transfusion Reaction / Comment(s): Emotional coming out of anesthesia. Past Psychological History: Anxiety, Bipolar, Depression Smoking Status: Former smoker Past Alcohol Use History: None Reported Past Drug Use History: Marijuana - Past Family History Mother Family Medical History: No Reported History General Exam Limitations: no limitations General appearance: alert, in no apparent distress Head exam: Present: atraumatic, normocephalic, normal inspection Eye exam: Present: normal appearance, PERRL, EOMI. Absent: scleral icterus, conjunctival injection, periorbital swelling Respiratory exam: Present: normal lung sounds bilaterally. Absent: respiratory distress, wheezes, rales, rhonchi, stridor Cardiovascular Exam: Present: regular rate, normal rhythm, normal heart sounds. Absent: systolic murmur, diastolic murmur, rubs, gallop, clicks Extremities exam: Present: other (Tenderness along the lateral portion left ankle, mild swelling noted no distal foot tenderness there is tenderness along the left lateral leg) Neurological exam: Present: reflexes normal. Absent: motor sensory deficit Skin exam: Present: warm, dry, intact, normal color. Absent: rash Course Vital Signs 12/08/21 06:42 Temperature 97.6 F Pulse Rate 92 Respiratory 22 Rate Blood Pressure 117/73 O2 Sat by Pulse 99 Oximetry Medical Decision Making - Medical Decision Making X-rays negative for acute fracture. Patient has left ankle sprain. She was placed in stirrup Aircast with continuation of conservative treatment and follow-up with orthopedics. Disposition Clinical Impression: Left ankle sprain Disposition: HOME SELF-CARE Condition: Stable Instructions (If sedation given, give patient instructions): Ankle Sprain (ED) Additional Instructions: Please return to the Emergency Department if symptoms worsen or any other concerns. Is patient prescribed a controlled substance at d/c from ED?: No Referrals: Azucena Kwok PAC [Primary Care Provider] - 1-2 days Chon Yanes MD [STAFF PHYSICIAN] - 1-2 days Time of Disposition: 07:31
--- NOTE | 2021-12-08 07:53 | XR ---
EXAMINATION TYPE: XR ankle complete LT DATE OF EXAM: 12/08/2021 7:03 AM INDICATION: Patient age:Female; 36 years old; Reason for study: pain; [facility]. COMPARISON: None TECHNIQUE: The left ankle is imaged in AP, oblique, and lateral projections. FINDINGS: There is no evidence of acute osseous pathology. The joint spaces are well-preserved without evidenc e of subluxation or dislocation. Kager's fat pad is intact. Benign-appearing calcifications the anter ior subcutaneous tissues of vogel. No significant soft tissue swelling. No radiopaque foreign bodies a re identified. IMPRESSION: No acute osseous abnormality.
[2021-12-08 08:05] VITALS: BP 100/66; PULSE 69; RESP 18
== END 2021-12-08 08:06 | disposition home or self-care (01) ==
LOC: EC 06:40
DX: S93.402A Sprain of unspecified ligament of left ankle, initial encounter (principal); J45.909 Unspecified asthma, uncomplicated; E78.5 Hyperlipidemia, unspecified; K21.9 Gastro-esophageal reflux disease without esophagitis; Z79.83 Long term (current) use of bisphosphonates; Z87.891 Personal history of nicotine dependence; Z88.8 Allergy status to other drugs, medicaments and biological substances; Z91.041 Radiographic dye allergy status; Z88.3 Allergy status to other anti-infective agents; W19.XXXA Unspecified fall, initial encounter
CPT/HCPCS: 73610; 99284; L4350

== ENCOUNTER → 2023-08-31 | Outpatient (CLI) | payer OTHER | END | disposition home or self-care (01) | LOC: LABWHC1 09:17 | PROVIDERS: ATTEND Neurological Surgery | DX: M54.16 Radiculopathy, lumbar region (principal) | CPT/HCPCS: 86850; 86900; 86901 ==

== ENCOUNTER 2023-11-30 10:18 | Emergency (ER) | payer OTHER ==
--- NOTE | 2023-11-30 10:49 | ED ---
Lower Extremity Injury HPI - General Chief Complaint: Extremity Injury, Lower Stated Complaint: L Toe Injury Time Seen by Provider: 11/30/23 10:38 Source: family, RN notes reviewed Mode of arrival: wheelchair Limitations: no limitations - History of Present Illness Initial Comments: 38-year-old female presenting with left great toe injury 2 hours ago. States she was walking down the steps this morning and her toe got stuck and bent backwards. She felt immediate pain and has had pain with ambulating since the injury. Denies numbness or tingling. Denies other injuries. - Related Data Home Medications Medication Instructions Recorded Confirmed Baclofen [Lioresal] 10 mg PO DAILY 01/15/20 06/15/21 Cetirizine HCl [Zyrtec] 10 mg PO HS 01/15/20 06/15/21 FLUoxetine HCL [PROzac] 20 mg PO HS 01/15/20 06/15/21 Levalbuterol Tartrate 1 puff INHALATION RT-QID PRN 01/15/20 06/15/21 [Levalbuterol Tartrate 45 MCG Hfa] Naproxen 500 mg PO Q12H PRN 01/15/20 06/15/21 Prazosin HCl 2 mg PO HS 01/15/20 06/15/21 QUEtiapine FUMARATE [SEROquel] 200 mg PO HS 01/15/20 06/15/21 clonazePAM [Klonopin ODT Wafer] 0.25 mg PO BID PRN 01/15/20 06/15/21 Evolocumab [Repatha Sureclick] 140 mg SQ Q14D 08/23/20 06/15/21 QUEtiapine [SEROquel] 100 mg PO HS 08/23/20 06/15/21 Salmeterol Xinafoate [Serevent 1 puff INHALATION RT-BID 08/23/20 06/15/21 Diskus] OXcarbazepine [Trileptal] 300 mg PO BID 06/02/21 06/15/21 Ergocalciferol [Vitamin D2 (1250 50,000 unit PO WEEKLY 06/15/21 06/15/21 Mcg = 63257 Iu)] Allergies Allergy/AdvReac Type Severity Reaction Status Date / Time cephalexin [From Keflex] Allergy Rash/Hives Verified 11/30/23 10:24 Iodinated Contrast Media Allergy Rash/Hives Verified 11/30/23 10:24 [Iodinated Contrast Media - IV Dye] ketorolac [From Toradol] Allergy Rash/Hives Verified 11/30/23 10:24 latex Allergy Swelling Verified 11/30/23 10:24 tramadol [From Ultram] AdvReac Intermediate Abdominal Verified 11/30/23 10:24 Pain, nausea/wretching Review of Systems ROS Statement: Those systems with pertinent positive or pertinent negative responses have been documented in the HPI. ROS Other: All systems not noted in ROS Statement are negative. Past Medical History Past Medical History: Asthma, GERD/Reflux, Hyperlipidemia Additional Past Medical History / Comment(s): BACK PAIN. History of Any Multi-Drug Resistant Organisms: None Reported Past Surgical History: Back Surgery, Cholecystectomy, Hernia Repair, Orthopedic Surgery Additional Past Surgical History / Comment(s): Kristopher fundoplasty, back surgery X2, repair of recurrent paraesophageal hiatal hernia X2. Past Anesthesia/Blood Transfusion Reactions: Motion Sickness, Postoperative Nausea & Vomiting (PONV) Additional Past Anesthesia/Blood Transfusion Reaction / Comment(s): Emotional coming out of anesthesia. Past Psychological History: Anxiety, Bipolar, Depression Smoking Status: Former smoker Past Alcohol Use History: None Reported Past Drug Use History: Marijuana - Past Family History Mother Family Medical History: No Reported History General Exam Limitations: no limitations General appearance: alert, in no apparent distress Head exam: Present: atraumatic, normocephalic, normal inspection Left Lower Leg exam: Present: normal inspection, full ROM. Absent: tenderness, swelling Ankle exam: Present: normal inspection, full ROM. Absent: tenderness, swelling Foot/Toe exam: Present: tenderness, swelling. Absent: normal inspection (Mild edema along left great toe. No erythema. Moderate tenderness to palpation along entire digit. Limited DIP range of motion. Full metacarpophalangeal ROM. Full sensation and cap refill less than 2 seconds), full ROM, abrasion, laceration Neurovascular tendon exam: Present: no vascular compromise. Absent: pulse deficit, abnormal cap refill, sensory deficit Course Vital Signs 11/30/23 10:22 Temperature 98.1 F Pulse Rate 85 Respiratory 18 Rate Blood Pressure 109/69 O2 Sat by Pulse 97 Oximetry Procedures - Orthopedic Fracture Reduction Fracture #1 Consent Obtained: verbal consent Side: left Fracture Reduction Location: toe Analgesia: digital block Technique: direct manipulation Post Reduction X-rays Demonstrate: anatomical reduction Post-Reduction Neuro Exam: intact Post-Reduction Vascular Exam: intact Splint Applied: Yes (karine taping) Patient Tolerated Procedure: well, no complications Additional Comments: Neurovascularly intact status post reduction Medical Decision Making - Medical Decision Making Was pt. sent in by a medical professional or institution (, [facility], TUBE BUILDER, urgent care, hospital, or alf...) When possible be specific @ -No Did you speak to anyone other than the patient for history (EMS, parent, family, police, friend...)? What history was obtained from this source @ -No Did you review nursing and triage notes (agree or disagree)? Why? @ -I reviewed and agree with nursing and triage notes Were old charts reviewed (outside hosp., previous admission, EMS record, old EKG, old radiological studies, urgent care reports/EKG's, alf records)? Report findings @ -No old charts were reviewed Differential Diagnosis (chest pain, altered mental status, abdominal pain women, abdominal pain men, vaginal bleeding, weakness, fever, dyspnea, syncope, headache, dizziness, GI bleed, back pain, seizure, CVA, palpatations, mental health, musculoskeletal)? @ -Differential Musculoskeletal Muscular strain, contusion, ligament sprain, fracture, arthritis, septic arthritis, bursitis, cellulitis, muscle spasm, nerve compression, DVT, arterial occlusion, herpes zoster, electrolyte abnormality, tumor.... This is not meant to be in all inclusive list EKG interpreted by me (3pts min.). @ -None X-rays interpreted by me (1pt min.). @ -X-ray of left foot reveals acute fracture of first digit proximal phalanx with intra-articular extension to the interphalangeal joint, associated soft tissue swelling. Repeat x-ray status post reduction revealed improved anatomic alignment of left first digit proximal phalanx fracture CT interpreted by me (1pt min.). @ -None done U/S interpreted by me (1pt. min.). @ -None done What testing was considered but not performed or refused? (CT, X-rays, U/S, labs)? Why? @ -None What meds were considered but not given or refused? Why? @ -None Did you discuss the management of the patient with other professionals (professionals i.e. Dr., PA, TUBE BUILDER, lab, RT, psych nurse, social media senior associate, melt house drag operator, teacher, property utilization officer, rn case manager hospice)? Give summary @ -No Was smoking cessation discussed for >3mins.? @ -No Was critical care preformed (if so, how long)? @ -No Were there social determinants of health that impacted care today? How? (Homelessness, low income, unemployed, alcoholism, drug addiction, transportation, low edu. Level, literacy, decrease access to med. care, [facility], rehab)? @ -No Was there de-escalation of care discussed even if they declined (Discuss DNR or withdrawal of care, Hospice)? DNR status @ -No What co-morbidities impacted this encounter? (DM, HTN, Smoking, COPD, CAD, Cancer, CVA, ARF, Chemo, Hep., AIDS, mental health diagnosis, sleep apnea, morbid obesity)? @ -None Was patient admitted / discharged? Hospital course, mention meds given and route, prescriptions, significant lab abnormalities, going to OR and other pertinent info. @ -Patient was discharged. Patient was seen and evaluated for left great toe injury this morning. Neurovascularly intact. Initial x-ray of left foot revealed acute fracture of first digit proximal phalanx with intra-articular extension to the interphalangeal joint with associated soft tissue swelling. Digital block was placed and successful reduction was performed via manual manipulation. Patient tolerated procedure well. Patient is neurovascularly intact status post procedure. Repeat x-ray reveals improved anatomic alignment of left first digit proximal phalanx fracture. Karine taping applied and patient was given postop shoe. Orthopedic referral given. Supportive care discussed. Strict return parameters discussed with patient and she shows understanding agrees to plan. Case discussed with my attending Dr. Echols. Patient discharged in stable condition. Undiagnosed new problem with uncertain prognosis? @ -No Drug Therapy requiring intensive monitoring for toxicity (Heparin, Nitro, Insulin, Cardizem)? @ -No Were any procedures done? @ -Reduction of great toe was performed Diagnosis/symptom? @ -Left great toe fracture Acute, or Chronic, or Acute on Chronic? @ -Acute Uncomplicated (without systemic symptoms) or Complicated (systemic symptoms)? @ -Uncomplicated Side effects of treatment? @ -No Exacerbation, Progression, or Severe Exacerbation? @ -No Poses a threat to life or bodily function? How? (Chest pain, [place], [place], pneumonia, PE, COPD, DKA, ARF, appy, cholecystitis, CVA, Diverticulitis, Homicidal, Suicidal, threat to staff... and all critical care pts) @ -Low likelihood Disposition Clinical Impression: Fracture of left great toe Disposition: HOME SELF-CARE Condition: Stable Instructions (If sedation given, give patient instructions): Toe Fracture (ED) Additional Instructions: Please follow-up with orthopedics within the week. Wear postop shoe as needed to help prevent weightbearing on left great toe. Take ibuprofen/Tylenol as needed for pain. Please return to the Emergency Department if symptoms worsen or any other concerns. Is patient prescribed a controlled substance at d/c from ED?: No Referrals: Eliseo Dominguez MD [Primary Care Provider] - 1-2 days Rojas Hong MD [Medical Doctor] - 1-2 days Time of Disposition: 14:18
--- NOTE | 2023-11-30 12:09 | XR ---
EXAMINATION TYPE: XR foot complete LT DATE OF EXAM: 11/30/2023 11:21 AM CLINICAL INDICATION:Female, 38 years old with history of left great toe injury; [facility] COMPARISON: None TECHNIQUE: XR foot complete LT examined in the AP, oblique, and lateral projections. FINDINGS/IMPRESSION: Acute fracture of the first digit proximal phalanx with intra-articular extension to the interphalang eal joint. There is associated soft tissue spine.
[2023-11-30] MEDS: LIDOCAINE 1% INJ 10MG/ML (20 ML MDV) SQ ONE (13:19)
--- NOTE | 2023-11-30 14:05 | XR ---
EXAMINATION TYPE: XR foot complete LT DATE OF EXAM: 11/30/2023 1:58 PM CLINICAL INDICATION:Female, 38 years old with history of left toe fx s/p reduction; [facility] COMPARISON: Same day TECHNIQUE: XR foot complete LT examined in the AP, oblique, and lateral projections. FINDINGS/IMPRESSION: Improved anatomic alignment of the left first digit proximal phalanx fracture. Intra-articular extens ion remains. No new fractures. Soft tissue swelling around the foot.
[2023-11-30 14:21] VITALS: BP 115/74; PULSE 74; RESP 17; TEMP 98.6
== END 2023-11-30 14:27 | disposition home or self-care (01) ==
LOC: EC 10:18
DX: S92.402A Displaced unspecified fracture of left great toe, initial encounter for closed fracture (principal); F12.90 Cannabis use, unspecified, uncomplicated; Z87.891 Personal history of nicotine dependence; Z91.040 Latex allergy status; Z91.041 Radiographic dye allergy status; Z88.1 Allergy status to other antibiotic agents; Z88.5 Allergy status to narcotic agent; W22.09XA Striking against other stationary object, initial encounter; Y93.01 Activity, walking, marching and hiking
CPT/HCPCS: 73630; 28515; 99283; J2001